=== PATIENT | female | born 1970 | race Caucasian/White ===

== ENCOUNTER → 2018-04-13 | Day surgery (SDC) | payer OTHER ==
--- OUTSIDE RECORDS SUMMARY | 2018-04-13 09:57 | XMS REPORT ---
:1970 [facility] Address [address] [place] [address] [address] Care Team Providers Name Role Phone Unavailable Unavailable Unavailable Payers Payer Name Policy Type Policy Number Effective Date Expiration Date Problems This patient has no known problems. Allergies, Adverse Reactions, Alerts This patient has no known allergies or adverse reactions. Medications This patient has no known medications.
--- NOTE | 2018-04-13 10:57 | RAD REPORT ---
EXAM DESCRIPTION: US - Extremity Nonvascular Complete - 04/13/2018 10:48 am CLINICAL HISTORY: R93.89 COMPARISON: Outside CT imaging from [facility] was reviewed. FINDINGS: Real-time sonography was performed of the left face and left parotid region for preprocedu re evaluation and planning. Outside imaging studies were reviewed. Radiologist directed ultrasound was performed which failed to demonstrate a suspicious mass despite p rolonged sonographic assessment. A few normal sized and appearing intraparotid lymph nodes were seen the largest measuring about 6 mm. All of the visualized lymph nodes in the parotid gland demonstrated a fatty hilus and normal reniform shape. IMPRESSION: No suspicious left parotid gland mass or surrounding mass could be identified despite pr olonged radiologist directed sonography. Several intraparotid lymph nodes were seen, however all demo nstrated benign sonographic features.
== END ==
LOC: FNA 09:43
PROVIDERS: ATTEND Otolaryngology
DX: R93.89 Abnormal findings on diagnostic imaging of other specified body structures (principal)
CPT/HCPCS: 76881

== ENCOUNTER 2018-05-10 00:09 | Emergency (ER) | payer OTHER ==
--- OUTSIDE RECORDS SUMMARY | 2018-05-10 00:11 | XMS REPORT ---
:1970 [facility] Address [address] [place] [address] [address] Care Team Providers Name Role Phone Unavailable Unavailable Unavailable Payers Payer Name Policy Type Policy Number Effective Date Expiration Date Problems This patient has no known problems. Allergies, Adverse Reactions, Alerts This patient has no known allergies or adverse reactions. Medications This patient has no known medications.
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
[2018-05-10 02:43] VITALS: TEMP 98.2; O2SAT 96
[2018-05-10 02:44] VITALS: BP 167/97
--- NOTE | 2018-05-10 08:21 | RAD REPORT ---
EXAM DESCRIPTION: RAD - Foot Left 3 View - 05/10/2018 1:43 am CLINICAL HISTORY: PAIN Trauma COMPARISON: No comparisons FINDINGS: Prominent soft tissue swelling is seen along the dorsal aspect of the forefoot. No acute f racture demonstrated. Large posterior and plantar calcaneal spurs are noted.
== END 2018-05-10 01:58 | disposition home or self-care (01) ==
LOC: ER 00:09
DX: S90.32XA Contusion of left foot, initial encounter (principal); M77.32 Calcaneal spur, left foot; W23.0XXA Caught, crushed, jammed, or pinched between moving objects, initial encounter; I10 Essential (primary) hypertension; Z79.899 Other long term (current) drug therapy
CPT/HCPCS: 99283

== ENCOUNTER 2019-03-09 21:18 | Inpatient (IN) | payer SELFPAY ==
--- OUTSIDE RECORDS SUMMARY | 2019-03-09 21:21 | XMS REPORT ---
:1970 [facility] Address [address] [place] [address] Dr. Hollingsworth [address] [place] [id number] Care Team Providers Name Role Phone Unavailable Unavailable Unavailable Payers Payer Name Policy Type Policy Number Effective Date Expiration Date Problems This patient has no known problems. Allergies, Adverse Reactions, Alerts This patient has no known allergies or adverse reactions. Medications This patient has no known medications.
[2019-03-09] MEDS ORDERED: KETOROLAC 30 MG/ML INJ ONE (21:59)
[2019-03-09] MEDS ORDERED: METOCLOPRAMIDE 10 MG/2mL INJ ONE (21:59)
[2019-03-09] MEDS ORDERED: NA CHLORIDE 0.9% 1,000 ML ONE (22:00)
[2019-03-09] MEDS ORDERED: DIPHENHYDRAMINE 50 MG/ML VIAL ONE (22:00)
[2019-03-09] MEDS ORDERED: IPRATROPIUM BROM 0.5MG/2.5ML ONE (23:28)
[2019-03-09] MEDS ORDERED: ALBUTEROL 2.5 MG/3 ML NEB SOL ONE (23:28)
[2019-03-10 00:09] LABS: Absolute Lymphocytes (CBC) 1.8 K/uL (0.7-4.9); Basophils % 0.8 % (0-1.3); Hematocrit 35.2 % (36.0-45.0); Lymphocytes % 28.7 % (15.3-44.8); MPV 6.9 fL (7.6-11.3); RBC Red Blood Cell Count 4.75 M/uL (3.86-4.86)
[2019-03-10 00:30] LABS: BUN Blood Urea Nitrogen 9 mg/dL (7-18); Bicarbonate 32 mmol/L (21-32); Glucose Level 108 mg/dL (74-106); NT PRO-BNP 257 pg/mL (<125); Potassium 3.5 mmol/L (3.5-5.1); Sodium Level 144 mmol/L (136-145)
--- NOTE | 2019-03-10 00:42 | ER ---
Nurse's Notes [facility] Name: Deyvi Avendano Age: 48 yrs Sex: Female : 1970 Arrival Date: 03/09/2019 Time: 21:29 Bed 5 Private MD: Diagnosis: Acute pulmonary edema;Migraine;Hypoxia Presentation: 03/09 21:32 Presenting complaint: Patient states: Migraine for the past 4 days, states that she has aj not had a migraine in years so she is not taking any preventative medications. Patient also reports that she has had a cough for the past 2 to 3 weeks. Patient's blood pressure is 162/107. Patient states that this is a normal blood pressure for her. Transition of care: patient was not received from another setting of care. Onset of symptoms was 2019. Risk Assessment: Do you want to hurt yourself or someone else? Patient reports no desire to harm self or others. Initial Sepsis Screen: Does the patient meet any 2 criteria? No. Patient's initial sepsis screen is negative. Does the patient have a suspected source of infection? No. Patient's initial sepsis screen is negative. Care prior to arrival: None. 21:32 Method Of Arrival: Ambulatory [facility] 21:32 Acuity: KENYETTA 3 aj1 Triage Assessment: 21:35 Headache History: The patient has had previous headaches and this one is similar to aj1 previous episodes. General: Appears in no apparent distress. uncomfortable, Behavior is calm, cooperative, appropriate for age. Pain: Complains of pain in top of head Pain currently is 6 out of 10 on a pain scale. Quality of pain is described as aching, Pain began 4 days ago Also complains of nausea. Neuro: Level of Consciousness is awake, alert, obeys commands. Cardiovascular: Patient's skin is warm and dry. Respiratory: Airway is patent Respiratory effort is even, unlabored, Respiratory pattern is regular, symmetrical. 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 - Social history:: Smoking status: Patient/guardian denies using tobacco. - Family history:: Father has/had diabetes, Mother has/had cancer, hypertension. - Ebola Screening: : Patient denies travel to an Ebola-affected area in the 21 days before illness onset. Screenin:59 Abuse screen: Denies threats or abuse. Nutritional screening: No deficits noted. vc Tuberculosis screening: No symptoms or risk factors identified. Fall Risk None identified. Assessment: 22:53 General: Appears in no apparent distress. uncomfortable, ill, obese, Behavior is calm, vc cooperative, appropriate for age. Pain: Complains of pain in head and behind eyes Pain currently is 8 out of 10 on a pain scale. Pain began 2-3 days ago. Alleviated by nothing. Neuro: Level of Consciousness is awake, alert, obeys commands, Oriented to person, place, time. Cardiovascular: Capillary refill < 3 seconds Patient's skin is warm and dry. Respiratory: Airway is patent Respiratory effort is patient is SOB on exertion. Respiratory pattern is regular. GI: Abdomen is round non-distended, obese. : No signs and/or symptoms were reported regarding the genitourinary system. EENT: Reports photophobia. Derm: Skin is intact, is healthy with good turgor. Musculoskeletal: Range of motion: intact in all extremities. 23:00 Reassessment: Patient and/or family updated on plan of care and expected duration. Pain vc level reassessed. Patient is alert, oriented x 3, equal unlabored respirations, skin warm/dry/pink. 23:15 Reassessment: patient states she no longer has a headache. Patients laying on right vc side with eyes closed, oxygen saturation is 86%, placed on 3L O2 via nasal canula. patients SpO2 increased to 92%. Patient states she was awake and not sleeping. Provider notified. 03/10 00:00 Reassessment: Patient and/or family updated on plan of care and expected duration. Pain vc level reassessed. patient laying with eyes closed, unlabored respirations. Patient denies pain at this time. 00:58 Reassessment: Hospitalist at bedside. vc Vital Signs: 03/09 21:35 BP 162 / 107; Pulse 87; Resp 20; Temp 98.3; Pulse Ox 92% on R/A; Weight 126.1 kg (R); aj1 Height 5 ft. 2 in. (157.48 cm) (R); 22:00 BP 183 / 116; Pulse 88; Resp 18; Pulse Ox 93% on R/A; Pain 10/10; vc 23:00 BP 173 / 96; Pulse 88; Pulse Ox 90% on 2 lpm NC; Pain 0/10; vc 23:15 Resp 18; Pulse Ox 86% on 2 lpm NC; vc 23:17 Pulse Ox 92% on 4 lpm NC; vc 03/10 00:00 BP 148 / 76; Pulse 87; Resp 16; Pulse Ox 92% on 3 lpm NC; Weight 126.1 kg; Height 5 ft. vc 2 in. (157.48 cm); Pain 0/10; 01:00 BP 165 / 98; Pulse 88; Resp 18; Temp 97.9; Pulse Ox 96% on 3 lpm NC; Pain 0/10; vc 00:00 Body Mass Index 50.85 (126.10 kg, 157.48 cm) vc Elgin Coma Score: 03/09 22:56 Eye Response: spontaneous(4). Verbal Response: oriented(5). Motor Response: obeys kb commands(6). Total: 15. ED Course: 21:29 Patient arrived in ED. cf2 21:35 Triage completed. aj1 21:35 Arm band placed on Patient placed in an exam room. aj1 21:38 Mary Grace Storey, BONIFACIO is Primary Nurse. vc 21:39 Domin[facility] Stewart [facility]C [facility] kb 21:39 Luis Alberto Croft MD is Attending Physician. kb 21:40 Patient has correct armband on for positive identification. Placed in gown. Bed in low vc position. Call light in reach. 22:05 Inserted saline lock: 20 gauge in right forearm, using aseptic technique. ds4 22:19 Chest Single View XRAY In Process Unspecified. EDMS 03/10 00:41 Emerson Mcdonald is Hospitalizing Provider. kb 01:26 No provider procedures requiring assistance completed. Patient admitted, IV remains in vc place. Administered Medications: 03/09 22:10 Drug: NS 0.9% 1000 ml Route: IV; Rate: 1000 ml; Site: right forearm; vc 03/10 01:31 Follow up: Response: Pain is decreased; IV Status: Order to discontinue infusion vc 03/09 22:10 Drug: Reglan 10 mg Route: IVP; Site: right forearm; vc 03/10 01:31 Follow up: Response: No adverse reaction vc 03/09 22:10 Drug: Benadryl 12.5 mg Route: IVP; Site: right forearm; vc 03/10 01:30 Follow up: Response: No adverse reaction vc 03/09 22:10 Drug: TORadol - Ketorolac 15 mg Route: IVP; Site: right upper arm; vc 03/10 00:03 Follow up: Response: Pain is decreased vc 03/09 23:30 Drug: Albuterol 2.5 mg Route: Inhalation; vc 23:30 Drug: AtroVENT Aerosol 0.5 mg Route: Inhalation; vc 03/10 01:00 Drug: Rocephin 1 grams Route: IV; Rate: calculated rate; Site: right forearm; vc 01:12 Follow up: Response: No adverse reaction; IV Status: Completed infusion vc 01:30 Follow up: Response: No adverse reaction vc 01:00 Drug: Lasix 40 mg Route: IVP; Site: right forearm; vc 01:29 Follow up: Response: No adverse reaction vc Outcome: 00:41 Decision to Hospitalize by Provider. kb 01:26 Admitted to ER Hold. Please see [facility] for further documentation. vc 01:26 Condition: good 01:26 Instructed on the need for admit. 03:58 Patient left the ED. vc Signatures: Dispatcher [employer] EDDominique Ayala, FINISHING TRIMMER-C FINISHING TRIMMER-CkDonna Bourgeois RN RN aj1 Phill Estevez ds4 Mark Ahumada cf2 Mary Grace Storey RN RN vc Corrections: (The following items were deleted from the chart) 01:20 03/09 23:30 Reassessment: patient states headache is decreased. vc vc 03/10 01:21 03/09 21:35 LMP N/A - Irregular menses aj1 vc
--- NOTE | 2019-03-10 00:42 | EDPHYS ---
Physician Documentation [facility] Name: Deyvi Avendano Age: 48 yrs Sex: Female : 1970 Arrival Date: 03/09/2019 Time: 21:29 Bed 5 Private MD: ED Physician Luis Alberto Croft HPI: 03/09 22:10 This 48 yrs old Female presents to ER via Ambulatory with complaints of kb Headache. 22:10 The patient complains of pain to the top of head. kb 22:58 The patient describes the headache as constant, throbbing. Onset: The symptoms/episode kb began/occurred 4 day(s) ago. Associated signs and symptoms: Pertinent positives: Photophobia. Severity of symptoms: At its worst the pain was mild, moderate, in the emergency department the pain is unchanged. Headache History: The patient has had previous headaches and this one is similar to previous episodes. The symptoms are alleviated by nothing. the symptoms are aggravated by lights. The patient has experienced similar episodes in the past. The patient has not recently seen a physician. Pt reports headache for 4 days. States she has a history of migraines, but hasn't had on in years. States she normally takes Advil Migraine and they go away, but it didn't work for this one. states this headache feels similar to the ones she has had in the past. Also reports cough for 3 weeks, denies fever. 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 - Social history:: Smoking status: Patient/guardian denies using tobacco. - Family history:: Father has/had diabetes, Mother has/had cancer, hypertension. - Ebola Screening: : Patient denies travel to an Ebola-affected area in the 21 days before illness onset. ROS: 22:57 Constitutional: Negative for fever, chills, and weight loss, ENT: Negative for injury, kb pain, and discharge, Neck: Negative for injury, pain, and swelling, Cardiovascular: Negative for chest pain, palpitations, and edema, Abdomen/GI: Negative for abdominal pain, nausea, vomiting, diarrhea, and constipation, Back: Negative for injury and pain, : Negative for injury, bleeding, discharge, and swelling, MS/Extremity: Negative for injury and deformity, Skin: Negative for injury, rash, and discoloration. 22:57 Respiratory: Positive for cough, with no reported sputum, Negative for dyspnea on exertion, hemoptysis, orthopnea, pleurisy, shortness of breath, sputum production, wheezing. 22:57 Neuro: Positive for headache. Exam: 22:57 Constitutional: This is a well developed, well nourished patient who is awake, alert, kb and in no acute distress. Head/Face: Normocephalic, atraumatic. Eyes: Pupils equal round and reactive to light, extra-ocular motions intact. Lids and lashes normal. Conjunctiva and sclera are non-icteric and not injected. Cornea within normal limits. Periorbital areas with no swelling, redness, or edema. ENT: Nares patent. No nasal discharge, no septal abnormalities noted. Tympanic membranes are normal and external auditory canals are clear. Oropharynx with no redness, swelling, or masses, exudates, or evidence of obstruction, uvula midline. Mucous membranes moist. Neck: Trachea midline, no thyromegaly or masses palpated, and no cervical lymphadenopathy. Supple, full range of motion without nuchal rigidity, or vertebral point tenderness. No Meningismus. Chest/axilla: Normal chest wall appearance and motion. Nontender with no deformity. No lesions are appreciated. Cardiovascular: Regular rate and rhythm with a normal S1 and S2. No gallops, murmurs, or rubs. Normal PMI, no JVD. No pulse deficits. Respiratory: Lungs have equal breath sounds bilaterally, clear to auscultation and percussion. No rales, rhonchi or wheezes noted. No increased work of breathing, no retractions or nasal flaring. Abdomen/GI: Soft, non-tender, with normal bowel sounds. No distension or tympany. No guarding or rebound. No evidence of tenderness throughout. Skin: Warm, dry with normal turgor. Normal color with no rashes, no lesions, and no evidence of cellulitis. MS/ Extremity: Pulses equal, no cyanosis. Neurovascular intact. Full, normal range of motion. Vital Signs: 21:35 BP 162 / 107; Pulse 87; Resp 20; Temp 98.3; Pulse Ox 92% on R/A; Weight 126.1 kg (R); aj1 Height 5 ft. 2 in. (157.48 cm) (R); 22:00 BP 183 / 116; Pulse 88; Resp 18; Pulse Ox 93% on R/A; Pain 10/10; vc 23:00 BP 173 / 96; Pulse 88; Pulse Ox 90% on 2 lpm NC; Pain 0/10; vc 23:15 Resp 18; Pulse Ox 86% on 2 lpm NC; vc 23:17 Pulse Ox 92% on 4 lpm NC; vc 03/10 00:00 BP 148 / 76; Pulse 87; Resp 16; Pulse Ox 92% on 3 lpm NC; Weight 126.1 kg; Height 5 ft. vc 2 in. (157.48 cm); Pain 0/10; 01:00 BP 165 / 98; Pulse 88; Resp 18; Temp 97.9; Pulse Ox 96% on 3 lpm NC; Pain 0/10; vc 00:00 Body Mass Index 50.85 (126.10 kg, 157.48 cm) vc [place] Coma Score: 03/09 22:56 Eye Response: spontaneous(4). Verbal Response: oriented(5). Motor Response: obeys kb commands(6). Total: 15. MDM: 21:40 Patient medically screened. kb 22:56 Data reviewed: vital signs, nurses notes. Data interpreted: Pulse oximetry: on room air kb is 96 %. Interpretation: normal. 03/10 00:30 ED course: Headache resolved. kb 00:38 Physician consultation: Emerson Mcdonald was contacted at 00:39, regarding admission, to the telemetry unit. patient's condition, and will see patient in ED, shortly. ED course: After neb treatment, pt's oxygen level was 86-88% on room air. When pt falls asleep oxygen level decreased to 79%. Will admit pt for pulmonary edema and hypoxia.. 00:41 ED course: Pt has never had pulmonary edema in the past. kb 03/09 23:24 Order name: CBC with Diff; Complete Time: 00:22 kb 03/09 23:24 Order name: Basic Metabolic Panel; Complete Time: 00:31 kb 03/09 21:52 Order name: Chest Single View XRAY kb 03/09 23:24 Order name: BNP; Complete Time: 00:31 kb 03/10 03:36 Order name: ABG Arterial Blood Gas EDMS 03/10 00:38 Order name: EKG; Complete Time: 00:38 kb 03/09 21:52 Order name: IV Start; Complete Time: 22:14 kb 03/10 00:38 Order name: EKG - Nurse/Tech; Complete Time: 02:21 kb 03/10 00:40 Order name: Oxygen Per Protocol; Complete Time: 00:42 kb Administered Medications: 03/09 22:10 Drug: NS 0.9% 1000 ml Route: IV; Rate: 1000 ml; Site: right forearm; vc 03/10 01:31 Follow up: Response: Pain is decreased; IV Status: Order to discontinue infusion vc 03/09 22:10 Drug: Reglan 10 mg Route: IVP; Site: right forearm; vc 03/10 01:31 Follow up: Response: No adverse reaction vc 03/09 22:10 Drug: Benadryl 12.5 mg Route: IVP; Site: right forearm; vc 03/10 01:30 Follow up: Response: No adverse reaction vc 03/09 22:10 Drug: TORadol - Ketorolac 15 mg Route: IVP; Site: right upper arm; vc 03/10 00:03 Follow up: Response: Pain is decreased vc 03/09 23:30 Drug: Albuterol 2.5 mg Route: Inhalation; vc 23:30 Drug: AtroVENT Aerosol 0.5 mg Route: Inhalation; vc 03/10 01:00 Drug: Rocephin 1 grams Route: IV; Rate: calculated rate; Site: right forearm; vc 01:12 Follow up: Response: No adverse reaction; IV Status: Completed infusion vc 01:30 Follow up: Response: No adverse reaction vc 01:00 Drug: Lasix 40 mg Route: IVP; Site: right forearm; vc 01:29 Follow up: Response: No adverse reaction vc Disposition: 04:29 Co-signature as Attending Physician, Luis Alberto Croft MD. rn Disposition: 03/10/19 00:41 Hospitalization ordered by Emerson Mcdonald for Inpatient Admission. Preliminary diagnosis are Acute pulmonary edema, Migraine, Hypoxia. - Bed requested for Telemetry/MedSurg (Inpatient). - Status is Inpatient Admission. vc - Condition is Stable. - Problem is new. - Symptoms are unchanged. UTI on Admission? No Signatures: Dispatcher [employer] EDMS Dominique Stewart, TAMERA-Araceli PHILIP-Donna Kiser RN RN aj1 Kaila Luu RN RN bb Nieto, Roman, MD MD rn Lasagna, Tonya, RN RN tl1 Mary Grace Storey RN RN vc Corrections: (The following items were deleted from the chart) 03/09 22:58 22:57 Constitutional: This is a well developed, well nourished patient who is awake, kb alert, and in no acute distress. Head/Face: Normocephalic, atraumatic. ENT: Nares patent. No nasal discharge, no septal abnormalities noted. Tympanic membranes are normal and external auditory canals are clear. Oropharynx with no redness, swelling, or masses, exudates, or evidence of obstruction, uvula midline. Mucous membranes moist. Neck: Trachea midline, no thyromegaly or masses palpated, and no cervical lymphadenopathy. Supple, full range of motion without nuchal rigidity, or vertebral point tenderness. No Meningismus. Chest/axilla: Normal chest wall appearance and motion. Nontender with no deformity. No lesions are appreciated. Cardiovascular: Regular rate and rhythm with a normal S1 and S2. No gallops, murmurs, or rubs. Normal PMI, no JVD. No pulse deficits. Respiratory: Lungs have equal breath sounds bilaterally, clear to auscultation and percussion. No rales, rhonchi or wheezes noted. No increased work of breathing, no retractions or nasal flaring. Abdomen/GI: Soft, non-tender, with normal bowel sounds. No distension or tympany. No guarding or rebound. No evidence of tenderness throughout. Skin: Warm, dry with normal turgor. Normal color with no rashes, no lesions, and no evidence of cellulitis. MS/ Extremity: Pulses equal, no cyanosis. Neurovascular intact. Full, normal range of motion. luciano 03/10 00:31 03/09 22:58 Pt reports headache for 4 days. States she has a history of migraines, but kb hasn't had on in years. States she normally takes Advil Migraine and they go away, but it didn't work for this one. states this headache feels similar to the ones she has had in the past. . luciano 03/10 00:40 00:30 Counseling: I had a detailed discussion with the patient and/or guardian luciano regarding: the historical points, exam findings, and any diagnostic results supporting the discharge/admit diagnosis, lab results, radiology results, the need for outpatient follow up, a family practitioner, to return to the emergency department if symptoms worsen or persist or if there are any questions or concerns that arise at home, luciano : 00:41 Hospitalization Ordered by Emerson Mcdonald for Inpatient Admission. Preliminary bb diagnosis is Acute pulmonary edema; Migraine; Hypoxia. Bed requested for Telemetry/MedSurg (Inpatient). Status is Inpatient Admission. Condition is Stable. Problem is new. Symptoms are unchanged. UTI on Admission? No. kb 01:00 01:03/10/2019 00:41 Hospitalization Ordered by Emerson Mcdonald for Inpatient bb Admission. Preliminary diagnosis is Acute pulmonary edema; Migraine; Hypoxia. Bed requested for [facility] ER HOLD. Status is Inpatient Admission. Condition is Stable. Problem is new. Symptoms are unchanged. UTI on Admission? No. bb 02:03 01:00 03/10/2019 00:41 Hospitalization Ordered by Emerson Mcdonald for Inpatient tl1 Admission. Preliminary diagnosis is Acute pulmonary edema; Migraine; Hypoxia. Bed requested for [facility] ER HOLD. Status is Inpatient Admission. Condition is Stable. Problem is new. Symptoms are unchanged. UTI on Admission? No. bb 03:58 02:03 03/10/2019 00:41 Hospitalization Ordered by Emerson Mcdonald for Inpatient vc Admission. Preliminary diagnosis is Acute pulmonary edema; Migraine; Hypoxia. Bed requested for Telemetry/MedSurg (Inpatient). Status is Inpatient Admission. Condition is Stable. Problem is new. Symptoms are unchanged. UTI on Admission? No. tl1
[2019-03-10] MEDS ORDERED: FUROSEMIDE 40 MG/4 ML VIAL ONE ×2 (00:53→16:33)
[2019-03-10] MEDS ORDERED: CEFTRIAXONE/SWI 1gm 1 GM/10 ML SYR ONE (00:53)
--- NOTE | 2019-03-10 01:56 | P.HP ---
Certification for Inpatient Patient admitted to: Observation With expected LOS: <2 Midnights Practitioner: I am a practitioner with admitting privileges, knowledge of patient current condition, hospital course, and medical plan of care. Services: Services provided to patient in accordance with Admission requirements found in Title 42 Section 412.3 of the Code of Federal Regulations Patient History Date of Service: 03/10/19 Reason for admission: Headache, shortness of breath History of Present Illness: 48-year-old morbidly obese woman with a history of hypertension presented to the emergency department with a complaint of headache. Her workup in the ED which included a chest x-ray demonstrated evidence of pulmonary edema. Patient noted to desaturate to 86% on 2 L of oxygen during sleep. She reports shortness of breath of 3-4 weeks duration. She has been following with Dr. Worley for hypertension and coronary artery disease. Her blood work in the ED is unremarkable except anemia. I suspect patient has obstructive sleep apnea causing hypoxemia during sleep. Patient is placed under observation for further management of CHF. Allergies morphine Allergy (Verified 03/10/19 06:07) Itching/Hives/Rash Home Medications: lisinopriL [Prinivil*] 1 tab PO BID 02/04/14 predniSONE [Deltasone] 20 mg PO DAILY #7 tab 10/15/18 Amlodipine [Norvasc] 10 mg PO DAILY 03/10/19 Carvedilol [Coreg] 3.125 mg PO TID 03/10/19 Hydralazine [Apresoline] 10 mg PO PRN MDD unknown 03/10/19 - Past Medical/Surgical History Diabetic: No -: Breast Ca -: HTN -: [place] -: DVT -: Left knee replacement -: choley -: c-sec x3 -: carpal tunnel left hand - Family History Father -: Diabetes Mother -: Diabetes, Other (see notes) Notes: Parkinsons - Social History Alcohol use: No CD- Drugs: No Caffeine use: Yes Review of Systems Other: General: No fever, no malaise, no unintentional weight loss. Eyes: No eye discharge, Respiratory: No cough. CVS: No chest pain, no palpitation, no lightheadedness. GI: No abdominal pain, no nausea no vomit, no constipation, no diarrhea. Genitourinary: No dysuria, no urinary frequency, no incontinence, no hematuria. Musculoskeletal: No joint pains, or joint swelling, no gait instability. Neurology: No asymmetric weakness, no problem with swallowing. Except as documented, all other systems reviewed and negative. Physical Examination - Physical Exam General: Alert, In no apparent distress, Oriented x3, Obese HEENT: Normocephalic, PERRLA, Mucous membr. moist/pink, Sclerae nonicteric Neck: Supple, JVD not distended, No Thyromegaly Respiratory: Clear to auscultation bilaterally, Diminished (Diffuse diminished breath sounds) Cardiovascular: Regular rate/rhythm, Normal S1 S2 Capillary refill: <2 Seconds Gastrointestinal: Normal bowel sounds, Soft and benign, No tenderness Musculoskeletal: No swelling, No erythema Integumentary: No rashes, No erythema Neurological: Normal speech, Normal strength at 5/5 x4 extr - Studies Laboratory Data (last 24 hrs) 03/09/19 23:50: Sodium 144, Potassium 3.5, BUN 9, Creatinine 0.62, Glucose 108 H 03/09/19 23:50: WBC 6.3, Hgb 11.4 L, Hct 35.2 L, Plt Count 269 Assessment and Plan - Problems (Diagnosis) (1) Pulmonary edema Current Visit: Yes Status: Acute (2) Acute respiratory failure with hypoxia Current Visit: Yes Status: Acute (3) Hypertensive disorder, systemic arterial Onset Date: 02/06/14 Current Visit: Yes Status: Active (4) Obesity Onset Date: 02/06/14 Current Visit: No Status: Chronic - Plan Place patient under observation. Trend troponin Start IV Lasix. Check blood gas. Obtain echocardiogram. Monitor intake and output Continue home antihypertensives. BIPAP as needed for hypercapnea. Patient will need sleep study as an outpatient. Home oxygen qualification on discharge. Patient may qualify for nocturnal oxygen. - Advance Directives Does patient have a Living Will: No Does patient have a Durable POA for Healthcare: No
[2019-03-10 02:12] VITALS: BMI 50.8
[2019-03-10] MEDS: ALBUTEROL 2.5 MG/3 ML NEB SOL NEB SCH ×4 (02:17→20:55)
[2019-03-10] MEDS ORDERED: ONDANSETRON 4 MG/2 ML VIAL IV PRN (02:17)
[2019-03-10 03:34] LABS: Arterial Blood Carboxyhemoglob 1.1 % (0-1.5); Blood Gas Oxyhemoglobin 92.5 % (94-97); Blood O2 Saturation 94.2 % (92-98.5)
[2019-03-10] MEDS: IPRATROPIUM BROM 0.5MG/2.5ML NEB SCH ×5 (04:00→20:55)
[2019-03-10 05:45] LABS: Troponin I 0.16 ng/mL (0.0-0.045)
[2019-03-10] MEDS ORDERED: POTASSIUM CL SA 10 MEQ TAB PO ONE (06:00)
--- NOTE | 2019-03-10 06:45 | EKG ---
Test Date: 2019-03-10 Test Time: 01:39:08 Stable Manager: ALANA MEASUREMENT RESULTS: Intervals: Rate: 83 DC: 150 QRSD: 86 QT: 384 QTc: 451 [place]: P: 45 DC: 150 QRS: 21 T: 117 INTERPRETIVE STATEMENTS: Normal sinus rhythm Possible Left atrial enlargement T wave abnormality, consider lateral ischemia Abnormal ECG Compared to ECG 10/15/2018 03:31:15 T-wave abnormality now present Possible ischemia now present Electronically Signed On 03-10-19 06:44:52 PARTS DEPARTMENT SUPERVISOR by Wilson Worley
[2019-03-10] MEDS ORDERED: INFLUENZA VACCINE (for 3y+) 0.5 ML DOSE IMVAC ONE (08:00)
[2019-03-10] MEDS: FUROSEMIDE 40 MG/4 ML VIAL IV SCH ×2 (09:09→16:51)
[2019-03-10] MEDS: ENOXAPARIN 40 MG/0.4 ML SQ SCH (09:09)
[2019-03-10] MEDS: ACETAMINOPHEN 500 MG TAB PO PRN ×2 (10:45→17:59)
[2019-03-10] MEDS ORDERED: CODEINE 30MG/APAP 300MG TAB PO PRN (10:52)
--- NOTE | 2019-03-10 10:58 | RAD REPORT ---
EXAM DESCRIPTION: RAD - Chest Single View - 03/09/2019 10:22 pm CLINICAL HISTORY: COUGH COMPARISON: None. 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 There is moderate pulmonary edema. There are small pleural effusion s. There is no pneumothorax. There are no acute osseous findings. IMPRESSION: Moderate pulmonary edema. Electronically signed by: Wilber Tinoco MD 03/10/2019 12:20 AM BRIM POUNCING MACHINE OPERATOR
--- NOTE | 2019-03-10 13:32 | ECHO ---
HEIGHT: 5 ft 2 in WEIGHT: 278 lb 0 oz DATE OF STUDY: 03/10/[address]: michael merino 2-DIMENSIONAL: YES M.MODE: YES DOPPLER: YES COLOR FLOW: YES TDS: YES PORTABLE: NO DEFINITY: NO BUBBLE STUDY: NO DIAGNOSIS: PULMONARY EDEMA CARDIAC HISTORY: CATHERIZATION: NO SURGERY: NO PROSTHETIC VALVE: NO PACEMAKER: NO MEASUREMENTS (cm) DIASTOLIC (NORMALS) SYSTOLIC (NORMALS) IVSd 1.2 (0.6-1.2) LA Diam 4.2 (1.9-4.0) LVEF 70% LVIDd 3.6 (3.5-5.7) LVIDs 2.2 (2.0-3.5) %FS 38% LVPWd 1.2 (0.6-1.2) Ao Diam 2.6 (2.0-3.7) 2 DIMENSIONAL ASSESSMENT: RIGHT ATRIUM: NORMAL LEFT ATRIUM: DILATED RIGHT VENTRICLE: NORMAL LEFT VENTRICLE: NORMAL TRICUSPID VALVE: NORMAL MITRAL VALVE: NORMAL PULMONIC VALVE: NORMAL AORTIC VALVE: NORMAL PERICARDIAL EFFUSION: NONE AORTIC ROOT: NORMAL LEFT VENTRICULAR WALL MOTION: NORMAL. DOPPLER/COLOR FLOW: NORMAL. COMMENTS: TECHNICALLY DIFFICULT STUDY. GROSSLY NORMAL LEFT VENTRICULAR EJECTION FRACTION AND SIZE. NO EFFUSION. NO WALL MOTION ABNORMALITY. TECHNOLOGIST: TIMMY OBRIEN
[2019-03-10] MEDS ORDERED: ACETAMINOPHEN 500 MG TAB ONE (18:00)
[2019-03-10] MEDS ORDERED: IPRATROPIUM BROM 0.5MG/2.5ML ONE (20:54)
[2019-03-10] MEDS ORDERED: ALBUTEROL 2.5 MG/3 ML NEB SOL ONE ×2 (20:54→23:11)
[2019-03-10] MEDS: carvediloL 12.5 MG TAB PO SCH (23:07)
[2019-03-11] MEDS: IPRATROPIUM BROM 0.5MG/2.5ML NEB SCH ×4 (00:02→13:00)
[2019-03-11] MEDS ORDERED: ALBUTEROL 2.5 MG/3 ML NEB SOL ONE ×2 (01:43→07:56)
[2019-03-11] MEDS ORDERED: IPRATROPIUM BROM 0.5MG/2.5ML ONE ×2 (01:43→07:56)
[2019-03-11] MEDS: ALBUTEROL 2.5 MG/3 ML NEB SOL NEB SCH ×3 (03:45→13:00)
[2019-03-11 06:37] LABS: Absolute Lymphocytes (CBC) 1.3 K/uL (0.7-4.9); Basophils % 0.5 % (0-1.3); Hematocrit 37.3 % (36.0-45.0); Lymphocytes % 21.9 % (15.3-44.8); MPV 6.9 fL (7.6-11.3); RBC Red Blood Cell Count 4.99 M/uL (3.86-4.86)
[2019-03-11 07:06] LABS: BUN Blood Urea Nitrogen 13 mg/dL (7-18); Bicarbonate 36 mmol/L (21-32); Glucose Level 112 mg/dL (74-106); Magnesium 1.9 mg/dL (1.8-2.4); Phosphorus 3.5 mg/dL (2.5-4.9); Potassium 3.6 mmol/L (3.5-5.1); Sodium Level 141 mmol/L (136-145)
[2019-03-11] MEDS ORDERED: ASPIRIN 325 MG TAB PO SCH (09:00)
[2019-03-11] MEDS ORDERED: POTASSIUM CL SA 10 MEQ TAB PO ONE (09:00)
[2019-03-11] MEDS ORDERED: AMLODIPINE 10 MG TAB PO SCH (09:00)
[2019-03-11] MEDS ORDERED: lisinopriL 20 MG TAB PO SCH (09:00)
[2019-03-11] MEDS ORDERED: ENOXAPARIN 40 MG/0.4 ML SQ ONE (09:23)
[2019-03-11] MEDS ORDERED: FUROSEMIDE 40 MG/4 ML VIAL ONE (09:23)
--- NOTE | 2019-03-11 09:25 | RAD REPORT ---
EXAM DESCRIPTION: RAD - Chest Pa And Lat (2 Views) - 03/11/2019 8:33 am CLINICAL HISTORY: respiratory failure COMPARISON: Chest Single View dated 03/09/2019; Chest Pa And Lat (2 Views) dated 10/15/2018 TECHNIQUE: Frontal and lateral views of the chest were obtained. FINDINGS: The lungs are underinflated. Interstitial and alveolar opacities are present but improved from the prior study. Heart size is similar to decreased from comparison. Vascular engorgement is l ess prominent. No pneumothorax present. No enlarging pleural effusion. No acute bony finding noted. No aortic abnormality. IMPRESSION: Pulmonary edema pattern has shown substantial improvement but not complete resolution si nce March 09.
[2019-03-11] MEDS: carvediloL 12.5 MG TAB PO SCH (09:27)
[2019-03-11] MEDS: FUROSEMIDE 40 MG/4 ML VIAL IV SCH (09:27)
[2019-03-11] MEDS: ENOXAPARIN 40 MG/0.4 ML SQ SCH (09:27)
[2019-03-11 09:39] LABS: Arterial Blood Carboxyhemoglob 1.8 % (0-1.5); Blood O2 Saturation 94.1 % (92-98.5)
[2019-03-11] MEDS: ACETAMINOPHEN 500 MG TAB PO PRN (09:48)
[2019-03-11] MEDS ORDERED: ACETAMINOPHEN 500 MG TAB ONE (09:51)
[2019-03-11] MEDS ORDERED: INFLUENZA VACCINE (for 3y+) 0.5 ML DOSE IMVAC ONE (10:00)
[2019-03-11 12:02] VITALS: BP 116/60; TEMP 97.2
--- NOTE | 2019-03-11 12:26 | P.CNS ---
Date of Consult: 03/11/19 Reason for Consult: Respiratory failure Chief Complaint: Headache chronic cough History of Present Illness: Patient is 48 years of age with a history of migraine admitted with headache which was persistent and chronic cough for 3 months denies any shortness of breath or symptoms of sleep apnea was found to be hypoxic hypercarbic as never smoked as not drink feeling fine now denies any pulmonary complaints chest x- ray abnormal patient very hypoxic hypercarbic on admission mild microcytic anemia feeling fine now patient had some edema Allergies morphine Allergy (Verified 03/10/19 06:07) Itching/Hives/Rash Home Medications: Aspirin 325 mg PO DAILY 03/10/19 Carvedilol [Coreg] 12.5 mg PO BID 03/10/19 Paroxetine HCl [Paxil] 20 mg PO BID 03/10/19 Codeine/APAP [Tylenol #3*] 1 tab PO Q6H PRN tab 03/11/19 - Past Medical/Surgical History Diabetic: No -: Breast Ca -: HTN -: [place] -: DVT -: Left knee replacement -: choley -: c-sec x3 -: carpal tunnel left hand - Family History Father Medical History: Diabetes Mother Medical History: Diabetes, Other (see notes) Notes: Parkinsons - Social History Smoking Status: Never smoker Alcohol use: No CD- Drugs: No Caffeine use: Yes Place of Residence: Home Review of Systems 10-point ROS is otherwise unremarkable Physical Examination Temp Pulse Resp BP Pulse Ox 97.2 F 76 17 116/60 95 03/11/19 12:00 03/11/19 12:00 03/11/19 12:00 03/11/19 12:00 03/11/19 08:00 General: Alert, In no apparent distress, Oriented x3 HEENT: Atraumatic Neck: Supple Respiratory: Clear to auscultation bilaterally Cardiovascular: No edema, Regular rate/rhythm Gastrointestinal: Normal bowel sounds, Soft and benign - Problems (1) Respiratory failure with hypoxia and hypercapnia Current Visit: Yes Status: Acute Plan: Patient is 48 years of age admitted with headache and a chronic cough found to have hypoxic hypercapnic respiratory failure denies any symptoms of sleep apnea although she has risk factors complaining of chronic cough for 3 months possible that she has obesity hypoventilation syndrome will need an outpatient sleep study mild microcytic anemia BNP is only mildly elevated chest x-ray possible some interstitial changes I recommend stopping the losartan for now continue with Coreg amlodipine add spironolactone. She will need a cardiac evaluation a troponins were elevated abnormal EKG she will need a cardiac workup to ensure that patient does not have coronary artery disease Qualifiers: Chronicity: unspecified Qualified Code(s): J96.91 - Respiratory failure, unspecified with hypoxia; J96.92 - Respiratory failure, unspecified with hypercapnia
[2019-03-11 12:36] VITALS: O2SAT 91
--- NOTE | 2019-03-11 14:44 | P.DS ---
Admission Date: 03/10/19 Discharge Date: 03/11/19 Discharge Condition: GOOD Reason for Admission: Headache chronic cough Brief History of Present Illness: Patient is a 48-year-old female with unknown past medical history of morbid obesity and hypertension and possibly undiagnosed AURELIANO who presented to the hospital with worsening shortness of breath. Hospital Course: Presented with evidence of hypoxic and hypercapnic respiratory failure and required supplemental oxygen on admission. Workup during this admission included a chest x-ray which revealed a moderate volume overload. She was started on on diuresis with IV Lasix and was eventually weaned off oxygen. An echocardiogram showed a preserved ejection fraction. However this was a suboptimal study due to patient's body habitus. Right-sided pressures and diastolic function was not well described. Pulmonary was involved, consider diastolic CHF was a possible etiology. Pulmonary also recommended discontinuing DENISA-inhibitor due to ongoing cough. She will be discharge on hydrochlorothiazide. Of note, Cardiology was also consulted to further evaluate for the etiology of her pulmonary edema since EKG showed evidence of ischemia. Cardiology cleared patient for discharge. Vital Signs/Physical Exam: Temp Pulse Resp BP Pulse Ox 97.2 F 76 17 116/60 95 03/11/19 12:00 03/11/19 12:00 03/11/19 12:00 03/11/19 12:00 03/11/19 08:00 General: Alert, In no apparent distress, Cooperative, Obese, Other (Morbidly obese) HEENT: Atraumatic, Normocephalic, EOMI Neck: Supple Respiratory: Normal air movement (No crackles or wheezing heard) Cardiovascular: No edema, Normal pulses, Regular rate/rhythm, Normal S1 S2 Gastrointestinal: Normal bowel sounds, Soft and benign, Non-distended Musculoskeletal: No swelling, No contractures, No erythema, No tenderness Integumentary: Warmth Neurological: Normal gait, Normal speech, Normal affect Laboratory Data at Discharge: WBC 6.0 K/uL (4.3-10.9) 03/11/19 05:46 Hgb 12.1 g/dL (12.0-15.0) 03/11/19 05:46 Hct 37.3 % (36.0-45.0) 03/11/19 05:46 Plt Count 268 K/uL (152-406) 03/11/19 05:46 Sodium 141 mmol/L (136-145) 03/11/19 05:46 Potassium 3.6 mmol/L (3.5-5.1) 03/11/19 05:46 BUN 13 mg/dL (7-18) 03/11/19 05:46 Creatinine 0.67 mg/dL (0.55-1.3) 03/11/19 05:46 Glucose 112 mg/dL (74-106) H 03/11/19 05:46 Phosphorus 3.5 mg/dL (2.5-4.9) 03/11/19 05:46 Magnesium 1.9 mg/dL (1.8-2.4) 03/11/19 05:46 Troponin I 0.15 ng/mL (0.0-0.045) H 03/10/19 13:05 Triglycerides 128 mg/dL (<150) 03/10/19 05:04 Cholesterol 171 mg/dL (<200) 03/10/19 05:04 HDL Cholesterol 43 mg/dL (40-60) 03/10/19 05:04 Cholesterol/HDL Ratio 3.98 03/10/19 05:04 Home Medications: Aspirin 325 mg PO DAILY 03/10/19 Carvedilol [Coreg] 12.5 mg PO BID 03/10/19 Paroxetine HCl [Paxil] 20 mg PO BID 03/10/19 Codeine/APAP [Tylenol #3*] 1 tab PO Q6H PRN tab 03/11/19 Hydrochlorothiazide 25 mg PO DAILY #30 tablet 03/11/19 New Medications: Hydrochlorothiazide 25 mg PO DAILY #30 tablet Time spent managing pt's care (in minutes): 35
--- NOTE | 2019-03-11 19:04 | CON ---
History Of Present Illness: Mrs. Avendano is 48. She came to the hospital because of a headache. She w as found to be hypercapnic as soon as she was placed on BiPAP and had a better pCO2 and better pH on blood gases. Her headache went away. She has a history of migraines, history of morbid obesity. Nathalia stahl has always had normal noninvasive heart testing including about a year ago nuclear stress test and echo were normal. Since being here in the hospital, an echocardiogram was done, which shows no signi ficant finding. Certainly nothing that would be consistent with a recent myocardial infarction. Tro ponins were drawn, even though the patient was not having chest pain and 3 troponins are all abnormal . They are all virtually the same 0.16, 0.17, 0.15, drawn over nearly a 12 hour. The patient is not having chest pain or shortness of breath. She is morbidly obese. Probably has sleep hypoventilatio n syndrome or sleep apnea. Medications: Outpatient medications have been paroxetine, lisinopril, amlodipine, carvedilol, and as pirin. She has underlying hypertension and depression. Physical Examination: General: 5 feet 2, 293 pounds. HEENT: Normal. Lungs: No crackles or wheezes. Heart: Within normal limits. Laboratory Data: An arterial blood gas showed initially a pCO2 of 71, the more recent one is 56.5; h er pH went from 7.3 to 7.4. The electrocardiogram shows nonspecific T-wave abnormality. Impression And Plan: The patient's symptoms and blood test changes are all due to her hypoventilatio n respiratory acidosis. This does not seem to be an acute coronary syndrome and the troponins seem t o be elevated because of the hypercapnia. Her echocardiogram did not lend itself to us measuring her pulmonary artery pressure, but I would suspect she has some pulmonary hypertension. Dr. Worley has been her usual drugless physician. He would be glad to see her in the office in the next week or so. I d o not think we need to keep her over the weekend to do a cardiac catheterization. I think this is qu ite clearly not an acute coronary syndrome. SH/MODL Voice ID: [id number] Report ID: [id number]
== END 2019-03-11 15:15 | disposition home or self-care (01) | DRG 291 ==
LOC: ER 21:18 → ERHOLD 03-10 01:53 → 2ND 03-10 03:16
PROVIDERS: ADMIT Internal Medicine; ATTEND Internal Medicine
PROC: 5A09457 Assistance with Respiratory Ventilation, 24-96 Consecutive Hours, Continuous Positive Airway Pressure (ICD-10-PCS; principal; 2019-03-10)
DX: I50.31 Acute diastolic (congestive) heart failure (principal); J96.01 Acute respiratory failure with hypoxia; J96.02 Acute respiratory failure with hypercapnia; E87.2 Acidosis; Z68.43 Body mass index [BMI] 50.0-59.9, adult; J81.0 Acute pulmonary edema; I11.0 Hypertensive heart disease with heart failure; E66.01 Morbid (severe) obesity due to excess calories; R51 Headache; I25.2 Old myocardial infarction
CPT/HCPCS: 36415; 71045; 71046; 80048; 80061; 82805; 83735; 83880; 84100; 84484; 85025; 90471; 93005; 93306; 94640; 94660; 94760; 99285; J0696; J1200; J1650; J1940; J2765; J7030; Q2035

== ENCOUNTER 2019-04-03 10:20 | Emergency (ER) | payer SELFPAY ==
--- OUTSIDE RECORDS SUMMARY | 2019-04-03 10:22 | XMS REPORT ---
:1970 [facility] Address [address] [place] [address] Dr. Hollingsworth [address] [place] [id number] Care Team Providers Name Role Phone Unavailable Unavailable Unavailable Payers Payer Name Policy Type Policy Number Effective Date Expiration Date Problems This patient has no known problems. Allergies, Adverse Reactions, Alerts This patient has no known allergies or adverse reactions. Medications This patient has no known medications.
[2019-04-03] MEDS ORDERED: IBUPROFEN 400 MG TAB ONE (11:17)
--- NOTE | 2019-04-03 11:47 | RAD REPORT ---
EXAM DESCRIPTION: RAD - Ankle Right 3 View - 04/03/2019 11:23 am CLINICAL HISTORY: Trip and fall, ankle pain COMPARISON: September 2012 FINDINGS: No fracture, dislocation or periosteal reaction. No joint effusion seen. No joint space na rrowing. Lateral soft tissue swelling is present. Patient has small Achilles spur and moderate size plantar sp ur. IMPRESSION: Soft tissue swelling with no right ankle fracture.
--- NOTE | 2019-04-03 11:48 | RAD REPORT ---
EXAM DESCRIPTION: RAD - Foot Right 3 View - 04/03/2019 11:23 am CLINICAL HISTORY: PAINtrip and fall, right foot pain COMPARISON: No comparisonsNone. FINDINGS: No fracture, dislocation or periosteal reaction. No acute or destructive bone process. Patience ntar and Achilles spurs are present. No air or foreign body in the soft tissues. IMPRESSION: Negative right foot examination for acute finding.
--- NOTE | 2019-04-03 12:08 | ER ---
Nurse's Notes [facility] Name: Deyvi Avendano Age: 48 yrs Sex: Female : 1970 Arrival Date: 04/03/2019 Time: 10:22 Bed 13 Private MD: Diagnosis: Pain in right ankle and joints of right foot Presentation: 04/03 10:45 Presenting complaint: Patient states: I fell from standing position on Thursday, having sg pain in the right calf and right ankle that worsens with walking. Transition of care: patient was not received from another setting of care. Onset of symptoms was April 03, 2019. Risk Assessment: Do you want to hurt yourself or someone else? Patient reports no desire to harm self or others. Initial Sepsis Screen: Does the patient meet any 2 criteria? No. Patient's initial sepsis screen is negative. Does the patient have a suspected source of infection? No. Patient's initial sepsis screen is negative. Care prior to arrival: None. 10:45 Method Of Arrival: Ambulatory sg 10:45 Acuity: KENYETTA 4 sg Historical: - Allergies: 10:48 Morphine; sg - PMHx: 10:48 Hypertension; sg - Immunization history:: Adult Immunizations. - Coronavirus screen:: The patient has NOT traveled to [place], [place], or [place] in the past 14 days. The patient has NOT had contact with known/suspected case of Coronavirus?. - Social history:: Smoking status: Patient denies any tobacco usage or history of. - Ebola Screening: : Patient negative for fever greater than or equal to 101.5 degrees Fahrenheit, and additional compatible Ebola Virus Disease symptoms Patient denies exposure to infectious person Patient denies travel to an Ebola-affected area in the 21 days before illness onset No symptoms or risks identified at this time. Screenin:35 Abuse screen: Denies threats or abuse. Denies injuries from another. Nutritional sg screening: No deficits noted. Tuberculosis screening: No symptoms or risk factors identified. Never had TB. Fall Risk None identified. Assessment: 10:47 General: Appears in no apparent distress. well groomed, well developed, well nourished, sg Behavior is calm, cooperative, appropriate for age. Pain: Complains of pain in right ankle Quality of pain is described as throbbing, Aggravated by weight bearing. Neuro: Level of Consciousness is awake, alert, obeys commands, Oriented to person, place, time, [address] [employer] are equal bilaterally. Cardiovascular: Heart tones S1 S2 present. Respiratory: Airway is patent Respiratory effort is even, unlabored, Respiratory pattern is regular, symmetrical. GI: No signs and/or symptoms were reported involving the gastrointestinal system. : No signs and/or symptoms were reported regarding the genitourinary system. EENT: No signs and/or symptoms were reported regarding the EENT system. Derm: Skin is pink, warm \T\ dry. Musculoskeletal: Circulation, motion, and sensation intact. Range of motion: intact in all extremities. Vital Signs: 10:47 BP 118 / 79; Pulse 62; Resp 17; Temp 97.7; Pulse Ox 95% on R/A; sg 12:30 BP 120 / 77; Pulse 66; Resp 17; Temp 97.7; Pulse Ox 99% on R/A; sg ED Course: 10:22 Patient arrived in ED. mr 10:42 Feliberto Ruiz PA is PHCP. cp 10:42 Feliberto Albert MD is Attending Physician. cp 10:45 Ivan Gongora, BONIFACIO is Primary Nurse. sg 10:46 Triage completed. sg 10:46 Arm band placed on. sg 11:24 XRAY Foot RIGHT 3 View In Process Unspecified. EDMS 11:24 XRAY Ankle RIGHT 3 view In Process Unspecified. EDMS 12:28 Pérez wrap to right ankle Air stirrup applied to right ankle. Pedal pulse present and jb1 within normal limits before and after application of pérez wrap and splint. Capillary refill was two seconds before and after application of préez wrap and splint. 12:30 Patient has correct armband on for positive identification. Bed in low position. Call sg light in reach. Side rails up X2. Pulse ox on. NIBP on. 12:37 No provider procedures requiring assistance completed. Patient did not have IV access ss during this emergency room visit. Administered Medications: 11:10 Drug: Ibuprofen 800 mg Route: PO; sg 11:50 Follow up: Response: No adverse reaction sg Outcome: 12:07 Discharge ordered by . cp 12:37 Discharged to home with crutches. ss 12:37 Condition: good 12:37 Discharge instructions given to patient, Instructed on discharge instructions, follow up and referral plans. medication usage, Demonstrated understanding of instructions, follow-up care, medications, Prescriptions given X 1. 12:37 Patient left the ED. ss Signatures: Dispatcher [employer] EDMS Yao Ríos jb1 Ivan Gongora RN RN sg Lara Cabrera Shelby, RN RN ss Feliberto Ruiz, QUINTIN RIBEIRO cp
--- NOTE | 2019-04-03 12:08 | EDPHYS ---
Physician Documentation [facility] Name: Deyvi Avendano Age: 48 yrs Sex: Female : 1970 Arrival Date: 04/03/2019 Time: 10:22 Bed 13 Private MD: XAVIER Physician Feliberto Albert HPI: 04/03 10:55 This 48 yrs old Female presents to ER via Ambulatory with complaints of Foot cp Pain. 10:55 The patient presents with an injury, pain, that is acute, swelling, tenderness. The cp complaints affect the right ankle, lateral aspect of right foot and dorsum of right foot. 10:55 Context: resulted from the patient falling, the patient can fully bear weight, the cp patient is able to ambulate, with mild difficulty. Onset: The symptoms/episode began/occurred 2 day(s) ago. 10:55 Treatment prior to arrival includes: no previous treatment. cp Historical: - Allergies: 10:48 Morphine; sg - PMHx: 10:48 Hypertension; sg - Immunization history:: Adult Immunizations. - Coronavirus screen:: The patient has NOT traveled to [place], [place], or [place] in the past 14 days. The patient has NOT had contact with known/suspected case of Coronavirus?. - Social history:: Smoking status: Patient denies any tobacco usage or history of. - Ebola Screening: : Patient negative for fever greater than or equal to 101.5 degrees Fahrenheit, and additional compatible Ebola Virus Disease symptoms Patient denies exposure to infectious person Patient denies travel to an Ebola-affected area in the 21 days before illness onset No symptoms or risks identified at this time. ROS: 11:00 Constitutional: Negative for body aches, chills, fever, poor PO intake. cp 11:00 Cardiovascular: Negative for chest pain. cp 11:00 Respiratory: Negative for cough, shortness of breath, wheezing. 11:00 Abdomen/GI: Negative for abdominal pain. 11:00 MS/extremity: Positive for pain, tenderness, of the dorsum of right foot and lateral aspect of right foot and right ankle, Negative for decreased range of motion, deformity, paresthesias. 11:00 All other systems are negative. Exam: 11:10 Constitutional: The patient appears in no acute distress, alert, awake, non-toxic, well cp developed, well nourished, obese. 11:10 Musculoskeletal/extremity: Extremities: grossly normal except: noted in the lateral cp aspect of right foot and right ankle and dorsum of right foot: pain, swelling, tenderness, There is no evidence of deformity, Perfusion: the extremity is normally perfused throughout, Sensation intact. Weight bearing: able to fully bear weight, Achilles tendon intact, no pain palpated at proximal right fibula. 11:10 Skin: no rash present. Vital Signs: 10:47 BP 118 / 79; Pulse 62; Resp 17; Temp 97.7; Pulse Ox 95% on R/A; sg 12:30 BP 120 / 77; Pulse 66; Resp 17; Temp 97.7; Pulse Ox 99% on R/A; sg MDM: 10:42 Patient medically screened. cp 10:42 Patient medically screened. [facility] 12:07 Data reviewed: vital signs, nurses notes, radiologic studies, plain films, and as a cp result, I will discharge patient. 12:07 Differential diagnosis: dislocation, closed fracture, sprain. Counseling: I had a cp detailed discussion with the patient and/or guardian regarding: the historical points, exam findings, and any diagnostic results supporting the discharge/admit diagnosis, radiology results, to return to the emergency department if symptoms worsen or persist or if there are any questions or concerns that arise at home. 04/03 10:54 Order name: XRAY Foot RIGHT 3 View 04/03 10:54 Order name: XRAY Ankle RIGHT 3 view 04/03 12:06 Order name: Crutches; Complete Time: 12:30 cp 04/03 12:06 Order name: Pérez Wrap; Complete Time: 12:30 04/03 12:06 Order name: Aircast Ankle Splint; Complete Time: 12:30 cp Administered Medications: 11:10 Drug: Ibuprofen 800 mg Route: PO; sg 11:50 Follow up: Response: No adverse reaction sg Disposition: 12:45 Chart complete. cp Disposition: 04/03/19 12:07 Discharged to Home. Impression: Pain in right ankle and joints of right foot. - Condition is Stable. - Discharge Instructions: Elastic Bandage and RICE, Foot Sprain, Ankle Pain. - Prescriptions for Naprosyn 500 mg Oral Tablet - take 1 tablet by ORAL route 2 times per day take with food; 20 tablet. - Medication Reconciliation Form, Thank You Letter, Antibiotic Education, Prescription Opioid Use form. - Follow up: Private Physician; When: 5 - 6 days; Reason: Recheck today's complaints. - Problem is new. - Symptoms have improved. Addendum: 04/04/2019 16:45 Co-signature as Attending Physician, Feliberto Albert MD I agree with the assessment and c thapa plan of care. Signatures: Dispatcher [employer] EDIvan Bernal RN RN Feliberto Albert MD MD cha Smirch, Shelby, RN RN ss Feliberto Ruiz PA PA cp Corrections: (The following items were deleted from the chart) 04/03 12:37 12:07 04/03/2019 12:07 Discharged to Home. Impression: Pain in right ankle and joints ss of right foot. Condition is Stable. Forms are Medication Reconciliation Form, Thank You Letter, Antibiotic Education, Prescription Opioid Use. Follow up: Private Physician; When: 5 - 6 days; Reason: Recheck today's complaints. Problem is new. Symptoms have improved. cp
[2019-04-03 12:50] VITALS: TEMP 97.7
[2019-04-03 12:57] VITALS: O2SAT 99
[2019-04-03 12:59] VITALS: BP 156/71
== END 2019-04-03 12:37 | disposition home or self-care (01) ==
LOC: ER 10:20
DX: M25.571 Pain in right ankle and joints of right foot (principal); I10 Essential (primary) hypertension; Z88.5 Allergy status to narcotic agent
CPT/HCPCS: 99284

== ENCOUNTER 2019-05-03 19:38 | Emergency (ER) | payer SELFPAY ==
--- OUTSIDE RECORDS SUMMARY | 2019-05-03 19:41 | XMS REPORT ---
:1970 [facility] Address [address] [place] [address] Dr. Hollingsworth [address] [place] [id number] Care Team Providers Name Role Phone Unavailable Unavailable Unavailable Payers Payer Name Policy Type Policy Number Effective Date Expiration Date Problems This patient has no known problems. Allergies, Adverse Reactions, Alerts This patient has no known allergies or adverse reactions. Medications This patient has no known medications.
--- NOTE | 2019-05-03 20:37 | RAD REPORT ---
EXAM DESCRIPTION: RAD - Foot Right 3 View - 05/03/2019 8:16 pm CLINICAL HISTORY: Right foot pain status post injury FINDINGS: No fracture or dislocation is seen Osteoporosis. Large plantar calcaneal spur
--- NOTE | 2019-05-03 20:37 | RAD REPORT ---
EXAM DESCRIPTION: RAD - Knee Left 2 View - 05/03/2019 8:16 pm CLINICAL HISTORY: Left knee pain status post injury FINDINGS: No fracture or dislocation is seen. Limited two view series obtained. Knee prosthesis is in good position
--- NOTE | 2019-05-03 20:48 | EDPHYS ---
Physician Documentation [facility] Name: Deyvi Avendano Age: 48 yrs Sex: Female : 1970 Arrival Date: 05/03/2019 Time: 19:42 Bed 17 Private MD: ED Physician Luis Alberto Croft HPI: 05/02 20:18 This 48 yrs old Female presents to ER via Wheelchair with complaints of Fall rn Injury, Knee Pain. 20:18 Details of fall: The patient fell from an upright position. Onset: The symptoms/episode rn began/occurred just prior to arrival. Associated injuries: The patient sustained left knee, right heel. Severity of symptoms: At their worst the symptoms were mild, in the emergency department the symptoms are unchanged. The patient has experienced similar episodes in the past. The patient has not recently seen a physician. Reports tripped over hole, has done it before, reports left knee pain and right heel pain. Hit chin but denies pain, no loc or seizure, remembers all events, not on blood thinners. . [employer]: 20:18 LMP 04/2019 Historical: - Allergies: 20:13 Morphine; wh - Home Meds: 20:13 amlodipine 10 mg tab 1 tab once daily [Active]; Coreg 3.125 mg Oral tab 1 tab 2 times wh per day [Active]; - PMHx: 20:13 Hypertension; wh - PSHx: 20:13 ; Cholecystectomy; Knee surgery; wh - Immunization history:: Adult Immunizations up to date. - Social history:: Smoking status: Patient/guardian denies using. - Family history:: not pertinent. - Hospitalizations: : No recent hospitalization is reported. ROS: 20:18 Eyes: Negative for injury, pain, redness, and discharge, Neck: Negative for injury, rn pain, and swelling, Cardiovascular: Negative for chest pain, palpitations, and edema, Respiratory: Negative for shortness of breath, cough, wheezing, and pleuritic chest pain, Abdomen/GI: Negative for abdominal pain, nausea, vomiting, diarrhea, and constipation, Back: Negative for injury and pain, MS/Extremity: + right heel pain, left kne epain Skin: + abrasion to left knee Neuro: Negative for headache, weakness, numbness, tingling, and seizure. Exam: 20:18 Constitutional: This is a well developed, well nourished patient who is awake, alert, rn and in no acute distress. Head/Face: Normocephalic, small abrasion to chin, no laceratio nor deformity. Eyes: Pupils equal round and reactive to light, extra-ocular motions intact. Periorbital areas with no swelling, redness, or edema. MS/ Extremity: Pulses equal, no cyanosis. Neurovascular intact. + mild tenderness left knee with anterior abrasion, no laceration or bleeding, no focal tenderness. + mild tenderness right heel. No gross deformity. Neuro: Awake and alert, GCS 15, oriented to person, place, time, and situation. Cranial nerves II-XII grossly intact. Motor strength 5/5 in all extremities. Sensory grossly intact. Cerebellar exam normal. Antalgic gait. Vital Signs: 20:00 BP 162 / 80; Pulse 90; Resp 18; Temp 98.4; Pulse Ox 95% ; Weight 122.47 kg; Height 5 wh ft. 2 in. (157.48 cm); Pain 9/10; 21:00 BP 168 / 98; Pulse 81; Resp 18; Pulse Ox 94% on R/A; jv1 20:00 Body Mass Index 49.38 (122.47 kg, 157.48 cm) wh MDM: 19:57 Patient medically screened. rn 20:47 Differential diagnosis: contusion, fracture, sprain, strain. Data reviewed: vital rn signs, nurses notes, radiologic studies, plain films, and as a result, I will discharge patient. Counseling: I had a detailed discussion with the patient and/or guardian regarding: the historical points, exam findings, and any diagnostic results supporting the discharge/admit diagnosis, radiology results, the need for outpatient follow up, to return to the emergency department if symptoms worsen or persist or if there are any questions or concerns that arise at home. Special discussion: I discussed with the patient/guardian in detail that at this point there is no indication for admission to the hospital. It is understood, however, that if the symptoms persist or worsen the patient needs to return immediately for re-evaluation. 05/02 20:02 Order name: XRAY Foot RIGHT 3 View; Complete Time: 20:46 rn 05/02 20:16 Order name: Knee Left 2 View; Complete Time: 20:46 EDMS Administered Medications: No medications were administered Disposition: 05/03/19 20:48 Discharged to Home. Impression: Contusion of left knee, Contusion of right foot. - Condition is Stable. - Discharge Instructions: Contusion, Foot Contusion, Knee Pain. - Medication Reconciliation Form, Thank You Letter, Antibiotic Education, Prescription Opioid Use form. - Follow up: Private Physician; When: As needed; Reason: Recheck today's complaints, Re-evaluation by your physician. - Problem is new. - Symptoms have improved. Signatures: Dispatcher [employer] EDAL Luis Alberto Croft MD MD rn Habalo, Winsy wh Corrections: (The following items were deleted from the chart) 20:16 19:49 Knee Right 2 View+[email or web address].[email or web address] ordered. [facility] 20:20 20:18 Eyes: Negative for injury, pain, redness, and discharge, Neck: Negative for rn injury, pain, and swelling, Cardiovascular: Negative for chest pain, palpitations, and edema, Respiratory: Negative for shortness of breath, cough, wheezing, and pleuritic chest pain, Abdomen/GI: Negative for abdominal pain, nausea, vomiting, diarrhea, and constipation, Back: Negative for injury and pain, MS/Extremity: + right heel pain, left kne epain Skin: Negative for injury, rash, and discoloration, Neuro: Negative for headache, weakness, numbness, tingling, and seizure, rn 21:36 20:48 05/03/2019 20:48 Discharged to Home. Impression: Contusion of left knee; wh Contusion of right foot. Condition is Stable. Forms are Medication Reconciliation Form, Thank You Letter, Antibiotic Education, Prescription Opioid Use. Follow up: Private Physician; When: As needed; Reason: Recheck today's complaints, Re-evaluation by your physician. Problem is new. Symptoms have improved. rn
--- NOTE | 2019-05-03 20:48 | ER ---
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 Pt hit her head wh and knee but denies LOC. Pt now C/O pain in left knee and right heel. Coronavirus screen: The patient has NOT traveled to [place] in the past 14 days. Ebola Screen: Patient negative for fever greater than or equal to 101.5 degrees Fahrenheit, and additional compatible Ebola Virus Disease symptoms Patient denies exposure to infectious person. Initial Sepsis Screen: Does the patient meet any 2 criteria? No. Patient's initial sepsis screen is negative. Does the patient have a suspected source of infection? No. Patient's initial sepsis screen is negative. Risk Assessment: Do you want to hurt yourself or someone else? Patient reports no desire to harm self or others. 20:00 Method Of Arrival: Wheelchair 20:00 Acuity: KENYETTA 4 20:17 Onset of symptoms was May 03, 2019. KILN HAND: 20:18 [facility] 04/2019 Historical: - Allergies: 20:13 Morphine; - Home Meds: 20:13 amlodipine 10 mg tab 1 tab once daily [Active]; Coreg 3.125 mg Oral tab 1 tab 2 times wh per day [Active]; - PMHx: 20:13 Hypertension; - PSHx: 20:13 ; Cholecystectomy; Knee surgery; - Immunization history:: Adult Immunizations up to date. - Social history:: Smoking status: Patient/guardian denies using. - Family history:: not pertinent. - Hospitalizations: : No recent hospitalization is reported. Screenin:14 Abuse screen: Denies threats or abuse. Denies injuries from another. Nutritional screening: No deficits noted. Tuberculosis screening: No symptoms or risk factors identified. Fall Risk None identified. Assessment: 20:14 General: Appears in no apparent distress. Behavior is calm, cooperative, appropriate for age. Pain: Complains of pain in left knee and right heel. Pain: Pain does not radiate. Pain currently is 9 out of 10 on a pain scale. Quality of pain is described as aching. Neuro: Level of Consciousness is awake, alert, obeys commands, Oriented to person, place, time, situation, Appropriate for age. Cardiovascular: Capillary refill < 3 seconds. Respiratory: Airway is patent Respiratory effort is even, unlabored, Respiratory pattern is regular, symmetrical. GI: Abdomen is flat, non-distended. : No signs and/or symptoms were reported regarding the genitourinary system. EENT: No signs and/or symptoms were reported regarding the EENT system. Derm: Skin is intact, is healthy with good turgor, Skin is pink, warm \T\ dry. normal. Musculoskeletal: Circulation, motion, and sensation intact. 21:34 Reassessment: Patient appears in no apparent distress at this time. No changes from jv1 previously documented assessment. Patient and/or family updated on plan of care and expected duration. Pain level reassessed. Patient is alert, oriented x 3, equal unlabored respirations, skin warm/dry/pink. Vital Signs: 20:00 BP 162 / 80; Pulse 90; Resp 18; Temp 98.4; Pulse Ox 95% ; Weight 122.47 kg; Height 5 wh ft. 2 in. (157.48 cm); Pain 9/10; 21:00 BP 168 / 98; Pulse 81; Resp 18; Pulse Ox 94% on R/A; jv1 20:00 Body Mass Index 49.38 (122.47 kg, 157.48 cm) ED Course: 19:42 Patient arrived in ED. jg7 19:56 Clint Miles is Primary Nurse. 19:57 Luis Alberto Crfot MD is Attending Physician. rn 20:11 Triage completed. 20:16 XRAY Foot RIGHT 3 View In Process Unspecified. EDMS 20:17 Knee Left 2 View In Process Unspecified. EDMS 20:17 Arm band placed on right wrist. 20:17 Patient has correct armband on for positive identification. Bed in low position. Call light in reach. Side rails up X 1. Pulse ox on. NIBP on. 20:17 No provider procedures requiring assistance completed. Patient did not have IV access during this emergency room visit. Administered Medications: No medications were administered Outcome: 20:48 Discharge ordered by . rn 21:35 Discharged to home ambulatory, with family. 21:35 Condition: stable 21:35 Discharge instructions given to patient, Instructed on discharge instructions, follow up and referral plans. POC Demonstrated understanding of instructions, follow-up care, POC 21:36 Patient left the ED. Signatures: Dispatcher [employer] EDMS Luis Alberto Croft MD MD rn Habalo, Winsy Mary Campbell RN RN jv1 Yvonne Tuttleg7
[2019-05-04 01:03] VITALS: TEMP 98.4
[2019-05-04 01:05] VITALS: BP 168/98; O2SAT 94
== END 2019-05-03 21:36 | disposition home or self-care (01) ==
LOC: ER 19:38
DX: S80.02XA Contusion of left knee, initial encounter (principal); S90.31XA Contusion of right foot, initial encounter; I10 Essential (primary) hypertension; W01.0XXA Fall on same level from slipping, tripping and stumbling without subsequent striking against object, initial encounter; Y93.01 Activity, walking, marching and hiking; Y92.9 Unspecified place or not applicable; Z88.5 Allergy status to narcotic agent
CPT/HCPCS: 99283

== ENCOUNTER 2019-06-30 20:29 | Emergency (ER) | payer SELFPAY ==
--- OUTSIDE RECORDS SUMMARY | 2019-06-30 20:31 | XMS REPORT ---
:1970 Author Organization [facility] t Address [address] [place] [address] [address] [place] [address] Care Team Providers Name Role Phone Unavailable Unavailable Unavailable Payers Payer Name Policy Type Policy Number Effective Date Expiration D ate Problems This patient has no known problems. Allergies, Adverse Reactions, Alerts This patient has no known allergies or adverse reactions. Medications This patient has no known medications.
--- NOTE | 2019-06-30 21:33 | ER ---
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 Left hand pain since. PMS intact. No head injury or LOC. Coronavirus screen: Proceed with normal triage. Patient denies a cough. Patient denies shortness of breath or difficulty breathing. Patient denies measured and/or subjective temperature greater than 100.4F prior to today's visit. Patient denies travel on a cruise ship or to a country the [facility]NOTE 3] currently lists as an affected area. Patient denies contact with known and/or suspected case of COVID-19. Ebola Screen: Patient denies travel to an Ebola-affected area in the 21 days before illness onset. Initial Sepsis Screen: Does the patient meet any 2 criteria? No. Patient's initial sepsis screen is negative. Does the patient have a suspected source of infection? No. Patient's initial sepsis screen is negative. Risk Assessment: Do you want to hurt yourself or someone else? Patient reports no desire to harm self or others. Onset of symptoms was June 30, 2019. 20:45 Method Of Arrival: Ambulatory ll1 20:45 Acuity: KENYETTA 4 ll1 Triage Assessment: 22:11 Injury Description: trip and fall. 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 - Social history:: Smoking status: Patient denies any tobacco usage or history of. Patient/guardian denies using alcohol, street drugs, IV drugs. Screenin:09 Abuse screen: Denies threats or abuse. Nutritional screening: No deficits noted. ll1 Tuberculosis screening: No symptoms or risk factors identified. Fall Risk Fall in past 12 months (25 points). No IV (0 pts). Total Gordon Fall Scale indicates Low Risk Score (25-44 pts). Fall prevention measures have been instituted. Side Rails Up X 2 Frequent Obs/Assesments occuring As available Patient and Family Educated on Fall Prevention Program and strategies. Assessment: 21:08 General: Appears in no apparent distress. Behavior is calm, cooperative. Pain: ll1 Complains of pain in left hand Quality of pain is described as aching, Pain began 2 hours ago. Neuro: No deficits noted. Cardiovascular: No deficits noted. Respiratory: No deficits noted. Musculoskeletal: Circulation, motion, and sensation intact. Capillary refill < 3 seconds, Range of motion: intact in all extremities, Tenderness present in left hand Reports pain in left hand. 21:50 Reassessment: Patient appears in no apparent distress at this time. No changes from 1 previously documented assessment. Patient and/or family updated on plan of care and expected duration. Pain level reassessed. Patient is alert, oriented x 3, equal unlabored respirations, skin warm/dry/pink. Vital Signs: 20:45 BP 169 / 99; Pulse 87; Resp 18; Temp 99.1; Pulse Ox 95% ; Pain 7/10; ll1 ED Course: 20:31 Patient arrived in ED. cl3 20:31 Delroy Will MD is Attending Physician. kdr 20:47 Triage completed. ll1 20:48 Arm band placed on Patient placed in an exam room, on a stretcher. ll1 21:05 Varghese Atkinson, BONIFACIO is Primary Nurse. ll1 21:10 Patient has correct armband on for positive identification. Bed in low position. Call ll1 light in reach. Side rails up X 1. 21:16 Hand Left 3 View XRAY In Process Unspecified. EDMS 21:31 Primary Nurse role handed off by Varghese Atkinson, BONIFACIO sg 21:31 Ivan Gongora, BONIFACIO is Primary Nurse. sg 21:45 Velcro wrist splint applied to left wrist. PMS intact pre and post splint application. ll1 Tolerated splint well. 21:45 Patient did not have IV access during this emergency room visit. ll1 22:13 No provider procedures requiring assistance completed. ll1 Administered Medications: No medications were administered Outcome: 21:33 Discharge ordered by . kdr 21:53 Patient left the ED. ll1 21:54 Discharged to home ambulatory. ll1 21:54 Condition: stable 21:54 Discharge instructions given to patient, Instructed on discharge instructions, follow up and referral plans. medication usage, Demonstrated understanding of instructions, follow-up care, medications, splint care, Prescriptions given X 1. Signatures: Dispatcher [employer] EDMS Ivan Gongora RN RN Delroy Will MD MD kdr Lewis, Charde 3 Varghese Atkinson RN RN ll1 Corrections: (The following items were deleted from the chart) 22:12 22:11 Velcro wrist splint applied to left wrist. ll1 ll1
--- NOTE | 2019-06-30 21:33 | EDPHYS ---
Physician Documentation [facility] Name: Deyvi Avendano Age: 49 yrs Sex: Female : 1970 Arrival Date: 06/30/2019 Time: 20:31 Bed 11 Private MD: ED Physician Delroy Will HPI: 06/29 20:55 This 49 yrs old Female presents to ER via Ambulatory with complaints of Hand kdr Injury. 20:55 The patient or guardian reports decreased range of motion, injury, pain, swelling, kdr tenderness. The complaints affect the left hand diffusely. Context: The problem was sustained at home, resulted from a fall, while walking. Onset: The symptoms/episode began/occurred suddenly, just prior to arrival. Modifying factors: The symptoms are alleviated by nothing, the symptoms are aggravated by movement. Associated signs and symptoms: The patient has no apparent associated signs or symptoms. Severity of symptoms: At their worst the symptoms were mild, in the emergency department the symptoms are unchanged. The patient has not experienced similar symptoms in the past. The patient has not recently seen a physician. 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 - Social history:: Smoking status: Patient denies any tobacco usage or history of. Patient/guardian denies using alcohol, street drugs, IV drugs. ROS: 20:55 Constitutional: Negative for fever, chills, and weight loss, Eyes: Negative for injury, kdr pain, redness, and discharge, Neck: Negative for injury, pain, and swelling, Cardiovascular: Negative for chest pain, palpitations, and edema, Respiratory: Negative for shortness of breath, cough, wheezing, and pleuritic chest pain, Abdomen/GI: Negative for abdominal pain, nausea, vomiting, diarrhea, and constipation, Back: Negative for injury and pain, : Negative for injury, bleeding, discharge, and swelling, Skin: Negative for injury, rash, and discoloration, Neuro: Negative for headache, weakness, numbness, tingling, and seizure activity. Psych: Negative for depression, anxiety, suicide ideation, homicidal ideation, and hallucinations. 20:55 MS/extremity: Positive for contusion, decreased range of motion, pain, swelling, tenderness, of the medial aspect of left hand, dorsal aspect of proximal phalanx of left ring finger, dorsal aspect of proximal phalanx of left little finger and dorsum of left hand. Exam: 20:55 Constitutional: This is a well developed, well nourished patient who is awake, alert, kdr and in no acute distress. Head/Face: Normocephalic, atraumatic. Eyes: Pupils equal round and reactive to light, extra-ocular motions intact. Lids and lashes normal. Conjunctiva and sclera are non-icteric and not injected. Cornea within normal limits. Periorbital areas with no swelling, redness, or edema. Neck: Trachea midline, no thyromegaly or masses palpated, and no cervical lymphadenopathy. Supple, full range of motion without nuchal rigidity, or vertebral point tenderness. No Meningismus. Chest/axilla: Normal chest wall appearance and motion. Nontender with no deformity. No lesions are appreciated. Cardiovascular: Regular rate and rhythm with a normal S1 and S2. No gallops, murmurs, or rubs. Normal PMI, no JVD. No pulse deficits. Respiratory: Lungs have equal breath sounds bilaterally, clear to auscultation and percussion. No rales, rhonchi or wheezes noted. No increased work of breathing, no retractions or nasal flaring. Abdomen/GI: Soft, non-tender, with normal bowel sounds. No distension or tympany. No guarding or rebound. No evidence of tenderness throughout. Back: No spinal tenderness. No costovertebral tenderness. Full range of motion. Neuro: Awake and alert, GCS 15, oriented to person, place, time, and situation. Cranial nerves II-XII grossly intact. Motor strength 5/5 in all extremities. Sensory grossly intact. Cerebellar exam normal. Normal gait. Psych: Awake, alert, with orientation to person, place and time. Behavior, mood, and affect are within normal limits. 20:55 Musculoskeletal/extremity: Extremities: grossly normal except: noted in the medial aspect of left hand, dorsal aspect of proximal phalanx of left ring finger, dorsal aspect of proximal phalanx of left little finger, dorsum of left hand and inner aspect of left palm: Vital Signs: 20:45 BP 169 / 99; Pulse 87; Resp 18; Temp 99.1; Pulse Ox 95% ; Pain 7/10; ll1 MDM: 20:55 Data reviewed: vital signs, nurses notes, radiologic studies. Counseling: I had a kdr detailed discussion with the patient and/or guardian regarding: the historical points, exam findings, and any diagnostic results supporting the discharge/admit diagnosis, radiology results, the need for outpatient follow up. 21:33 Patient medically screened. kdr 06/29 20:55 Order name: Hand Left 3 View XRAY kdr 06/29 21:32 Order name: Splint - Volar Wrist Splint; Complete Time: 22:14 kdr Administered Medications: No medications were administered Disposition: 06/30/19 21:33 Discharged to Home. Impression: Other specified sprain of left wrist, Sprain of other part of left wrist and hand. - Condition is Stable. - Discharge Instructions: Wrist Pain, [id number], Hand Pain. - Prescriptions for Ibuprofen 600 mg Oral Tablet - take 1 tablet by ORAL route every 6 hours As needed take with food; 30 tablet. - Medication Reconciliation Form, Thank You Letter form. - Follow up: Private Physician; When: 2 - 3 days; Reason: If symptoms return, Further diagnostic work-up, Recheck today's complaints, Continuance of care, Re-evaluation by your physician. - Problem is new. - Symptoms have improved. Signatures: Dispatcher [employer] EDKS Delroy Will MD MD kdr Varghese Atkinson RN RN ll1 Corrections: (The following items were deleted from the chart) 21:53 21:33 06/30/2019 21:33 Discharged to Home. Impression: Other specified sprain of left ll1 wrist; Sprain of other part of left wrist and hand. Condition is Stable. Forms are Medication Reconciliation Form, Thank You Letter, Antibiotic Education, Prescription Opioid Use. Follow up: Private Physician; When: 2 - 3 days; Reason: If symptoms return, Further diagnostic work-up, Recheck today's complaints, Continuance of care, Re-evaluation by your physician. Problem is new. Symptoms have improved. kdr
--- NOTE | 2019-06-30 21:56 | RAD REPORT ---
EXAM DESCRIPTION: RAD - Hand Left 3 View - 06/30/2019 9:15 pm CLINICAL HISTORY: PAIN COMPARISON: No comparisons FINDINGS: No acute fracture or dislocation is seen.
[2019-06-30 22:23] VITALS: BP 169/99; TEMP 99.1; O2SAT 95
== END 2019-06-30 21:53 | disposition home or self-care (01) ==
LOC: ER 20:29
DX: S63.592A Other specified sprain of left wrist, initial encounter (principal); S63.8X2A Sprain of other part of left wrist and hand, initial encounter; I10 Essential (primary) hypertension; Z88.5 Allergy status to narcotic agent; Z91.030 Bee allergy status; Z91.048 Other nonmedicinal substance allergy status
CPT/HCPCS: 99283

== ENCOUNTER 2020-04-10 18:34 | Emergency (ER) | payer SELFPAY ==
[2020-04-10] MEDS ORDERED: HYDROCODONE/APAP 5/325 MG TAB ONE (19:44)
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
[2020-04-10 20:42] VITALS: BP 186/99; TEMP 97.9; O2SAT 98
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
== END 2020-04-10 20:19 | disposition home or self-care (01) ==
LOC: ER 18:34
DX: S63.502A Unspecified sprain of left wrist, initial encounter (principal); I10 Essential (primary) hypertension; Z88.5 Allergy status to narcotic agent; Z91.030 Bee allergy status; Z91.048 Other nonmedicinal substance allergy status
CPT/HCPCS: 99283

== ENCOUNTER 2021-01-01 19:24 | Emergency (ER) | payer SELFPAY ==
--- NOTE | 2021-01-01 21:15 | RAD REPORT ---
EXAM DESCRIPTION: RAD - Hand Left 3 View - 01/01/2021 8:50 pm CLINICAL HISTORY: PAIN COMPARISON: Hand Left 3 View dated 06/30/2019 FINDINGS: The fourth finger demonstrates flexion at the PIP joint, limiting the quality of the study . Grossly, no fracture or dislocation is seen.
--- NOTE | 2021-01-01 21:28 | EDPHYS ---
Physician Documentation [facility] Name: Deyvi Avendano Age: 50 yrs Sex: Female : 1970 Arrival Date: 01/01/2021 Time: 19:34 Bed 13 Private MD: ED Physician Jony Calhoun HPI: 01/01 21:12 This 50 yrs old Female presents to ER via Ambulatory with complaints of Hand kb Injury. 21:12 The patient or guardian reports decreased range of motion, pain, tenderness. The kb complaints affect the palm of left hand. Context: The problem was sustained at home, resulted from a fall. Onset: The symptoms/episode began/occurred today. Modifying factors: The symptoms are alleviated by nothing, the symptoms are aggravated by movement. Associated signs and symptoms: The patient has no apparent associated signs or symptoms. Severity of symptoms: At their worst the symptoms were mild, moderate, in the emergency department the symptoms are unchanged. The patient has not experienced similar symptoms in the past. The patient has not recently seen a physician. 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 - Social history:: Smoking status: Patient denies any tobacco usage or history of. Patient uses alcohol, occasionally. ROS: 21:11 Constitutional: Negative for fever, chills, and weight loss. kb 21:11 MS/extremity: Positive for pain, of the palm of left hand. 21:11 All other systems are negative. Exam: 21:12 Constitutional: This is a well developed, well nourished patient who is awake, alert, kb and in no acute distress. Head/Face: Normocephalic, atraumatic. ENT: Moist Mucous membranes Respiratory: Respirations even and unlabored. No increased work of breathing, no retractions or nasal flaring. Skin: Warm, dry with normal turgor. Normal color. Neuro: Awake and alert, GCS 15, oriented to person, place, time, and situation. Moves all extremities. Normal gait. Psych: Awake, alert, with orientation to person, place and time. Behavior, mood, and affect are within normal limits. 21:12 Musculoskeletal/extremity: Extremities: grossly normal except: noted in the palm of left hand: pain, ROM: limited active range of motion due to pain, in the left hand, Circulation is intact in all extremities. Sensation intact. Vital Signs: 19:50 BP 180 / 83; Pulse 95; Resp 18; Temp 97.9(TE); Pulse Ox 97% on R/A; Weight 136.08 kg; ld1 Height 5 ft. 2 in. (157.48 cm); Pain 7/10; 20:30 BP 162 / 95; Pulse 86; Resp 18; Pulse Ox 95% on R/A; Pain 10/10; dc2 21:15 BP 147 / 89; Pulse 79; Resp 18; Temp 97.6(O); Pulse Ox 99% on R/A; Pain 9/10; dc2 19:50 Body Mass Index 54.87 (136.08 kg, 157.48 cm) ld1 MDM: 20:27 Patient medically screened. 21:11 Data reviewed: vital signs, nurses notes. Data interpreted: Pulse oximetry: on room air kb is 95 %. Interpretation: normal. 21:26 Counseling: I had a detailed discussion with the patient and/or guardian regarding: the kb historical points, exam findings, and any diagnostic results supporting the discharge/admit diagnosis, radiology results, the need for outpatient follow up, a orthopedic surgeon, to return to the emergency department if symptoms worsen or persist or if there are any questions or concerns that arise at home. 01/01 20:32 Order name: Hand Left 3 View XRAY; Complete Time: 21:20 kb Administered Medications: 21:32 Drug: HYDROcodone-acetaminophen 5 mg-325 mg 1 tabs Route: PO; dc2 21:37 Follow up: Response: Medication administered at discharge. dc2 Disposition: 23:22 Co-signature as Attending Physician, Jony Calhoun MD. 7 Disposition Summary: 01/01/21 21:27 Discharge Ordered Location: Home kb Condition: Stable kb Diagnosis - Pain in left hand kb Followup: kb - With: Emergency Department - When: As needed - Reason: Worsening of condition Followup: kb - With: Private Physician - When: 2 - 3 days - Reason: Recheck today's complaints, Continuance of care, Re-evaluation by your physician Discharge Instructions: - Discharge Summary Sheet kb - Musculoskeletal Pain kb - Hand Pain kb Forms: - Medication Reconciliation Form kb - Thank You Letter kb - Antibiotic Education kb - Prescription Opioid Use kb Prescriptions: - Diclofenac Sodium 75 mg Oral tablet,delayed release (DR/EC) - take 1 tablet by ORAL route 2 times per day As needed; 30 tablet; Refills: 0, kb Product Selection Permitted Signatures: Dispatcher [employer] EDMS Dominique Stewart, CHILD CARE ASSOCIATE-C CHILD CARE ASSOCIATE-Jony Couch MD MD mh7 Annabella Garay RN RN ld1 Radha Ghosh RN RN dc2
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
[2021-01-01] MEDS ORDERED: HYDROCODONE/APAP 5/325 MG TAB ONE (21:31)
[2021-01-01 21:46] VITALS: TEMP 97.9
[2021-01-01 21:48] VITALS: BP 162/95; O2SAT 95
--- OUTSIDE RECORDS SUMMARY | 2021-01-12 08:32 | XMS REPORT | Continuity of Care Document ---
:1970 Author Organization [facility] t Address [address] [place] [id number] Care Team Providers Name Role Phone Araceli Eubanks Primary Care Physician Fozia Burris Attending Clinician Edie FITZGERALD Attending Clinician Unavailable Payers Payer Name Policy Type Policy Number Effective Date Expiration Date [facility] [id number] 2018 PPO 00:00:00 Problems Condition Condition Condition Status Onset Resolution Last Treating Co mments Source Name Details Category Date Date Treatment Clinician Date Elevated Elevated Disease Active Unive rs brain brain 6-12 ity [place] peptide c peptide 00 Med[place] alda (BNP) (BNP) Branch level level Essential Essential Disease Active Uni vers hypertensi hypertensi 6-12 it y of on on 00:00: [address] Branch Pulmonary Pulmonary Disease Active Uni vers hypertensi hypertensi 6-12 it y of on on 00:: [address] Branch Chronic Chronic Disease Active Univers diastolic diastolic 6-12 ity of heart heart 00:00: [place] failure failure 00 Medical Branch Hypertensi Hypertensi Disease Active U nivers ve heart ve heart 6-12 ity of disease disease 00:00: [place] with with 00 Medical chronic chronic Branch diastolic diastolic congestive congestive heart heart failure failure Hypoxia Hypoxia Disease Active Univers 6-10 ity of 00:00: [place] 00 Medical Branch Morbid Morbid Disease Active Univers obesity obesity 4-30 [place] of with body with body [place] mass index mass index 00 Me dical of of Branch 40.0-49.9 40.0-49.9 Total knee Total knee Disease Active U nivers replacemen replacemen 4-30 it y of t status t status 00:00: [place] 00 Medical Branch Left knee Left knee Disease Active 2015-03 Uni vers pain pain 1-29 ity of 00:00: [place] [facility] Wrist Wrist Disease Active Univers pain, left pain, left 3-14 it y of 00:00: [place] 00 Medical Branch Allergies, Adverse Reactions, Alerts Allergy Allergy Status Severity Reaction(s) Onset Inactive Treating Comm ents Source Name Type Date Date Clinician MORPHINE DRUG Active Hives 2015-03 Univers INGREDI 0-27 ity of 00:00: [place] 00 Medical Branch Morphine Propensi Active Swelling 2015-03 Univ ers ty to 0-27 ity of adverse 00:00: [place] reaction 00 Medical s Branch Social History Social Habit Start Date Stop Date Quantity Comments Source Exposure to Not sure [facility] SARS-CoV-2 (event) Medica l Branch Alcohol intake 2020-08-10 2020-08-10 0 /d [facility] 00:00:00 00:00:00 Medical Branch Sex Assigned At [address] 1970 [facility] y of [place] 00:00:00 00:00:00 Medical Branch Smoking Status Start Date Stop Date Source Never smoker [facility] Medical Branch Medications Ordered Filled Start Stop Current Ordering Indication Dosage Frequency Signature Comments Components Source Medication Medication Date Date Medication? Clinician (SIG) Name Name ibuprofen 2020-03 600mg 600 mg, Uni vers (IBU) 0-18 10-18 Oral, ity of tablet 600 01:15: 00:25 ONCE, 1 [place] as mg 00 :00 dose, On Medical [place] [facility] 12/16/20 at 2015, KIARA ibuprofen Yes [id number] 600mg Take 1 Univers 600 mg 7-25 [id number] tablet by ity of tablet 00:00: mouth [place] 00 every 6 Medical (six) Branch hours as needed for Pain (scale 4-6). carvedilol Yes 12.5mg Take 12.5 Univers (COREG) 6-11 mg by ity of 12.5 mg 17:32: mouth 2 [place] tablet 24 (two) Medical times Branch daily with meals. ACETAMINOPH Yes Take by [place] EN (TYLENOL 6-11 mouth. ity of ORAL) 17:32: [place] 24 Medical Branch IRON/FA/B12 Yes Take by [place] /C/DOCUSATE 6-11 mouth. ity of SODIUM 17:32: [place] (FERRALET 24 Medical 90 ORAL) Branch AMLODIPINE Yes Take by Uni vers BESYLATE 6-11 mouth. ity of (AMLODIPINE 17:32: [place] ORAL) 24 Medical Branch DICLOFENAC Yes TAKE 1 Unive rs 75 mg EC 3-12 TABLET BY ity of tablet 00:00: MOUTH [place] 00 TWICE A Medical DAY WITH A Branch MEAL PROAIR HFA Yes INHALE 1 Uni vers 90 1-05 TO 2 PUFFS ity of mcg/actuati 00:00: [place]TH [place] inhaler 00 EVERY 4 TO Med ical 6 HOURS Branch NEEDED FOR DIFFICULTY BREATHING hydralAZINE 2016-03 Yes TAKE 1 Univ ers 25 mg 2-22 TABLET BY ity of tablet 00:00: MOUTH 3 [place] 00 TIMES A Medical DAY Branch furosemide 2016-03 Yes TAKE 1 TO [place] 40 mg 2-06 2 TABLETS ity of tablet 00:00: BY MOUTH [place] 00 EVERY DAY Medical NEEDED Branch FOR PEDAL EDEMA KCL 20 mEq 2016-03 Yes TAKE 1 Unive rs tablet 2-06 TABLET BY ity of 00:00: MOUTH [place] 00 EVERY DAY Medical NEEDED Branch ALWAYS TAKE WITH LASIX paroxetine 2016-03 Yes TAKE 1 TO [place] 10 mg 2-06 2 TABLETS ity of tablet 00:00: BY MOUTH [place] 00 EVERY DAY Medical Branch proMETHazin 2015-03 Yes 25mg Take 1 Univ ers e 1-17 tablet by ity of (PHENERGAN) 00:00: mouth [place] 25 mg 00 every 4 Medical tablet (four) Branch hours as needed for Nausea and Vomiting (N/V). Immunizations Ordered Filled Immunization Date Status Comments Sourc e Immunization Name Name SARS-COV-2 COVID-19 2020-06-12 Completed Unive rsity of PFIZER VACCINE 00:00:00 [facility] SARS-COV-2 COVID-19 2020-05-22 Completed Unive rsity of PFIZER VACCINE 00:00:00 [facility] Vital Signs Vital Name Observation Time Observation Value Comments Source Systolic blood 2020-12-17 00:26:20 171 mm[Hg] Univer sity of pressure [facility] Diastolic blood 2020-12-17 00:26:20 49 mm[Hg] Unive rsity of pressure [facility] Heart rate 2020-12-17 00:26:20 81 /min [facility] Body temperature 2020-12-17 00:26:20 37.17 [facility] Respiratory rate 2020-12-17 00:26:20 17 /min [facility] Oxygen saturation in 2020-12-17 00:26:20 97 /min [facility] Arterial blood by [facility] Pulse oximetry Branch BMI 2020-12-16 23:45:00 52.13 kg/m2 [facility] Body height 2020-12-16 23:45:00 157.5 cm [facility] Body weight 2020-12-16 23:45:00 129.275 kg [facility] Procedures Procedure Date / Time Performed Performing Clinician Sour e XR HAND 3+ VW LEFT 2020-12-17 00:17:09 Lopez Varghese [facility] XR TIBIA FIBULA 2 VW 2020-12-17 00:17:09 Lopez Varghese [facility] NOTICE OF PRIVACY 2020-12-16 23:34:21 [facility]igned, [facility] Branch CONSENT/REFUSAL FOR 2020-12-16 23:33:57 Doctor Unassigned, No [facility] AND Name Medical Branch TREATMENT Encounters Start End Encounter Admission Attending Care Care Encounter Source Date/Time Date/Time Type Type Clinicians Facility Department ID 2021-01-01 Emergency [facility] [id number] Univers 07:24:18 ity of [facility] 2020-12-31 Emergency [facility] [id number] Univers 10:37:43 ity of [facility] 2020-12-31 Emergency [facility] [id number] Univers 00:17:18 ity [facility] 2020-12-16 2020-12-16 Emergency Lopez Varghese [facility] [id number] Univers 18:48:00 19:54:00 Fozia Brian [id number] i ty [facility] [id number] [facility] [id number] [facility] 084 Branch 2020-06-12 2020-06-12 Outpatient [facility] [id number] Univers 14:40[facility] 2020-05-[facility] 2020-05-22 Outpatient Mandi FITZGERALD [facility] [id number] Univers 14:40:00 14:40:00 [facility] Results This patient has no known results.
== END 2021-01-01 21:37 | disposition home or self-care (01) ==
LOC: ER 19:24
DX: M79.642 Pain in left hand (principal); I10 Essential (primary) hypertension; Z88.5 Allergy status to narcotic agent; Z86.718 Personal history of other venous thrombosis and embolism; Z91.030 Bee allergy status; Z91.048 Other nonmedicinal substance allergy status
CPT/HCPCS: 99285

== ENCOUNTER 2021-02-28 20:34 | Emergency (ER) | payer SELFPAY ==
--- OUTSIDE RECORDS SUMMARY | 2021-02-28 20:37 | XMS REPORT | Continuity of Care Document ---
:1970 Author Organization [facility] t Address [address] [place] [address] Care Team Providers Name Role Phone Araceli Eubanks Primary Care Physician Fozia Burris Attending Clinician Edie FITZGERALD Attending Clinician Unavailable Payers Payer Name Policy Type Policy Number Effective Date Expiration Date S saulo [facility] [id number] 2018 PPO 00:00:00 Problems Condition Condition Condition [...] 6-12 it y of on on 00:00: [address] Branch Pulmonary Pulmonary Disease Active Uni vers hypertensi hypertensi 6-12 it y of on on 00:00: [place] [address] Medical Branch Chronic Chronic Disease Active Univers diastolic diastolic 6-12 ity of heart heart 00:00: [place] failure failure [address] [place] [address] Branch Hypertensi Hypertensi Disease Active U nivers [...] vers pain pain 1-29 ity of 00:00: [place] 00 Medical Branch Wrist Wrist Disease Active Univers [...] Quantity Comments Source Exposure to Not sure [facility] SARS-CoV-2 (event) Medica l Branch Alcohol intake 2020-08-10 2020-08-10 0 /d [facility] 00:00:00 00:00:00 Medical Branch [facility] [birth year] [facility] [place] [facility] Medical Branch Smoking Status Start Date Stop Date Source Never smoker [facility] Medical Branch Medications Ordered Filled Start Stop Current Ordering Indication Dosage Frequency Signature Comments Components Source Medication Medication Date Date Medication? Clinician (SIG) Name Name ibuprofen 2020-03 600mg 600 mg, Uni vers (IBU) 0-18 10-18 Oral, ity of tablet 600 01:15: 00:25 ONCE, 1 Rafael as mg 00 :00 dose, On [facility] 12/16/20 at 2015, KIARA ibuprofen Yes [id number] 600mg Take 1 Univers 600 mg 7-25 [id number] tablet by ity of tablet 00:00: mouth [...] Completed Unive rsity of PFIZER VACCINE 00:00:00 [facility] SARS-COV-2 COVID-19 2020-05-22 Completed Unive rsity of PFIZER VACCINE 00:00:00 [facility] Vital Signs Vital Name Observation Time Observation Value Comments Source Systolic blood 2020-12-17 00:26:20 171 mm[Hg] Univer sity of pressure [facility] Diastolic blood 2020-12-17 00:26:20 49 mm[Hg] Unive rsity of pressure [facility] [place] Heart rate 2020-12-17 00:26:20 81 /min [facility] Body temperature 2020-12-17 00:26:20 37.17 Zuleyma [facility] Respiratory rate 2020-12-17 00:26:20 17 /min [facility] Oxygen saturation in 2020-12-17 00:26:20 97 /min [facility] Arterial blood by [facility] Pulse oximetry Branch BMI 2020-12-16 23:45:00 52.13 kg/m2 [facility] Body height 2020-12-16 23:45:00 157.5 cm [facility] Body weight 2020-12-16 23:45:00 129.275 kg [facility] Procedures Procedure Date / Time Performed Performing Clinician Sour e XR HAND 3+ VW LEFT 2020-12-17 00:17:09 Lopez Varghese [facility] XR TIBIA FIBULA 2 VW 2020-12-17 00:17:09 Lopez Varghese [facility] NOTICE OF PRIVACY 2020-12-16 23:34:21 Doctor Unassigned, No [facility] Name Medical Branch CONSENT/REFUSAL FOR 2020-12-16 23:33:57 Doctor Unassigned, No [facility] [place] DIAGNOSIS AND Name Medical Branch TREATMENT Encounters Start End Encounter Admission Attending Care Care Encounter Source Date/Time Date/Time Type Type Clinicians Facility Department ID 2021-01-01 Emergency [facility] [id number] Univers 07:24:18 ity of [facility] [place] 2020-12-31 Emergency [facility] [id number] Univers 10:37:43 ity of [facility] [place] 2020-12-31 Emergency [facility] [id number] Univers 00:17:18 ity [facility] 2020-12-16 2020-12-16 Emergency Lopez Varghese [facility] [id number] Univers 18:48:00 19:54:00 Fozia Brian [id number] i ty nikole Sepulveda [id number] [facility] [id number] [facility] alda 084 Branch 2020-06-12 2020-06-12 Outpatient [facility] [id number] Univers 14:40:00 14:40:00 ity [facility] 2020-05-22 2020-05-22 Outpatient Mandi FITZGERALD, [facility] [id number] Univers 14:40:00 14:40:00 BAMBI [facility] Results This patient has no known results.
--- NOTE | 2021-03-01 00:10 | ER ---
Nurse's Notes [facility] Name: Deyvi Avendano Age: 50 yrs Sex: Female : 1970 Arrival Date: 02/28/2021 Time: 21:11 Bed Waiting Private MD: Diagnosis: ED Course: 02/28 21:11 Patient arrived in ED. ja2 03/01 00:09 Patient's name was called from ER lobby. No response. Unable to locate patient. Will bb disposition as left without being seen by a provider. Administered Medications: No medications were administered Outcome: 00:09 Patient left the ED. bb Signatures: Kaila Luu RN RN bb Yvonne Reese
== END 2021-03-01 00:09 | disposition left against medical advice (07) ==
LOC: ER 20:34
DX: Z02.89 Encounter for other administrative examinations (principal)

== ENCOUNTER 2021-04-01 18:53 | Emergency (ER) | payer SELFPAY ==
--- OUTSIDE RECORDS SUMMARY | 2021-04-01 18:56 | XMS REPORT | Continuity of Care Document ---
:1970 Author Organization [facility] t Address [address] [place] [address] Care Team Providers Name Role Phone Araceli Eubanks Primary Care Physician Fozia Burris Attending Clinician Edie FITZGERALD Attending Clinician Unavailable Payers Payer Name Policy Type Policy Number Effective Date Expiration Date S saulo [facility] [id number] 2018 PPO 00:00:00 Problems Condition Condition Condition [...] 6-12 it y of on on 00:00: [address] Branch Pulmonary Pulmonary Disease Active Uni vers hypertensi hypertensi 6-12 it y of on on 00:00: [address] Branch Chronic Chronic Disease Active Univers diastolic diastolic 6-12 ity of heart heart 00:00: [place] failure failure [address] [place] [address] Branch Hypertensi Hypertensi Disease Active U nivers [...] vers pain pain 1-29 ity of 00:00: [place] 00 Medical Branch Wrist Wrist Disease Active [...] Quantity Comments Source Exposure to Not sure [facility] SARS-CoV-2 (event) Medica l Branch Alcohol intake 2020-08-10 2020-08-10 0 /d [facility] 00:00:00 00:00:00 Medical Branch Sex Assigned At [birth year] [facility] [place] 00:00:00 00:00:00 Medical Branch Smoking Status Start Date Stop Date Source Never smoker [facility] Medical Branch Medications Ordered Filled Start Stop Current Ordering Indication Dosage Frequency Signature Comments Components Source Medication Medication Date Date Medication? Clinician (SIG) Name Name ibuprofen 2020-03 600mg 600 mg, Uni vers (IBU) 0-18 10-18 Oral, ity of tablet 600 01:15: 00:25 ONCE, 1 Rafael as mg 00 :00 dose, On [facility] 12/16/20 at 2015, KIARA ibuprofen Yes [id number] 600mg Take 1 Univers 600 mg 7-25 [id number] tablet by ity of tablet 00:00: mouth [...] Completed Unive rsity of PFIZER VACCINE 00:00:00 [facility] SARS-COV-2 COVID-19 2020-05-22 Completed Unive rsity of PFIZER VACCINE 00:00:00 [facility] Vital Signs Vital Name Observation Time Observation Value Comments Source Systolic blood 2020-12-17 00:26:20 171 mm[Hg] Univer sity of pressure [facility] Diastolic blood 2020-12-17 00:26:20 49 mm[Hg] Unive rsity of pressure [facility] Heart rate 2020-12-17 00:26:20 81 /min [facility] Body temperature 2020-12-17 00:26:20 37.17 Zuleyma [facility] Respiratory rate 2020-12-17 00:26:20 17 /min [facility] Oxygen saturation in 2020-12-17 00:26:20 97 /min [facility] Arterial blood by [facility] Pulse oximetry Branch BMI 2020-12-16 23:45:00 52.13 kg/m2 [facility] Body height 2020-12-16 23:45:00 157.5 cm [facility] Body weight 2020-12-16 23:45:00 129.275 kg [facility] Procedures Procedure Date / Time Performed Performing Clinician Sour e XR HAND 3+ VW LEFT 2020-12-17 00:17:09 Lopez Varghese [facility] XR TIBIA FIBULA 2 VW 2020-12-17 00:17:09 Lopez Varghese [facility] NOTICE OF PRIVACY 2020-12-16 23:34:21 Doctor Unassigned, No [facility] Name [facility] Branch CONSENT/REFUSAL FOR 2020-12-16 23:33:57 Doctor Unassigned, No [facility] [place] DIAGNOSIS AND Name Medical Branch TREATMENT Encounters Start End Encounter Admission Attending Care Care Encounter Source Date/Time Date/Time Type Type Clinicians Facility Department ID 2021-01-01 Emergency [facility] [id number] Univers 07:24:18 ity of [facility] 2020-12-31 Emergency [facility] [id number] Univers 10:37:43 ity of [facility] 2020-12-31 Emergency [facility] [id number] Univers 00:17:18 ity [facility] 2020-12-16 2020-12-16 Emergency Lopez Varghese [facility] [id number] Univers 18:48:00 19:54:00 Fozia Brian [id number] i ty nikole Sepulveda [id number] [facility] [id number] [facility] alda 084 Branch 2020-06-12 2020-06-12 Outpatient [facility] [id number] Univers 14:40:00 14:40:00 ity [facility] 2020-05-22 2020-05-22 Outpatient Mandi FITZGERALD, [facility] [id number] Univers 14:40:00 14:40:00 BAMBI [facility] Results This patient has no known results.
--- NOTE | 2021-04-01 20:29 | RAD REPORT ---
EXAM DESCRIPTION: RAD - Hand Left 3 View - 04/01/2021 8:02 pm CLINICAL HISTORY: SMASH INJURY COMPARISON: <Comparisons> FINDINGS/IMPRESSION: No acute fracture. No malalignment. No significant focal degenerative changes.
[2021-04-01] MEDS ORDERED: TRAMADOL HCL 50 MG TAB ONE (21:39)
--- NOTE | 2021-04-01 21:57 | ER ---
Nurse's Notes [facility] Name: Deyvi Avendano Age: 50 yrs Sex: Female : 1970 Arrival Date: 04/01/2021 Time: 18:54 Bed 12 Private MD: Diagnosis: Unspecified injury of flexor muscle, fascia and tendon of left ring finger at wrist and hand level, initial encounter Presentation: 04/01 19:09 Chief complaint: Patient states: In November I was doing cartwheels at work and my jh6 finger hasn't been able to straighten out since, then my granddaughter shut my finger in the car door on Thursday, then I shut my finger in the door at work on , My doctor said I need surgery on my finger but he told me it will cost 7 thousand dollars. Coronavirus screen: Vaccine status: Patient reports receiving the 2nd dose of the covid vaccine. At this time, the client does not indicate any symptoms associated with coronavirus-19. Ebola Screen: No symptoms or risks identified at this time. Initial Sepsis Screen: Does the patient meet any 2 criteria? No. Patient's initial sepsis screen is negative. Does the patient have a suspected source of infection? No. Patient's initial sepsis screen is negative. Risk Assessment: Do you want to hurt yourself or someone else? Patient reports no desire to harm self or others. Onset of symptoms was March 26, 2021. 19:09 Method Of Arrival: Ambulatory [facility] 19:09 Acuity: KENYETTA 4 6 Triage Assessment: 19:18 General: Appears in no apparent distress. uncomfortable, Behavior is calm, cooperative. 6 Pain: Complains of pain in palmar aspect of distal phalanx of left ring finger, palmar aspect of middle phalanx of left ring finger and palmar aspect of proximal phalanx of left ring finger Pain currently is 8 out of 10 on a pain scale. Neuro: Level of Consciousness is awake, alert, obeys commands, Oriented to person, place, time, situation. Cardiovascular: Patient's skin is warm and dry. Respiratory: Respiratory effort is even, unlabored, Respiratory pattern is regular, symmetrical. Derm: Skin is pink, warm \T\ dry. Musculoskeletal: Range of motion: limited in DIP of left ring finger, PIP of left ring finger and MCP of left ring finger Reports pain in palmar aspect of distal phalanx of left ring finger, palmar aspect of middle phalanx of left ring finger and palmar aspect of proximal phalanx of left ring finger. Injury Description: Crush injury. 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 - Post-menopause [facility] Historical: - Allergies: 19:18 Bees; [facility] 19:18 Bleach (Sodium Hypochlorite); [facility] 19:18 Morphine; [facility] - Home Meds: 19:18 amlodipine 10 mg tab 1 tab once daily [Active]; Coreg 3.125 mg Oral tab 1 tab 2 times jh6 per day [Active]; losartan 25 mg Oral tab [Active]; - PMHx: 19:18 DVT; Hypertension; [facility] - PSHx: 19:18 section; Cholecystectomy; Left knee replacement; 6 - Immunization history:: Client reports receiving the 2nd dose of the Covid vaccine. - Social history:: Smoking status: Patient denies any tobacco usage or history of. Screenin:05 Abuse screen: Denies threats or abuse. Nutritional screening: No deficits noted. st1 Tuberculosis screening: No symptoms or risk factors identified. Fall Risk None identified. No fall in past 12 months (0 pts). No secondary diagnosis (0 pts). No IV (0 pts). Ambulatory Aid- None/Bed Rest/Nurse Assist (0 pts). Gait- Normal/Bed Rest/Wheelchair (0 pts) Mental Status- Oriented to own ability (0 pts). Total Gordon Fall Scale indicates No Risk (0-24 pts). Assessment: 22:06 Reassessment: Patient appears in no apparent distress at this time. No changes from st1 previously documented assessment. Vital Signs: 19:09 BP 138 / 80; Pulse 96; Resp 17; Temp 98.4(O); Pulse Ox 96% ; Weight 133.36 kg (R); [facility] Height 5 ft. 2 in. (157.48 cm) (R); Pain 8/10; 22:06 BP 135 / 65; Pulse 84; Resp 14; Pulse Ox 100% on R/A; st1 19:09 Body Mass Index 53.77 (133.36 kg, 157.48 cm) [facility] ED Course: 18:54 Patient arrived in ED. as 19:18 Triage completed. jh6 19:18 Arm band placed on right wrist. Patient placed in an exam room. 6 19:23 Aric Acevedo NP is PHCP. pm1 19:23 Feliberto Albert MD is Attending Physician. pm1 20:03 Hand Left 3 View XRAY In Process Unspecified. EDMS 21:56 Andrea Anders MD is Referral Physician. pm1 22:05 No provider procedures requiring assistance completed. Patient did not have IV access st1 during this emergency room visit. 22:06 Patient has correct armband on for positive identification. Call light in reach. st1 patient is sitting in chair. 22:07 placed splint on the 3rd finger of the left hand. patient tolerated splinting well. st1 Administered Medications: 21:38 Drug: traMADol 50 mg Route: PO; ld1 Outcome: 21:56 Discharge ordered by . pm1 22:07 Discharged to home st1 22:07 Condition: improved 22:07 Discharge instructions given to patient, Instructed on discharge instructions, follow up and referral plans. medication usage, Demonstrated understanding of instructions, follow-up care, medications, Prescriptions given X 1. 22:11 Patient left the ED. st1 Signatures: Dispatcher [employer] EDMS Nikole Coleman as Aric Acevedo NP WOOL WASHER FEEDER pm1 Annabella Garay RN RN ld1 Tita Harper RN RN 6 Queta Cleaning RN RN st1 Corrections: (The following items were deleted from the chart) 19:18 19:09 Care prior to arrival: Medication(s) given: [place] [address]
--- NOTE | 2021-04-01 21:58 | EDPHYS ---
Physician Documentation [facility] Name: Deyvi Avendano Age: 50 yrs Sex: Female : 1970 Arrival Date: 04/01/2021 Time: 18:54 Bed 12 Private MD: XAVIER Physician Feliberto Albert HPI: 04/01 19:58 This 50 yrs old Female presents to ER via Ambulatory with complaints of Hand Injury. pm1 19:58 The patient or guardian reports left 4th finger injury. The complaints affect the left pm1 ring finger. Context: resulted from hand injury when she was doing cartwheels in November of last year. Her finger is stuck in a curled position. Patient reports that her same injured finger was then smashed in a car door and was straightened out and then curled up. 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 - Social history:: Smoking status: Patient denies any tobacco usage or history of. ROS: 19:58 Constitutional: Negative for fever, chills, and weight loss, Cardiovascular: Negative pm1 for chest pain, palpitations, and edema, Respiratory: Negative for shortness of breath, cough, wheezing, and pleuritic chest pain. 19:58 Skin: Negative for injury, rash, and discoloration, Neuro: Negative for headache, weakness, numbness, tingling, and seizure. 19:58 MS/extremity: Positive for decreased range of motion, pain, swelling, tenderness, of the PIP of left ring finger. 19:58 All other systems are negative. Exam: 19:58 Constitutional: This is a well developed, well nourished patient who is awake, alert, pm1 and in no acute distress. Head/Face: Normocephalic, atraumatic. 19:58 Skin: Warm, dry with normal turgor. Normal color with no rashes, no lesions, and no evidence of cellulitis. 19:58 Cardiovascular: Exam negative for acute changes, Rate: normal, Rhythm: regular, Pulses: no pulse deficits are appreciated. 19:58 Respiratory: Exam negative for acute changes, respiratory distress, shortness of breath. 19:58 Musculoskeletal/extremity: Extremities: grossly normal except: noted in the PIP of left ring finger: decreased ROM, swelling, tenderness, There is no evidence of deformity. 19:58 Neuro: Exam negative for acute changes, Orientation: is normal, Mentation: is normal, Motor: is normal, moves all fours. Vital Signs: 19:09 BP 138 / 80; Pulse 96; Resp 17; Temp 98.4(O); Pulse Ox 96% ; Weight 133.36 kg (R); jh6 Height 5 ft. 2 in. (157.48 cm) (R); Pain 8/10; 22:06 BP 135 / 65; Pulse 84; Resp 14; Pulse Ox 100% on R/A; st1 19:09 Body Mass Index 53.77 (133.36 kg, 157.48 cm) 6 MDM: 19:24 Patient medically screened. pm1 21:01 Data reviewed: vital signs. Data interpreted: Pulse oximetry: on room air is 96 %. pm1 Interpretation: normal. 21:54 Counseling: I had a detailed discussion with the patient and/or guardian regarding: the pm1 historical points, exam findings, and any diagnostic results supporting the discharge/admit diagnosis, radiology results, the need for outpatient follow up, for definitive care, a hand specialist, to return to the emergency department if symptoms worsen or persist or if there are any questions or concerns that arise at home. 21:54 ED course: Patient would not allow me to straighten her finger. Patient preferred to pm1 straighten her finger herself. Patient's injury occurred 3 months ago. Possibility of contracture present since patient has not splinted finger after injury. Patient with likely flexor tendon or muscle rupture and discussed follow up with hand surgery. 04/01 19:32 Order name: Hand Left 3 View XRAY; Complete Time: 20:32 pm1 04/01 20:52 Order name: Finger Splint; Complete Time: 22:04 pm1 Administered Medications: 21:38 Drug: traMADol 50 mg Route: PO; ld1 Disposition: 04/02 15:16 Co-signature as Attending Physician, Feliberto Albert MD I agree with the assessment and mckinley plan of care. Disposition Summary: 04/01/21 21:56 Discharge Ordered Location: Home pm1 Problem: new pm1 Symptoms: have improved pm1 Condition: Stable pm1 Diagnosis - Unspecified injury of flexor muscle, fascia and tendon of left ring finger at wrist pm1 and hand level, initial encounter Followup: pm1 - With: Emergency Department - When: As needed - Reason: Worsening of condition Followup: pm1 - With: Andrea Anders MD - When: 2 - 3 days - Reason: Recheck today's complaints, Continuance of care, Re-evaluation by your physician Discharge Instructions: - Discharge Summary Sheet pm1 - Cast or Splint Care, Adult pm1 Forms: - Medication Reconciliation Form pm1 - Thank You Letter pm1 - Antibiotic Education pm1 - Prescription Opioid Use pm1 Prescriptions: - Tramadol 50 mg Oral Tablet - take 1 tablet by ORAL route every 8 hours as needed; 12 tablet; Refills: 0, pm1 Product Selection Permitted Signatures: Dispatcher [employer] EDMS Feliberto Albert MD MD cha Marinas, Patrick, NP SANDING MACHINE OPERATOR pm1 Annabella Garay, RN RN ld1 Tita Harper RN RN jh6
[2021-04-01 22:46] VITALS: TEMP 98.4
[2021-04-01 22:48] VITALS: BP 135/65; O2SAT 100
== END 2021-04-01 22:11 | disposition home or self-care (01) ==
LOC: ER 18:53
DX: S66.105A Unspecified injury of flexor muscle, fascia and tendon of left ring finger at wrist and hand level, initial encounter (principal); I10 Essential (primary) hypertension; Z88.6 Allergy status to analgesic agent; Z91.048 Other nonmedicinal substance allergy status; Z91.030 Bee allergy status; Z86.718 Personal history of other venous thrombosis and embolism; Z90.49 Acquired absence of other specified parts of digestive tract
CPT/HCPCS: 99283

== ENCOUNTER 2022-12-27 22:18 | Emergency (ER) | payer OTHER, SELFPAY ==
--- OUTSIDE RECORDS SUMMARY | 2022-12-27 22:25 | XMS REPORT | Continuity of Care Document ---
:1970 Author Organization [facility] t Address [address] [place] [address] [place] [id number] Care Team Providers Name Role Phone LA NENA MARTINEZ Primary Care Physician Unavailable WARREN DEVLIN Attending Clinician Unavailable Lopez ALLEN Attending Clinician Unavailable Lopez Burris Attending Clinician Teresa Gomez Attending Clinician Unknown, Attending Attending Clinician Unavailable TERESA ALEXANDRE Attending Clinician Unavailable Doctor Unassigned, [place] Attending Clinician Unavailable KATHARINA CARLSON Attending Clinician Unavailable Katharina Carlson MD Attending Clinician BAMBI FITZGERALD Attending Clinician Unavailable Lopez ALLEN Admitting Clinician Unavailable KATHARINA CARLSON Admitting Clinician Unavailable Payers Payer Name Policy Type Policy Number Effective Date Expiration Date [facility] [id number] 2018 PPO 00:00:00 Problems Condition Condition Condition [...] 6-12 it y of on on 00:00: [place] [facility] Pulmonary Pulmonary Disease Active Uni vers hypertensi hypertensi 6-12 it y of on on 00:00: [place] [facility] Chronic Chronic Disease Active Univers diastolic diastolic 6-12 ity of heart heart 00:00: [place] failure failure 00 Medical Branch Hypertensi Hypertensi Disease Active U nivers ve heart ve heart 6-12 ity of disease disease 00:00: [place] with with 00 Medical chronic chronic Branch diastolic diastolic congestive congestive heart heart failure failure Hypoxia Hypoxia Disease Active Univers 6-10 ity of 00:00: [place] [facility] Morbid Morbid Disease Active Univers obesity obesity 4-30 ity of with body with body 00:00[place] mass index mass index 00 Me dical of of Branch 40.0-49.9 40.0-49.9 Total knee Total knee Disease Active U nivers replacemen replacemen 4-30 it y of t status t status 00:00: Medical Branch Left knee Left knee Disease Active 2015-03 Uni vers pain pain 1-29 ity of 00:00: [place] [facility] Left knee Left knee Disease Active 2015-03 Uni vers pain pain 1-29 ity of 00:00: [place] [facility] Wrist Wrist Disease Active Univers pain, left pain, left 3-14 it y of 00:00: [place] [facility] Allergies, Adverse Reactions, Alerts Allergy [...] Start Date Stop Date Quantity Comments Source Sexual orientation Cassie pang of [facility] Alcohol intake 2022-11-20 2022-11-20 0 /d University of 00:00:00 00:00:00 [facility] Exposure to 2022-05-06 2022-05-16 Not sure University of SARS-CoV-2 (event) 00:00:00 11:11:00 [facility] History of Social 2018-09-09 2018-09-09 Univers ity of function 00:00:00 00:00:00 [facility] Tobacco use and 2016-01-29 2016-01-29 Smokeless Universit y of exposure 00:00:00 00:00:00 tobacco non-user [facility] Sex Ass[birth year] At [birth year] Universit y of 00:00:00 00:00:00 [facility] Smoking Status Start Date Stop Date Source Never smoked tobacco [facility] Medications Ordered Filled Start Stop Current Ordering Indication Dosage Frequency Signature Comments Components Source Medication Medication Date Date Medication? Clinician (SIG) Name Name naproxen No 500mg 500 mg, Univ ers (NAPROSYN) 11-20 Oral, ity of tablet 500 22:30: 21:23 ONCE, 1 [place] mg 00 :00 [facility]22 at 1730, Routine naproxen Yes [id number] 500mg Take 1 Univers (NAPROSYN) 11-20 [id number] tablet by it y of 500 mg 00:00: mouth in [place] tablet 00 the Medical morning Branch and 1 tablet in the evening. Take with meals. amoxicillin 2022- No [id number] 1{tbl} Take 1 Univers -clavulanat 08-24 tablet by it y of e 875-125 00:00: 04:59 mouth in [place] as mg per 00 :00 the Medical tablet morning Branch and 1 tablet in the evening. Do all this for 7 days. neomycin-po 2022- No [id number] 3[drp] Place 3 Univers lymyxin-hyd 08-24 Drops in ity of rocortisone 00:00: 04:59 right ear [place] otic 00 :00 4 (four) Medical solution times Branch daily for 7 days. ibuprofen 2020-03 No 600mg 600 mg, Uni vers (IBU) 0-18 -18 Oral, ity of tablet 600 01:15: 00:25 ONCE, 1 [place] as mg 00 :00 dose, On [facility] Branch 12/16/20 at 2015, KIARA ibuprofen Yes [id number] 600mg Take 1 Univers 600 mg 7-25 [id number] tablet by ity of tablet 00:00: mouth [place] 00 every 6 Medical (six) Branch hours as needed for Pain (scale 4-6). ibuprofen 2020-0 Yes [id number] 600mg Take 1 Univers 600 mg 7-25 [id number] tablet by ity of tablet 00:00: mouth [place] 00 every 6 Medical (six) Branch hours as needed for Pain (scale 4-6). ibuprofen 2020-0 Yes [id number] 600mg Take 1 Univers 600 mg 7-25 [id number] tablet by ity of tablet 00:00: mouth [place] 00 every 6 Medical (six) Branch hours as needed for Pain (scale 4-6). ibuprofen 2020-0 Yes [id number] 600mg Take 1 Univers 600 mg 7-25 [id number] tablet by ity of tablet 00:00: mouth [place] 00 every 6 Medical (six) Branch hours as needed for Pain (scale 4-6). ibuprofen 2020-0 Yes [id number] 600mg Take 1 Univers 600 mg 7-25 [id number] tablet by ity of tablet 00:00: mouth [place] 00 every 6 Medical (six) Branch hours as needed for Pain (scale 4-6). carvedilol Yes 12.5mg Take 12.5 Univers (COREG) 6-11 mg by ity of 12.5 mg 17:32: mouth 2 [place] tablet 24 (two) Medical times Branch daily with meals. ACETAMINOPH 0 Yes Take by Uni vers EN (TYLENOL 6-11 mouth. ity of ORAL) 17:32: [place] 24 Medical Branch IRON/FA/B12 0 Yes Take by Uni vers /C/DOCUSATE 6-11 mouth. ity of SODIUM 17:32: [place] (FERRALET 24 Medical 90 ORAL) Branch AMLODIPINE Yes Take by Univ ers BESYLATE 6-11 mouth. ity of (AMLODIPINE 17:32: [place] ORAL) 24 Medical Branch carvedilol 2020-0 Yes 12.5mg Take 12.5 Univers (COREG) 6-11 mg by ity of 12.5 mg 17:32: mouth 2 [place] tablet 24 (two) Medical times Branch daily with meals. ACETAMINOPH 2020-0 Yes Take by Uni vers EN (TYLENOL 6-11 mouth. ity of ORAL) 17:32: [address] Branch IRON/FA/B12 Yes Take by Uni vers /C/DOCUSATE 6-11 mouth. ity of SODIUM 17:32: [place] (FERRALET 24 Medical 90 ORAL) Branch AMLODIPINE Yes Take by Univ ers BESYLATE 6-11 mouth. ity of (AMLODIPINE 17:32: [place] ORAL) [address] [place] [address] Branch carvedilol Yes 12.5mg Take 12.5 Univers (COREG) 6-11 mg by ity of 12.5 mg 17:32: mouth 2 [place] tablet 24 (two) Medical times [place] daily with meals. ACETAMINOPH 0 Yes Take by Uni vers EN (TYLENOL 6-11 mouth. ity of ORAL) 17:32: [address] IRON/FA/B12 Yes Take by Uni vers /C/DOCUSATE 6-11 mouth. ity of SODIUM 17:32: [place] (FERRALET 24 Medical 90 ORAL) Branch AMLODIPINE Yes Take by Univ ers BESYLATE 6-11 mouth. ity of (AMLODIPINE 17:32: [place] ORAL) [address] [place] [address] Branch carvedilol Yes 12.5mg Take 12.5 Univers (COREG) 6-11 mg by ity of 12.5 mg 17:32: mouth 2 [place] tablet 24 (two) Medical times [place] daily with meals. ACETAMINOPH 0 Yes Take by Uni vers EN (TYLENOL 6-11 mouth. ity of ORAL) 17:32: [address] IRON/FA/B12 Yes Take by Uni vers /C/DOCUSATE 6-11 mouth. ity of SODIUM 17:32: [place] (FERRALET 24 Medical 90 ORAL) Branch AMLODIPINE Yes Take by Univ ers BESYLATE 6-11 mouth. ity of (AMLODIPINE 17:32: [place] ORAL) [address] [place] [address] Branch carvedilol 0 Yes 12.5mg Take 12.5 Univers (COREG) 6-11 mg by ity of 12.5 mg 17:32: mouth 2 [place] tablet 24 (two) Medical times [place] daily with meals. ACETAMINOPH 0 Yes Take by Uni vers EN (TYLENOL 6-11 mouth. ity of ORAL) 17:32: [address] IRON/FA/B12 Yes Take by Uni vers /C/DOCUSATE 611 mouth. ity of SODIUM 17:32: [place] (FERRALET 24 Medical 90 ORAL) Branch AMLODIPINE Yes Take by Univ ers BESYLATE 11 mouth. ity of (AMLODIPINE 17:32: [place] ORAL) 24 Medical Branch DICLOFENAC Yes TAKE 1 Unive rs 75 mg EC 3-12 TABLET BY ity of tablet 00:00: MOUTH [place] 00 TWICE A Medical DAY WITH A Branch MEAL DICLOFENAC Yes TAKE 1 Unive rs 75 mg EC 3-12 TABLET BY ity of tablet 00:00: MOUTH [place] 00 TWICE A Medical DAY WITH A Branch MEAL DICLOFENAC Yes TAKE 1 Unive rs 75 mg EC 3-12 TABLET BY ity of tablet 00:00: MOUTH [place] 00 TWICE A Medical DAY WITH A Branch MEAL DICLOFENAC Yes TAKE 1 Unive rs 75 mg EC 3-12 TABLET BY ity of tablet 00:00: MOUTH [place] 00 TWICE A Medical DAY WITH A Branch MEAL DICLOFENAC Yes TAKE 1 Unive rs 75 mg EC 3-12 TABLET BY ity of tablet 00:00: MOUTH [place] 00 TWICE A Medical DAY WITH A Branch MEAL PROAIR HFA Yes INHALE 1 Uni vers 90 1-05 TO 2 PUFFS ity of mcg/actuati 00:00: BY [place]TH [place] on inhaler 00 EVERY 4 TO Med ical 6 HOURS Branch NEEDED FOR DIFFICULTY BREATHING PROAIR HFA Yes INHALE 1 Uni vers 90 1-05 TO 2 PUFFS ity of mcg/actuati 00:00: [place]TH [place] inhaler 00 EVERY 4 TO Med ical 6 HOURS Branch NEEDED FOR DIFFICULTY BREATHING PROAIR HFA Yes INHALE 1 Uni vers 90 1-05 TO 2 PUFFS ity of mcg/actuati 00:00: [place]TH [place] inhaler 00 EVERY 4 TO Med ical 6 HOURS Branch NEEDED FOR DIFFICULTY BREATHING PROAIR HFA Yes INHALE 1 Uni vers 90 1-05 TO 2 PUFFS ity of mcg/actuati 00:00: [place]TH [place] inhaler 00 EVERY 4 TO Med ical 6 HOURS Branch NEEDED FOR DIFFICULTY BREATHING PROAIR HFA Yes INHALE 1 Uni vers 90 1-05 TO 2 PUFFS ity of mcg/actuati 00:00: [place]TH [place] inhaler 00 EVERY 4 TO Med ical 6 HOURS Branch NEEDED FOR DIFFICULTY BREATHING hydralAZINE 2016-03 Yes TAKE 1 Univ ers 25 mg 2-22 TABLET BY ity of tablet 00:00: MOUTH 3 [place] 00 TIMES A Medical DAY Branch hydralAZINE 2016-03 Yes TAKE 1 Univ ers 25 mg 2-22 TABLET BY ity of tablet 00:00: MOUTH 3 [place] TIMES A Medical DAY Branch hydralAZINE 2016-03 Yes TAKE 1 Univ ers 25 mg 2-22 TABLET BY ity of tablet 00:00: MOUTH 3 [place] TIMES A Medical DAY Branch hydralAZINE 2016-03 Yes TAKE 1 Univ ers 25 mg 2-22 TABLET BY ity of tablet 00:00: MOUTH 3 [place] TIMES A Medical DAY Branch hydralAZINE 2016-03 Yes TAKE 1 Univ ers 25 mg 2-22 TABLET BY ity of tablet 00:00: MOUTH 3 [place] TIMES A Medical DAY Branch furosemide 2016-03 Yes TAKE 1 TO [place] 40 mg 2-06 2 TABLETS ity of tablet 00:00: BY MOUTH [place] [address] EVERY DAY Medical NEEDED Branch FOR PEDAL EDEMA KCL 20 mEq 2016-03 Yes TAKE 1 Unive rs tablet 2-06 TABLET BY ity of 00:00: [place] [address] EVERY DAY Medical NEEDED Branch ALWAYS TAKE WITH LASIX paroxetine 2016-03 Yes TAKE 1 TO Un [place] 10 mg 2-06 2 TABLETS ity of tablet 00:00: BY [place] [address] EVERY DAY Medical Branch furosemide 2016-03 Yes TAKE 1 TO Un [place] 40 mg 2-06 2 TABLETS ity of tablet 00:00: BY [place] [address] EVERY DAY Medical NEEDED Branch FOR PEDAL EDEMA KCL 20 mEq 2016-03 Yes TAKE 1 Unive rs tablet 2-06 TABLET BY ity of 00:00: [place] [address] EVERY DAY Medical NEEDED Branch ALWAYS TAKE WITH LASIX paroxetine 2016-03 Yes TAKE 1 TO [place] 10 mg 2-06 2 TABLETS ity of tablet 00:00: BY [place] [address] EVERY DAY Medical Branch furosemide 2016-03 Yes TAKE 1 TO [place] 40 mg 2-06 2 TABLETS ity of tablet 00:00: BY [place] [address] EVERY DAY Medical NEEDED Branch FOR PEDAL EDEMA KCL 20 mEq 2016-03 Yes TAKE 1 Unive rs tablet 2-06 TABLET BY ity of 00:00: MOUTH [place] 00 EVERY DAY Medical NEEDED Branch ALWAYS TAKE WITH LASIX paroxetine 2016-03 Yes TAKE 1 TO Un [place] 10 mg 2-06 2 TABLETS ity of tablet 00:00: BY MOUTH [place] 00 EVERY DAY Medical Branch furosemide 2016-03 Yes TAKE 1 TO [...] MOUTH [place] 00 EVERY DAY Medical Branch furosemide 2016-03 Yes TAKE 1 TO [...] as needed for Nausea and Vomiting (N/V). proMETHazin 2015-03 Yes 25mg Take 1 Univ ers e 1-17 tablet by ity of (PHENERGAN) 00:00: mouth [place] 25 mg 00 every 4 Medical tablet (four) Branch hours as needed for Nausea and Vomiting (N/V). proMETHazin 2015-03 Yes 25mg Take 1 Univ ers e 1-17 tablet by ity of (PHENERGAN) 00:00: mouth [place] 25 mg 00 every 4 Medical tablet (four) Branch hours as needed for Nausea and Vomiting (N/V). proMETHazin 2015-03 Yes 25mg Take 1 Univ ers e 1-17 tablet by ity of (PHENERGAN) 00:00: mouth [place] 25 mg 00 every 4 Medical tablet (four) Branch hours as needed for Nausea and Vomiting (N/V). proMETHazin 2016- Yes 25mg Take 1 Univ ers e 1-17 tablet by ity of (PHENERGAN) 00:00: mouth [place] 25 mg 00 every 4 Medical tablet (four) Branch hours as needed for Nausea and Vomiting (N/V). Immunizations Ordered Filled Date Status Comments Source Immunization Name Immunization Name SARS-COV-2 COVID-19 2020-06-12 Completed Unive rsity of PFIZER VACCINE 00:00:00 [facility] SARS-COV-2 COVID-19 2020-06-12 Completed Unive rsity of PFIZER VACCINE 00:00:00 [facility] SARS-COV-2 COVID-19 2020-06-12 Completed Unive rsity of PFIZER VACCINE 00:00:00 [facility] SARS-COV-2 COVID-19 2020-06-12 Completed Unive rsity of PFIZER VACCINE 00:00:00 [facility] SARS-COV-2 COVID-19 2020-05-22 Completed Unive rsity of PFIZER VACCINE 00:00:00 [facility] SARS-COV-2 COVID-19 2020-05-22 Completed Unive rsity of PFIZER VACCINE 00:00:00 [facility] SARS-COV-2 COVID-19 2020-05-22 Completed Unive rsity of PFIZER VACCINE 00:00:00 [facility] SARS-COV-2 COVID-19 2020-05-22 Completed Unive rsity of PFIZER VACCINE 00:00:00 [facility] SARS-COV-2 COVID-19 Unknown Completed Unive rsity of PFIZER VACCINE [facility] SARS-COV-2 COVID-19 Unknown Completed Unive rsity of PFIZER VACCINE [facility] Vital Signs Vital Name Observation Time Observation Value Comments Source Systolic blood 2022-11-21 00:00:00 150 mm[Hg] Univer sity of pressure [facility] Diastolic blood 2022-11-21 00:00:00 90 mm[Hg] Unive rsity of pressure [facility] Heart rate 2022-11-21 00:00:00 80 /min [facility] Body temperature 2022-11-21 00:00:00 37.06 Zuleyma Univ ersity of [place] [facility] Respiratory rate 2022-11-21 00:00:00 18 /min Univ ersity of [place] [facility] Oxygen saturation in 2022-11-21 00:00:00 100 /min University of Arterial blood by [place] [facility] [employer] Pulse oximetry Branch Body weight 2022-11-20 20:48:00 130.182 kg Universi ty of [place] [facility] BMI 2022-11-20 20:48:00 52.49 kg/m2 Universi ty of [place] [facility] Systolic blood 2022-08-24 23:38:00 154 mm[Hg] Univer sity of pressure [place] [facility] Diastolic blood 2022-08-24 23:38:00 88 mm[Hg] Unive rsity of pressure [place] [facility] Heart rate 2022-08-24 23:36:00 83 /min Universi ty of [place] [facility] Body temperature 2022-08-24 23:36:00 36.72 Zuleyma Univ ersity of [place] [facility] Respiratory rate 2022-08-24 23:36:00 18 /min Univ ersity of [place] [facility] Body height 2022-08-24 23:36:00 157.5 cm Universi ty of [place] [facility] Body weight 2022-08-24 23:36:00 130.455 kg Universi ty of [place] [facility] BMI 2022-08-24 23:36:00 52.60 kg/m2 Universi ty of [place] [facility] Oxygen saturation in 2022-08-24 23:36:00 94 /min University of Arterial blood by [facility] Pulse oximetry Branch Systolic blood 2022-05-16 19:35:00 155 mm[Hg] Univer sity of pressure [place] [facility] Diastolic blood 2022-05-16 19:35:00 97 mm[Hg] Unive rsity of pressure [place] [facility] Heart rate 2022-05-16 19:35:00 76 /min Universi ty of [place] [facility] Respiratory rate 2022-05-16 19:35:00 16 /min Univ ersity of [place] [facility] Oxygen saturation in 2022-05-16 19:35:00 94 /min University of Arterial blood by [facility] Pulse oximetry Branch Body temperature 2022-05-16 16:14:00 36.89 Zuleyma Univ ersity of [place] [facility] Body height 2022-05-16 16:14:00 157.5 cm Universi ty of [place] [facility] Body weight 2022-05-16 16:14:00 129.275 kg [facility] BMI 2022-05-16 16:14:00 52.13 kg/m2 [facility] Systolic blood 2020-12-17 00:26:20 171 mm[Hg] Univer sity of pressure [facility] Diastolic blood 2020-12-17 00:26:20 49 mm[Hg] Unive rsity of [facility] Heart rate 2020-12-17 00:26:20 81 /min [facility] Body temperature 2020-12-17 00:26:20 37.17 Zuleyma [facility] 2020-12-17 00:26:20 17 /min [facility] Oxygen saturation in 2020-12-17 00:26:20 97 /min [facility] Arterial blood by [facility] Pulse oximetry Branch BMI 2020-12-16 23:45:00 52.13 kg/m2 [facility] Body height 2020-12-16 23:45:00 157.5 cm [facility] Body weight 2020-12-16 23:45:00 129.275 kg [facility] Procedures Procedure Date / Time Performing Clinician Source Performed DUPLEX VENOUS LEG LEFT - 2022-11-21 00:54:21 Lopez Allen [facility] BY VASCULAR LAB [facility] Branch ASSIGNMENT OF BENEFITS 2022-11-20 22:51:56 Doctor Unassigned, No [facility] CONSENT/REFUSAL FOR 2022-11-20 20:45:08 [facility] Name Medical Branch ASSIGNMENT OF BENEFITS 2022-08-24 23:33:05 Doctor Unassigned, No [facility] TROPONIN I 2022-05-16 18:12:00 Katharina Carlson [facility] CONSENT/REFUSAL FOR 2022-05-16 16:46:42 Doctor Unassigned, No [facility] Name [facility] XR CHEST 1 VW 2022-05-16 16:33:16 Katharina Carlson [facility] URINALYSIS 2022-05-16 16:28:00 Katharina Carlson [facility] URINE DRUG (IMMUNOASSAY) 2022-05-16 16:28:00 Katharina Carlson [facility] SCREEN W/O REFLEX LIPASE 2022-05-16 16:18:00 Katharina Carlson [facility] TROPONIN I 2022-05-16 16:18:00 Katharina Carlson [facility] COMP. METABOLIC PANEL 2022-05-16 16:18:00 Katharina Carlson [facility] ([id number]) [facility] CBC WITH DIFF 2022-05-16 16:18:00 Katharina Carlson [facility] PROTHROMBIN TIME / INR 2022-05-16 16:18:00 Katharina Carlson [facility] ACTIVATED PARTIAL 2022-05-16 16:18:00 Katharina Carlson [facility] PRO-BNP 2022-05-16 16:18:00 Katharina Carlson [facility] XR HAND 3+ VW LEFT 2020-12-17 00:17:09 Lopez Allen [facility] XR TIBIA FIBULA 2 VW 2020-12-17 00:17:09 Lopez Allen [facility] NOTICE OF PRIVACY 2020-12-16 23:34:21 Doctor Unassigned, No Univ [facility] PRACTICES Name [facility] CONSENT/REFUSAL FOR 2020-12-16 23:33:57 Doctor Unassigned, No [facility] DIAGNOSIS AND TREATMENT Name Medical [place] Encounters Start End Encounter Admission Attending Care Care Encounter Source Date/Time Date/Time Type Type Clinicians Facility Department ID 2021-01-01 Emergency [facility] [id number] Univers 07:24:18 ity [facility] 2020-12-31 Emergency [facility] [id number] Univers [facility] Emergency [facility] [id number] Univers [facility] 2022-12-27 2022-12-27 Emergency X CLAUS [facility] ERT [id number] Univers 21:27:00 21:27:00 WARREN [facility] 2022-11-20 2022-11-20 Emergency X TIFFANY Lopez [facility] ERT [id number] Univers 15:49:00 19:54:00 ity of [facility] 2022-11-20 2022-11-20 Emergency Tiffany Lopez [facility] [id number] Univers 15:49:00 19:54:00 Fozia BRIAN [id number] i ty of [place] [id number] [facility] [id number] [place] [id number] [place] 2022-08-24 2022-08-24 Urgent Teresa Alexandre [facility] [id number] Univers 18:20:00 18:40:00 Care Unknown, Attending HEALTH [id number] ity of [place] 4.2.7.2.686 [place] as JONATHAN?BLEA [id number] [address] MEDICAL OFFICE BUILDING 2022-08-24 2022-08-24 Outpatient R BALDOMERO [facility] [id number] Univers 18:20:00 18:20:00 TERESA ity [facility] 2022-08-24 2022-08-24 Orders Doctor BETHANY [id number] Univers 00:00:00 00:00:00 Only Unassigned, JEYSON [id number] ity of [place] [facility] 4.2.7.2.686 [place] as [id number] [facility] 009 [place] 2022-05-16 2022-05-16 Emergency X JEFF [facility] ERT [id number] Univers 11:07:00 15:01:00 KATHARINA itjessy [facility] 2022-05-16 2022-05-16 Emergency Jeff [facility] [id number] Univers 11:07:00 15:01:00 Katharina BRIAN [id number] i ty of [facility] [id number] [facility] [id number] [address] 2020-12-16 2020-12-16 Emergency Lopez Allen [facility] [id number] Univers 18:48:00 19:54:00 Fozia Brian 350.1.13.10 [place]ole [place] 4.2.7.2.686 [facility] [id number] [facility] 084 Branch 2020-06-12 2020-06-12 Outpatient Mandi FITZGERALD [facility] [id number] Univers 14:40:00 11:56:57 BAMBI [facility] 2020-05-22 2020-05-22 [facility] [id number] [facility] 14:40:00 14:40:00 [facility] Results Test Description Test Time Test Comments Results Result Comments Source TROPONIN I 2022-05-16 19:27:06 Test Item Value Reference Range Interpretation Comme nts TROPONIN I (test code = 5010917127) 0.005 ng/mL <=0.034 SVETLANA (test code = SVETLANA) Reference (Normal) Range (defined by the 99th percentile reference limit): <= 0.034 ng/mL Note: Cardiac troponin begins to rise 3-4 hours after the onset of ischemia. Repeat in 4-6 hours if the sample was drawn within 3-4 hours of the onset of the symptom and found normal. Diagnosis of myocardial injury is made with acute changes in cTn concentrations with at least one serial sample above the 99th percentile upper reference limit (URL), taken together with the patient's clinical presentation. Biotin has been reported to cause a negative bias, interpret results relative to patient's use of biotin. Lab Interpretation (test code = Normal 88445-0) [id number] 17:09:47 Test Item Value Reference Range Interpretation Comments TROPONIN I (test code = 0.005 ng/mL <=0.034 [id number]) SVETLANA (test code = SVETLANA) Reference (Normal) Range (defined by the 99th percentile reference limit): <= 0.034 ng/mL Note: Cardiac troponin begins to rise 3-4 hours after the onset of ischemia. Repeat in 4-6 hours if the sample was drawn within 3-4 hours of the onset of the symptom and found normal. Diagnosis of myocardial injury is made with acute changes in cTn concentrations with at least one serial sample above the 99th percentile upper reference limit (URL), taken together with the patient's clinical presentation. Biotin has been reported to cause a negative bias, interpret results relative to patient's use of biotin. Lab Interpretation Normal (test code = 61380-8) [facility] [id number] 17:06:45 Test Item Value Reference Range Interpretation Comments NT-proBNP (test code = 147 pg/mL <=125 H [id number]) SVETLANA (test code = SVETLANA) Biotin has been reported to cause a negative bias, interpret results relative to patient's use of biotin. Lab Interpretation (test Abnormal code = 91621-9) [facility] THRMPLAS [id number] 17:04:08 Test Item Value Reference Range Interpretation Comments APTT Patient (test 26 See_Comment [Automat ed code = 3173-2) message] The system which generated this result transmitted reference range : 23 - 38 Seconds . The reference range was not used to interpr et this result as normal/abnormal . SVETLANA (test code = SVETLANA) The [facility] patient population mean normal value for aPTT is 30 seconds. Lab Interpretation Normal (test code = 57185-4) [id number][facility]-16 17:03:27 Test Item Value Reference Range Interpretation Comments NA (test code = 140 mmol/L 135-145 4084375774) K (test code = 3.9 mmol/L 3.5-5.0 3452011225) CL (test code = 102 mmol/L 98-108 2984629403) CO2 TOTAL (test code = 29 mmol/L 23-31 2647788016) AGAP (test code = 9 2-16 9420357538) BUN (test code = 12 mg/dL 7-23 4378684904) GLUCOSE (test code = 102 mg/dL 70-110 0152996960) CREATININE (test code = 0.71 mg/dL 0.50-1.04 5175968187) TOTAL BILI (test code = 0.5 mg/dL 0.1-1.9 0046467414) CALCIUM (test code = 8.3 mg/dL 8.6-10.6 L 2146152956) T PROTEIN (test code = 7.0 g/dL 6.3-8.2 0688626459) ALBUMIN (test code = 3.8 g/dL 3.5-5.0 6890194004) ALK PHOS (test code = 92 U/L 34-122 4332268745) ALTv (test code = 24 U/L 5-35 1742-6) AST(SGOT) (test code = 25 U/L 13-40 2489002843) eGFR (test code = 86.4 mL/min/1.73m2 8657250296) SVETLANA (test code = SVETLANA) Association of Glomerular Filtration Rate (GFR) and Staging of Kidney Disease* + --+ --+ ------+| GFR (mL/min/1.73 m2) ?| With Kidney Damage ?| ?Without Kidney Damage+ --------+ --------+ +| ?>90 ?| ?Stage one ?| ? Normal ?+ ---+ ---+ -------+| ?60-89 ?| ?Stage two ?| ? Decreased GFR ? + --+ --+ ------+| ?30-59 ?| ?Stage three ?| ? Stage three ? + --+ --+ ------+| ?15-29 ?| ?Stage four ? | ? Stage four ?+ ---+ ---+ -------+| ?<15 (or dialysis) ? ?| ?Stage five ? | ? Stage five ?+ ---+ ---+ -------+ *Each stage assumes the associated GFR level has been in effect for at least three months. ?Stages 1 to 5, with or without kidney disease, indicate chronic kidney disease. Notes: Determination of stages one and two (with eGFR >59mL/min/1.73 m2) requires estimation of kidney damage for at least three months as defined by structural or functional abnormalities of the kidney, manifested by either:Pathological abnormalities or Markers of kidney damage (including abnormalities in the composition of the blood or urine or abnormalities in imaging tests). Lab Interpretation Abnormal (test code = 79835-8) [facility] Test Item Value Reference Range Interpretation Comments LIPASE (test code = 9556737079) 85 U/L 0-220 Lab Interpretation (test code = Normal 16199-3) [facility] / [id number] 17:02:06 Test Item Value Reference Range Interpretation Comments PROTIME PATIENT (test 12.6 See_Comment [Auto mated message] code = 5964-2) The system wh ich generated this result transmitted ref erence range: 12.0 - 1 4.7 Seconds. The re ference range was not u sed to interpret this result as normal/abnor mal. INR (test code = 6301-6) 1.0 Nor mal INR <1.1; Warfarin Therap eutic range 2.0 to 3. 0 or 2.5 to 3.5, dep ending upon the indica tions. Lab Interpretation (test Normal code = 26217-4) [facility] WITH [id number] 16:47:22 Test Item Value Reference Range Interpretation Comments WBC (test code = 6.06 See_Comment [Automated 3708-2) message] The sy stem which generated this result transmitted reference range : 4.30 - 11.10 10*3/?L. The reference range was not used to interpret this result as normal/abnormal . RBC (test code = 4.73 See_Comment [Automated 039-8) message] The sy stem which generated this result transmitted reference range : 3.93 - 5.25 10*6/?L. The reference range was not used to interpret this result as normal/abnormal . HGB (test code = 12.4 g/dL 11.6-15.0 718-7) HCT (test code = 38.1 % 35.7-45.2 4544-3) MCV (test code = 80.5 fL 80.6-95.5 L 787-2) MCH (test code = 26.2 pg 25.9-32.8 785-6) MCHC (test code = 32.5 g/dL 31.6-35.1 786-4) RDW-SD (test code = 36.9 fL 39.0-49.9 L 91695-3) RDW-CV (test code = 12.5 % 12.0-15.5 788-0) PLT (test code = 236 See_Comment [Automated 977-3) message] The sy stem which generated this result transmitted reference range : 166 - 358 10*3/ ?L. The reference r jaye was not used to interpret this result as normal/abnormal . MPV (test code = 8.8 fL 9.5-12.9 L 10775-4) NRBC/100 WBC (test 0.0 See_Comment [Automat ed code = 4482026766) message] The system which generated this result transmitted reference range : 0.0 - 10.0 /100 WBCs. The refer ence range was not u sed to interpret th is result as normal/abnormal . NRBC x10^3 (test code See_Comment [Auto mated = 8223867507) message] The s ystem which generated this result transmitted reference range : 10*3/?L. The reference range was not used to interpret this result as normal/abnormal . GRAN MAT (NEUT) % 58.8 % (test code = 770-8) IMM GRAN % (test code 0.30 % = 8388289167) LYMPH % (test code = 30.7 % 736-9) MONO % (test code = 7.1 % 5905-5) EOS % (test code = 2.6 % 713-8) BASO % (test code = 0.5 % 706-2) GRAN MAT x10^3(ANC) 3.56 10*3/uL 1.88-7.09 (test code = 3808600913) IMM GRAN x10^3 (test 0.00-0.06 code = 2745728190) LYMPH x10^3 (test code 1.86 10*3/uL 1.32-3.29 = 731-0) MONO x10^3 (test code 0.43 10*3/uL 0.33-0.92 = 742-7) EOS x10^3 (test code = 0.16 10*3/uL 0.03-0.39 711-2) BASO x10^3 (test code 0.03 10*3/uL 0.01-0.07 = 704-7) Lab Interpretation Abnormal (test code = 30989-7) [facility]"
[2022-12-27] MEDS ORDERED: ACETAMINOPHEN 500 MG TAB ONE (23:47)
[2022-12-27] MEDS ORDERED: IBUPROFEN 400 MG TAB ONE (23:47)
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
[2022-12-28 01:47] VITALS: TEMP 98.1
[2022-12-28 01:48] VITALS: BP 145/82; O2SAT 96
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
== END 2022-12-28 01:18 | disposition home or self-care (01) ==
LOC: ER 22:18
DX: M25.532 Pain in left wrist (principal); M79.632 Pain in left forearm; V49.40XA Driver injured in collision with unspecified motor vehicles in traffic accident, initial encounter; I10 Essential (primary) hypertension; Z88.5 Allergy status to narcotic agent; Z91.030 Bee allergy status
CPT/HCPCS: 99283

== ENCOUNTER 2023-07-05 13:53 | Emergency (ER) | payer OTHER ==
--- OUTSIDE RECORDS SUMMARY | 2023-07-05 13:56 | XMS REPORT | Continuity of Care Document ---
Author Name Unknown Address [address] [facility] [address] [place] [address] [facility] thconnect Address [address] [facility] [place] [address] Care Team Providers Care Adobe Architect Name Role Phone LA NENA MARTINEZ Araceli Primary Care Physician LAVELLE Auguste Attending Clinician Diane Garcia MD Attending Clinician [phone] Unknown, Attending Attending Clinician UnavailDIANE Cruz Attending Clinician Unavailable TAMMY DEVLIN Attending Clinician UnavailTammy James DO Attending Clinician [phone] Lopez ALLEN Attending Clinician Unavailable Lopez Burris Attending Clinician [phone] Teresa Gomez Attending Clinician [phone] TERESA ALEXANDRE Attending Clinician Unavailable Doctor Unassigned, [place] Attending Clinician U KATHARINA Alcantar Attending Clinician Unavailable Katharina Aguilar MD Attending Clinician [phone] BAMBI FITZGERALD Attending Clinician Unavailable LAVELLE TONY Admitting Clinician Lopez Hui Admitting Clinician Unavailable KATHARINA AGUILAR Admitting Clinician Unavailable Payers Payer Name Policy Type Policy Number Effective Date Expirati on Date Source [facility] [id number] 2018 00:00:00 Problems Condition Name Condition Details Condition Category Status Onset Date Resolution Date Last Treatment Date Treating Clinician Comments Source Elevated brain natriureti c peptide (BNP) level Elevated brain natriureti c peptide (BNP) level Disease Active 08-11 00:00: 00 [facility] Essential hypertensi on Essential hypertensi on Disease Active 08-11 00:00: 00 [facility] Pulmonary hypertensi on Pulmonary hypertensi on Disease Active 08-11 00:00: 00 [facility] Chronic diastolic heart failure Chronic diastolic heart failure Disease Active 08-11 00:00: 00 [facility] Hypertensi ve heart disease with chronic diastolic congestive heart failure Hypertensi ve heart disease with chronic diastolic congestive heart failure Disease Active 08-11 00:00: 00 [facility] Hypoxia Hypoxia Disease Active 08-09 00:00: 00 [facility] Morbid obesity with body mass index of 40.0-49.9 Morbid obesity with body mass index of 40.0-49.9 Disease Active 06-29 00:00: 00 [facility] Total knee replacemen t status Total knee replacemen t status Disease Active 06-29 00:00: 00 [facility] Left knee pain Left knee pain Disease Active 2015-03 00:00: 00 [facility] Left knee pain Left knee pain Disease Active 2015-03 00:00: 00 [facility] Wrist pain, left Wrist pain, left Disease Active 05-13 00:00: 00 [facility] Allergies, Adverse Reactions, Alerts Allergy Name Allergy Type Status Severity Reaction(s) Onset Date Inactive Date Treating Clinician Comments Source MORPHINE DRUG INGREDI Active Hives 2015-03 00:00: 00 [facility] Morphine Propensi ty to adverse reaction s Active Swelling 2015-03 00:00: 00 [facility] Social History Social Habit Start Date Stop Date Quantity Comments Source [facility] Tobacco use and exposure 2023-05-10 00:00:00 2023-05-10 00:00:00 Smokeless tobacco non-user [facility] Alcohol intake 2023-05-10 00:00:00 2023-05-10 00:00:00 0 /d [facility] Exposure to SARS-CoV-2 (event) 2022-05-06 00:00:00 2022-05-16 11:11:00 Not sure [facility] History of Social function 2018-09-09 00:00:00 2018-09-09 00:00:00 [facility] Sex Assigned At 1970 00:00:00 1970 00:00:00 [facility] Smoking Status Start Date Stop Date Source Never smoked tobacco [facility] Medications Ordered Medication Name Filled Medication Name Start Date Stop Date Current Medication? Ordering Clinician Indication Dosage Frequency Signature (SIG) Comments Components Source albuterol (PROVENTIL) 2.5 mg /3 mL (0.083 %) nebulizer solution 2.5 mg 05-10 00:45: 00 05-09 23:40 :00 No [id number] 2.5mg [facility] ipratropium (ATROVENT) 0.02 % nebulizer solution 0.5 mg 05-10 00:30: 00 05-09 23:41 :00 No [id number] .5mg [facility] methylpredn isolone sod succ (SOLU-MEDRO L) injection 125 mg 05-10 00:00: 00 05-09 23:26 :00 No [id number] 125mg [facility] ipratropium -albuteroL (DUONEB) 0.5 mg-3 mg(2.5 mg base)/3 mL nebulizer solution 3 mL 05-10 00:00: 00 05-09 23:26 :00 No [id number] 3mL [facility] benzonatate 100 mg capsule 2024-0 3-10 00:00: 00 Yes [id number] 200mg Take 2 capsules by mouth every 8 (eight) hours as needed for Cough. [facility] guaiFENesin 400 mg tablet - 00:00: 00 Yes [id number] 400mg Take 1 tablet by mouth every 4 (four) hours as needed for Cough. [facility] albuterol 90 mcg/actuati on inhaler 05-09 00:00: 00 Yes [id number] 2{puff} Inhale 2 Puffs every 6 (six) hours as needed for Wheezing or Shortness of Breath. [facility] predniSONE 20 mg tablet 05-09 00:00: 00 05-15 04:59 :00 Yes [id number] 40mg Take 2 tablets by mouth in the morning for [address] [facility] losartan 50 mg tablet 2- 00:00: [address] [facility] topiramate 50 mg tablet 2-25 00:00: [address] [facility] HYDROcodone -acetaminop hen (NORCO 5) 5-325 mg tablet 1 tablet 2022-03 0 02:30: 00 12-28 02:26 :00 No 1{tbl} 1 tablet, Oral, ONCE, 1 dose, On 12/27/22 at 2130, KIARA [facility] naproxen (NAPROSYN) tablet 500 mg 11-20 22:30: 00 11-20 21:23 :00 No 500mg 500 mg, Oral, ONCE, 1 dose, On Daylin 11/20/22 at 1730, Routine [facility] naproxen (NAPROSYN) 500 mg tablet 11-20 00:00: 00 Yes [id number] 500mg Take 1 tablet by mouth in the morning and 1 tablet in the evening. Take with meals. [facility] amoxicillin -clavulanat e 875-125 mg per tablet 6-25 00:00: 00 09-01 04:59 :00 No [id number] 1{tbl} Take 1 tablet by mouth in the morning and 1 tablet in the evening. Do all this for [address] [facility] neomycin-po lymyxin-hyd rocortisone otic solution 08-24 00:00: 00 09-01 04:59 :00 No [id number] 3[drp] Place 3 Drops in right ear 4 (four) times daily for [address] [facility] ibuprofen (IBU) tablet 600 mg 2020-03 01:15: 00 12-17 00:25 :00 No 600mg 600 mg, Oral, ONCE, 1 dose, On 12/16/20 at 2015, KIARA [facility] ibuprofen 600 mg tablet 09-23 00:00: 00 Yes [id number] 600mg Take 1 tablet by mouth every 6 (six) hours as needed for Pain (scale 4-6). [facility] carvedilol (COREG) 12.5 mg tablet 08-10 17:32: 24 Yes 12.5mg Take 12.5 mg by mouth 2 (two) times daily with meals. [facility] ACETAMINOPH EN (TYLENOL ORAL) 08-10 17:32: 24 Yes Take by mouth. [facility] DICLOFENAC 75 mg EC tablet 05-11 00:00: 00 Yes TAKE 1 TABLET BY MOUTH TWICE A DAY WITH A MEAL [facility] PROAIR HFA 90 mcg/actuati on inhaler 1-05 00:00: 00 Yes INHALE 1 TO 2 PUFFS BY MOUTH EVERY 4 TO 6 HOURS NEEDED FOR DIFFICULTY BREATHING [facility] hydralAZINE 25 mg tablet 2016-03 00:00: 00 Yes TAKE 1 TABLET BY MOUTH [address] [facility] furosemide 40 mg tablet 2016-03 00:00: 00 Yes TAKE 1 TO 2 TABLETS BY MOUTH EVERY DAY NEEDED FOR PEDAL EDEMA [facility] KCL 20 mEq tablet 2016-03 00:00: 00 Yes TAKE 1 TABLET BY MOUTH EVERY DAY NEEDED ALWAYS TAKE WITH LASIX [facility] paroxetine 10 mg tablet 2016-03 00:00: 00 Yes TAKE 1 TO 2 TABLETS BY MOUTH EVERY DAY [facility] proMETHazin e (PHENERGAN) 25 mg tablet 2015-03 00:00: 00 Yes 25mg Take 1 tablet by mouth every 4 (four) hours as needed for Nausea and Vomiting (N/V). [facility] Immunizations Ordered Immunization Name Filled Immunization Name Date Status Comments Source SARS-COV-2 COVID-19 PFIZER VACCINE 2020-06-12 00:00:00 Completed [facility] SARS-COV-2 COVID-19 PFIZER VACCINE 2020-06-12 00:00:00 Completed [facility] SARS-COV-2 COVID-19 PFIZER VACCINE 2020-06-12 00:00:00 Completed [facility] SARS-COV-2 COVID-19 PFIZER VACCINE 2020-06-12 00:00:00 Completed [facility] SARS-COV-2 COVID-19 PFIZER VACCINE 2020-05-22 00:00:00 Completed [facility] SARS-COV-2 COVID-19 PFIZER VACCINE 2020-05-22 00:00:00 Completed [facility] SARS-COV-2 COVID-19 PFIZER VACCINE 2020-05-22 00:00:00 Completed [facility] SARS-COV-2 COVID-19 PFIZER VACCINE 2020-05-22 00:00:00 Completed [facility] SARS-COV-2 COVID-19 PFIZER VACCINE Unknown Completed [facility] SARS-COV-2 COVID-19 PFIZER VACCINE Unknown Completed [facility] SARS-COV-2 COVID-19 PFIZER VACCINE Unknown Completed [facility] SARS-COV-2 COVID-19 PFIZER VACCINE Unknown Completed [facility] SARS-COV-2 COVID-19 PFIZER VACCINE Unknown Completed [facility] SARS-COV-2 COVID-19 PFIZER VACCINE Unknown Completed [facility] SARS-COV-2 COVID-19 PFIZER VACCINE Unknown Completed [facility] SARS-COV-2 COVID-19 PFIZER VACCINE Unknown Completed [facility] Vital Signs Vital Name Observation Time Observation Value Comments S ource Systolic blood pressure 2023-05-10 23:17:00 196 mm[Hg] manual [facility] Diastolic blood pressure 2023-05-10 23:17:00 106 mm[Hg] manual [facility] Oxygen saturation in Arterial blood by Pulse oximetry 2023-05-10 23:17:00 92 /min 92-94 fluctuating [facility] Respiratory rate 2023-05-10 23:05:00 22 /min [facility] Oxygen saturation in Arterial blood by Pulse oximetry 2023-05-10 23:05:00 91 /min [facility] Heart rate 2023-05-10 23:02:00 88 /min [facility] Body temperature 2023-05-10 23:02:00 37.11 Zuleyma [facility] Body height 2023-05-10 23:02:00 157.5 cm [facility] Body weight 2023-05-10 23:02:00 136.533 kg [facility] BMI 2023-05-10 23:02:00 55.05 kg/m2 [facility] Systolic blood pressure 2022-12-28 02:22:00 194 mm[Hg] [facility] Diastolic blood pressure 2022-12-28 02:22:00 101 mm[Hg] [facility] Heart rate 2022-12-28 02:22:00 87 /min [facility] Body temperature 2022-12-28 02:22:00 37.17 Zuleyma [facility] Respiratory rate 2022-12-28 02:22:00 22 /min [facility] Body height 2022-12-28 02:22:00 157.5 cm [facility] Body weight 2022-12-28 02:22:00 127.007 kg [facility] BMI 2022-12-28 02:22:00 51.21 kg/m2 [facility] Oxygen saturation in Arterial blood by Pulse oximetry 2022-12-28 02:22:00 94 /min [facility] Systolic blood pressure 2022-11-21 00:00:00 150 mm[Hg] [facility] Diastolic blood pressure 2022-11-21 00:00:00 90 mm[Hg] [facility] Heart rate 2022-11-21 00:00:00 80 /min [facility] Body temperature 2022-11-21 00:00:00 37.06 Zuleyma [facility] Respiratory rate 2022-11-21 00:00:00 18 /min [facility] Oxygen saturation in Arterial blood by Pulse oximetry 2022-11-21 00:00:00 100 /min [facility] Body weight 2022-11-20 20:48:00 130.182 kg [facility] BMI 2022-11-20 20:48:00 52.49 kg/m2 [facility] Systolic blood pressure 2022-08-24 23:38:00 154 mm[Hg] [facility] Diastolic blood pressure 2022-08-24 23:38:00 88 mm[Hg] [facility] Heart rate 2022-08-24 23:36:00 83 /min [facility] Body temperature 2022-08-24 23:36:00 36.72 Zuleyma [facility] Respiratory rate 2022-08-24 23:36:00 18 /min [facility] Body height 2022-08-24 23:36:00 157.5 cm [facility] Body weight 2022-08-24 23:36:00 130.455 kg [facility] BMI 2022-08-24 23:36:00 52.60 kg/m2 [facility] Oxygen saturation in Arterial blood by Pulse oximetry 2022-08-24 23:36:00 94 /min [facility] Systolic blood pressure 2022-05-16 19:35:00 155 mm[Hg] [facility] Diastolic blood pressure 2022-05-16 19:35:00 97 mm[Hg] [facility] Heart rate 2022-05-16 19:35:00 76 /min [facility] Respiratory rate 2022-05-16 19:35:00 16 /min [facility] Oxygen saturation in Arterial blood by Pulse oximetry 2022-05-16 19:35:00 94 /min [facility] Body temperature 2022-05-16 16:14:00 36.89 Zuleyma [facility] Body height 2022-05-16 16:14:00 157.5 cm [facility] Body weight 2022-05-16 16:14:00 129.275 kg [facility] BMI 2022-05-16 16:14:00 52.13 kg/m2 [facility] Systolic blood pressure 2020-12-17 00:26:20 171 mm[Hg] [facility] Diastolic blood pressure 2020-12-17 00:26:20 49 mm[Hg] [facility] Heart rate 2020-12-17 00:26:20 81 /min [facility] Body temperature 2020-12-17 00:26:20 37.17 Zuleyma [facility] Respiratory rate 2020-12-17 00:26:20 17 /min [facility] Oxygen saturation in Arterial blood by Pulse oximetry 2020-12-17 00:26:20 97 /min [facility] BMI 2020-12-16 23:45:00 52.13 kg/m2 [facility] Body height 2020-12-16 23:45:00 157.5 cm [facility] Body weight 2020-12-16 23:45:00 129.275 kg [facility] Procedures Procedure Date / Time Performed Performing Clinician Source POCT MOLECULAR FLU 2023-05-10 23:18:00 Unknown, Attend ing [facility] POCT MOLECULAR RSV 2023-05-10 23:17:00 Unknown, Attend ing [facility] POCT MOLECULAR STREP 2023-05-10 23:16:00 Unknown, Atte gladys [facility] POCT SARS-COV-2 ANTIGEN (BINAX NOW) 2023-05-10 23:14:00 Diane Woods [facility] CONSENT/REFUSAL FOR DIAGNOSIS AND TREATMENT 2022-12-28 02:06:37 Doctor Unassigned, [place] [facility] DUPLEX VENOUS LEG LEFT - BY VASCULAR LAB 2022-11-21 00:54:21 Lopez Allen [facility] ASSIGNMENT OF BENEFITS 2022-11-20 22:51:56 Docto r Unassigned, [place] [facility] CONSENT/REFUSAL FOR DIAGNOSIS AND TREATMENT 2022-11-20 20:45:08 Doctor Unassigned, [place] [facility] ASSIGNMENT OF BENEFITS 2022-08-24 23:33:05 Docto r Unassigned, [place] [facility] TROPONIN I 2022-05-16 18:12:00 Katharina Aguilar [facility] CONSENT/REFUSAL FOR DIAGNOSIS AND TREATMENT 2022-05-16 16:46:42 Doctor Unassigned, [place] [facility] XR CHEST 1 VW 2022-05-16 16:33:16 Katharina Aguilar [facility] URINALYSIS 2022-05-16 16:28:00 Katharina Aguilar [facility]ar[facility] URINE DRUG (IMMUNOASSAY) - COMPREHENSIVE DRUG SCREEN W/O REFLEX 2022-05-16 16:28:00 Katharina Aguilar [facility] LIPASE 2022-05-16 16:18:00 Katharina Aguilar [facility] TROPONIN I 2022-05-16 16:18:00 Katharina Aguilar [facility] COMP. METABOLIC PANEL ([id number]) 2022-05-16 16:18:00 Katharina Aguilar [facility] CBC WITH DIFF 2022-05-16 16:18:00 Katharina Aguilar [facility] PROTHROMBIN TIME / INR 2022-05-16 16:18:00 Eduar Aguilar [facility] ACTIVATED PARTIAL THRMPLAS LICO 2022-05-16 16:18:00 Katharina Aguilar [facility] N-TERMINAL PRO-BNP 2022-05-16 16:18:00 Katharina Aguilar [facility] XR HAND 3+ VW LEFT 2020-12-17 00:17:09 Lopez Allen [facility] XR TIBIA FIBULA 2 VW RIGHT 2020-12-17 00:17:09 Lopez Allen [facility] NOTICE OF PRIVACY PRACTICES 2020-12-16 23:34:21 Doctor Unassigned, [place] [facility] CONSENT/REFUSAL FOR DIAGNOSIS AND TREATMENT 2020-12-16 23:33:57 Doctor Unassigned, [place] [facility] Encounters Start Date/Time End Date/Time Encounter Type Admission Type Attending [facility] Care Facility Care Department Encounter ID Source 2023-06-26 15:25:06 Outpatient LAVELLE HUTCHINSON [facility] OPH [id number] [facility] 2021-01-01 07:24:18 Emergency [facility] [id number] [facility] 2020-12-31 10:37:43 Emergency [facility] [id number] [facility] 2020-12-31 00:17:18 Emergency [facility] [id number] [facility] 2023-05-10 17:40:00 2023-05-10 18:00:00 Urgent Care Diane Woods Unknown, Attending [facility] MEDICAL OFFICE BUILDING 1.114 350.1.13.10 [id number] [facility] 2023-05-10 17:40:00 2023-05-10 17:40:00 Outpatient R DORI WOODSANDA [facility] [id number] [facility] 2022-12-27 21:27:00 2022-12-27 23:39:00 Emergency X TAMMY DEVLIN [facility] ERT [id number] [facility] 2022-12-27 21:27:00 2022-12-27 23:39:00 Emergency Tammy Devlin [facility] 1.114 350.1.13.10 4.2.7.2.[id number] [facility] 2022-11-20 15:49:00 2022-11-20 19:54:00 Emergency X Lopez ALLEN [facility] ERT [id number] [facility] 2022-11-20 15:49:00 2022-11-20 19:54:00 Emergency Lopez Allen [facility] 1.114 350.1.13.10 4.2.7.2.[id number] [facility] 2022-08-24 18:20:00 2022-08-24 18:40:00 Urgent Care RuslanShakilay Unknown, [facility] 1..114 350.1.13.10 4.2.7.2.[id number] [facility] 2022-08-24 18:20:00 2022-08-24 18:20:00 Outpatient TERESA MENDOZA [facility] [id number] [facility] 2022-08-24 00:00:00 2022-08-24 00:00:00 Orders Only Doctor Unassigned, [place] [facility] [id number] [id number] [id number] [facility] 2022-05-16 11:07:00 2022-05-16 15:01:00 Emergency X EDUAR AGUILARNELL [facility] ERT [id number] [facility] 2022-05-16 11:07:00 2022-05-16 15:01:00 Emergency Katharina Aguilar [facility] [id number] 350.1.13.10 4.2.7.2.[id number] [facility] 2020-12-16 18:48:00 2020-12-16 19:54:00 Emergency Lopez Allen [facility] [id number] [id number] [id number] [facility] 2020-06-12 14:40:00 2020-06-12 11:56:57 Outpatient BAMBI MAYER [facility] [id number] [facility] 2020-05-22 14:40:00 2020-05-22 14:40:00 Outpatient BAMBI MAYER [facility] [id number] [facility] Results Test Description Test Time Test Comments Results Result Co mments Source [facility] [id number] 23:29:37* Test Item Value Reference Range Interpretation Comme nts POCT Molecular FluA (test co de = 23875-7) Negative Negative POCT Molecular FluB (test co de = 90602-9) Negative Negative Lab Interpretation (test cod e = 38379-7) Normal [facility] MOLECULAR [id number] 23:29:37* Test Item Value Reference Range Interpretation Comme nts POCT Molecular RSV (test cod e = 90658-7) Negative Negative Lab Interpretation (test cod e = 28979-5) Normal [facility] Molecular [id number] 23:29:37* Test Item Value Reference Range Interpretation Comme nts POCT Molecular FluA (test co de = 49807-8) Negative Negative POCT Molecular FluB (test co de = 16044-3) Negative Negative Lab Interpretation (test cod e = 63084-6) [facility] SARS-COV-2 ANTIGEN (BINAX NOW)2023-05-10 23:29:00* Test Item Value Reference Range Interpretation Comme nts POCT SARS-COV-2 ANTIGEN (krystal t code = 17718-3) Not Detected Not Detected On board controls acceptable with C Line (test code = 3574) Yes Lab Interpretation (test cod e = 49463-5) [facility] SARS-COV-2 ANTIGEN (BINAX NOW)2023-05-10 23:29:00* Test Item Value Reference Range Interpretation Comme nts POCT SARS-COV-2 ANTIGEN (krystal t code = 11045-4) Not Detected Not Detected On board controls acceptable with C Line (test code = 3574) Yes Lab Interpretation (test cod e = 64205-1) [facility] MOLECULAR [id number] 23:24:11* Test Item Value Reference Range Interpretation Comme nts POCT Molecular Strep (test c ode = 07867-0) Negative Negative Lab Interpretation (test cod e = 55377-6) [facility] MOLECULAR [id number] 23:24:11* Test Item Value Reference Range Interpretation Comme nts POCT Molecular Strep (test c ode = 70280-8) Negative Negative Lab Interpretation (test cod e = 08727-4) [id number] 19:27:06* Test Item Value Reference Range Interpretation Comme nts TROPONIN I (test code = 8283964999) 0.005 ng/mL <=0.034 SVETLANA (test code = [...] of biotin. Lab Interpretation (test code = 53949-8) [facility] [id number] 17:09:47* Test Item Value Reference Range Interpretation Comme nts TROPONIN I (test code = 4653591425) 0.005 ng/mL <=0.034 SVETLANA (test code = [...] of biotin. Lab Interpretation (test code = 74295-4) Normal [facility]MINAL [id number] 17:06:45* Test Item Value Reference Range Interpretation Comme nts NT-proBNP (test code = 0824286287) 147 pg/mL <=125 H SVETLANA (test code = SVETLANA) Biotin has been reported to cause a negative bias, interpret results relative to patient's use of biotin. Lab Interpretation (test code = 47459-1) Abnormal [facility] THRMPLAS [id number] 17:04:08* Test Item Value Reference Range Interpretation Comme nts APTT Patient (test code = 3173-2) 26 See_Comment [Automated message] The system which generated this result transmitted reference range: 23 - 38 Seconds. The reference range was not used to interpret this result as normal/abnormal. SVETLANA (test code = SVETLANA) The [facility] patient population mean normal value for aPTT is 30 seconds. Lab Interpretation (test code = 56333-2) Normal [facility]. METABOLIC PANEL ([id number])2022-05-16 17:03:27* Test Item Value Reference Range Interpretation Comme nts NA (test code = 1202574806) 140 mmol/L 135-145 K (test code = 2688428938) 3.9 mmol/L 3.5-5.0 CL (test code = 7235618431) 102 mmol/L 98-108 CO2 TOTAL (test code = 6633680787) 29 mmol/L 23-31 AGAP (test code = 3355387568) 9 2-16 BUN (test code = 5982090283) 12 mg/dL 7-23 GLUCOSE (test code = 4735427677) 102 mg/dL 70-110 CREATININE (test code = 6079120718) 0.71 mg/dL 0.50-1.04 TOTAL BILI (test code = 9949821352) 0.5 mg/dL 0.1-1.1 CALCIUM (test code = 9273368393) 8.3 mg/dL 8.6-10.6 L T PROTEIN (test code = 4122547069) 7.0 g/dL 6.3-8.2 ALBUMIN (test code = 2146394018) 3.8 g/dL 3.5-5.0 ALK PHOS (test code = 6919429489) 92 U/L 34-122 ALTv (test code = 1742-6) 24 U/L 5-35 AST(SGOT) (test code = 2342294800) 25 U/L 13-40 eGFR (test code = 3834057537) 86.4 mL/min/1.73m2 SVETLANA (test code = SVETLANA) Association of [...] or abnormalities in imaging tests). Lab Interpretation (test code = 47664-3) [facility]normal [facility]IP[facility]2023-03-17 17:03:07* Test Item Value Reference Range Interpretation Comme nts LIPASE (test code = 3397438975) 85 U/L 0-220 Lab Interpretation (test cod e = 22460-6) Normal [facility]ennialPROTHROMBIN TIME / [id number] 17:02:06* Test Item Value Reference Range Interpretation Comme nts PROTIME PATIENT (test code = 5964-2) 12.6 See_Comment [[employer]] The system which generated this result transmitted reference range: 12.0 - 14.7 Seconds. The reference range was not used to interpret this result as normal/abnormal. INR (test code = 6301-6) 1.0 Normal INR <1.1; Warfarin Therapeutic range 2.0 to 3.0 or 2.5 to 3.5, depending upon the indications. Lab Interpretation (test code = 97959-6) Normal [facility]CB WITH [id number] 16:47:22* Test Item Value Reference Range Interpretation Comme nts WBC (test code = 6690-2) 6.06 See_Comment [Automated messa ge] The system which generated this result transmitted reference range: 4.30 - 11.10 10*3/?L. The reference range was not used to interpret this result as normal/abnormal. RBC (test code = 789-8) 4.73 See_Comment [Automated Osmopurea ge] The system which generated this result transmitted reference range: 3.93 - 5.25 10*6/?L. The reference range was not used to interpret this result as normal/abnormal. HGB (test code = 718-7) 12.4 g/dL 11.6-15.0 HCT (test code = 4544-3) 38.1 % 35.7-45.2 MCV (test code = 787-2) 80.5 fL 80.6-95.5 L MCH (test code = 785-6) 26.2 pg 25.9-32.8 MCHC (test code = 786-4) 32.5 g/dL 31.6-35.1 RDW-SD (test code = 85367-8) 36.9 fL 39.0-49.9 L RDW-CV (test code = 788-0) 12.5 % 12.0-15.5 PLT (test code = 777-3) 236 See_Comment [Automated Osmopurea ge] The system which generated this result transmitted reference range: 166 - 358 10*3/?L. The reference range was not used to interpret this result as normal/abnormal. MPV (test code = 96039-7) 8.8 fL 9.5-12.9 L NRBC/100 WBC (test code = 2483724607) 0.0 See_Comment [Automated [employer] ssage] The system which generated this result transmitted reference range: 0.0 - 10.0 /100 WBCs. The reference range was not used to interpret this result as normal/abnormal. NRBC x10^3 (test code = 4934369945) See_Comment [Automated Osmopurea ge] The system which generated this result transmitted reference range: 10*3/?L. The reference range was not used to interpret this result as normal/abnormal. GRAN MAT (NEUT) % (test code = 770-8) 58.8 % IMM GRAN % (test code = 3638778686) 0.30 % LYMPH % (test code = 736-9) 30.7 % MONO % (test code = 5905-5) 7.1 % EOS % (test code = 713-8) 2.6 % BASO % (test code = 706-2) 0.5 % GRAN MAT x10^3(ANC) (test code = 3507217497) 3.56 10*3/uL 1.88-7.09 IMM GRAN x10^3 (test code = 2391399441) 0.00-0.06 LYMPH x10^3 (test code = 731-0) 1.86 10*3/uL 1.32-3.29 MONO x10^3 (test code = 742-7) 0.43 10*3/uL 0.33-0.92 EOS x10^3 (test code = 711-2) 0.16 10*3/uL 0.03-0.39 BASO x10^3 (test code = 704-7) 0.03 10*3/uL 0.01-0.07 Lab Interpretation (test code = 38390-3) Abnormal [facility]"
[2023-07-05] MEDS ORDERED: HYDROCODONE/CHLORPHEN 5 ML/OSYR ONE (14:33)
--- NOTE | 2023-07-05 14:48 | RAD REPORT ---
EXAM DESCRIPTION: Cliff Lang And Ankur (2 Views)07/05/2023 2:39 pm CLINICAL HISTORY: Cough COMPARISON: 2019 FINDINGS: Pulmonary vascular congestion is present Lungs probably are clear of acute infiltrate Heart is moderately enlarged
[2023-07-05 15:02] LABS: Absolute Eosinophils 0.2 K/uL (0-0.5); Absolute Monocytes 0.6 K/uL (0.1-1.3); Absolute Neutrophil 5.3 K/uL (1.8-8.0); Basophils % 0.5 % (0-1.3); Eosinophils % 2.8 % (0-4.4); Hematocrit 39.2 % (36.0-45.0); Hemoglobin 12.8 g/dL (12.0-15.0); Lymphocytes % 24.2 % (15.3-44.8); MCH 26.2 pg (27.0-35.0); MCHC 32.6 g/dL (32.0-36.0); MCV 80.4 fL (80-100); Monocytes % 7.1 % (3.3-12.3); Neutrophils % 65.4 % (41.7-73.7); Platelets 243 thou/uL (152-406); RBC Red Blood Cell Count 4.87 M/uL (3.86-4.86); Red Cell Distribution Width 14.4 % (12.1-15.2)
[2023-07-05 15:22] LABS: Anion Gap 4.8 mEq/L (5.0-15.0); Potassium 3.8 mEq/L (3.5-5.1)
[2023-07-05] MEDS ORDERED: IPRATROPIUM BROM 0.5MG/2.5ML ONE (15:51)
[2023-07-05] MEDS ORDERED: ALBUTEROL 2.5 MG/3 ML NEB SOL ONE (15:51)
--- NOTE | 2023-07-05 16:21 | ER ---
Nurse's Notes [facility] Name: Deyvi Avendano Age: 53 yrs Sex: Female : 1970 Arrival Date: 07/05/2023 Time: 13:53 Bed 19 Private MD: ESTEFANIA SUE Diagnosis: Cough Presentation: 07/04 13:59 Chief complaint: Patient states: Coughing for 2 weeks, not getting better. Has seen her nj1 PCP when it first started, given steroids and "something else". Coronavirus screen: Vaccine status: Patient reports receiving the 2nd dose of the covid vaccine. Ebola Screen: Patient denies travel to an Ebola-affected area in the 21 days before illness onset. Initial Sepsis Screen: Does the patient meet any 2 criteria? No. Patient's initial sepsis screen is negative. Does the patient have a suspected source of infection? No. Patient's initial sepsis screen is negative. Risk Assessment: Do you want to hurt yourself or someone else? Patient reports no desire to harm self or others. Onset of symptoms was June 2023. 13:59 Method Of Arrival: Ambulatory [facility] 13:59 Acuity: KENYETTA 3 [facility] Triage Assessment: 14:04 General: Appears in no apparent distress. uncomfortable, Behavior is calm, cooperative, nj appropriate for age. Respiratory: Reports cough that is persistent cough. Respiratory: Airway is patent Respiratory effort is even, unlabored. Historical: - Allergies: 14:01 Bees; nj1 14:01 Bleach (Sodium Hypochlorite); [facility] 14:01 Morphine; [facility] - PMHx: 14:01 Hypertension; DVT; [facility] - PSHx: 14:01 section; Cholecystectomy; Left knee replacement; section; co1 section; - Immunization history:: Client reports receiving the 2nd dose of the Covid vaccine. - Infectious Disease History:: Denies. - Social history:: Smoking status: Patient denies any tobacco usage or history of. Screenin:05 [facility] ED Fall Risk Assessment (Adult) History of falling in the last 3 months, rs5 including since admission No falls in past 3 months (0 pts) Confusion or Disorientation No (0 pts) Intoxicated or Sedated No (0 pts) Impaired Gait No (0 pts) Mobility Assist Device Used No (0 pt) Altered Elimination No (0 pt) Score/Fall Risk Level 0 - 2 = Low Risk Oriented to surroundings, Maintained a safe environment. Abuse screen: Denies threats or abuse. Nutritional screening: No deficits noted. Tuberculosis screening: No symptoms or risk factors identified. Assessment: 14:05 General: Appears in no apparent distress. uncomfortable, Behavior is calm, cooperative. rs5 Pain: Denies pain. Neuro: Level of Consciousness is awake, alert, obeys commands, Oriented to person, place, time, situation. Cardiovascular: Rhythm is regular. Respiratory: Reports cough that is Airway is patent Respiratory effort is even, unlabored, Respiratory pattern is regular, symmetrical. GI: Abdomen is round non-distended. : No signs and/or symptoms were reported regarding the genitourinary system. EENT: No signs and/or symptoms were reported regarding the EENT system. Derm: Skin is intact, Skin is pink, warm \\T\\ dry. Musculoskeletal: Range of motion: intact in all extremities. 15:10 Reassessment: Patient and/or family updated on plan of care and expected duration. Pain rs5 level reassessed. Patient is alert, oriented x 3, equal unlabored respirations, skin warm/dry/pink. Respiratory: Denies cough. 16:20 Reassessment: No changes from previously documented assessment. rs5 Vital Signs: 13:59 BP 145 / 83; Pulse 81; Resp 18; Temp 98.7(O); Pulse Ox 92% on R/A; Weight 126.1 kg; nj1 Height 5 ft. 2 in. ; 16:20 BP 140 / 80; Pulse 77; Resp 18; Pulse Ox 99% on R/A; rs5 13:59 Body Mass Index 50.85 (126.10 kg, 157.48 cm) nj1 ED Course: 13:55 Patient arrived in ED. rg4 13:55 ESTEFANIA SUE is Private Physician. rg4 13:55 Becky Fonseca PA-C is PHCP. sb4 13:55 Feliberto Albert MD is Attending Physician. sb4 14:00 IV discontinued, intact, bleeding controlled, No redness/swelling at site. Pressure rs5 dressing applied. 14:01 Triage completed. nj1 14:02 Arm band placed on right wrist. nj1 14:04 Patient placed in an exam room, on a stretcher. ll1 14:05 Patient has correct armband on for positive identification. Placed in gown. Bed in low rs5 position. Call light in reach. Side rails up X2. 14:05 No provider procedures requiring assistance completed. rs5 14:18 Luiz Correa, RN is Primary Nurse. rs5 14:40 XRAY Chest Pa And Lat (2 Views) In Process Unspecified. EDMS 16:20 ESTEFANIA SUE is Referral Physician. sb4 Administered Medications: 14:34 Drug: Tussionex Pennkinetic ER PO Suspension 5 ml PO once Route: PO; rs5 15:00 Follow up: Response: No adverse reaction rs5 15:55 Drug: DuoNeb Nebulize (3:1) (2.5 mg - 0.5 mg) 3 ml Nebulizer once Route: Nebulizer; rs5 16:15 Follow up: Response: No adverse reaction rs5 Medication: 14:38 VIS not applicable for this client. rs5 Outcome: 16:20 Discharge ordered by MD. sb4 16:40 Discharged to home ambulatory, rs5 16:40 Condition: stable 16:40 Discharge instructions given to patient, family, Instructed on discharge instructions, follow up and referral plans. medication usage, Demonstrated understanding of instructions, follow-up care, medications, Prescriptions given X 3, 16:44 Patient left the ED. rs5 Signatures: Dispatcher [employer] Unique Vidales rg4 Varghese Atknison, RN RN ll1 Becky Fonseca PARicky PA-C sb4 Luiz Correa, RN RN rs5 Sabiha Weeks RN RN nj1
--- NOTE | 2023-07-05 16:21 | EDPHYS ---
Physician Documentation [facility] Name: Deyvi Avendano Age: 53 yrs Sex: Female : 1970 Arrival Date: 07/05/2023 Time: 13:53 Bed 19 Private MD: ESTEFANIA SUE ED Physician Feliberto Albert HPI: 07/04 14:31 This 53 yrs old Female presents to ER via Ambulatory with complaints of Cough. sb4 14:31 cough x 3 weeks. saw PCP 2 weeks ago, prescribed course of steroids. cough has not sb4 improved. states she checked her oxygen at home and it was 85%. does report some shortness of breath. denies any chest pain, fever, chills. Historical: - Allergies: 14:01 Bees; nj1 14:01 Bleach (Sodium Hypochlorite); nj1 14:01 Morphine; nj1 - PMHx: 14:01 Hypertension; DVT; nj1 - PSHx: 14:01 section; Cholecystectomy; Left knee replacement; section; nj1 section; - Immunization history:: Client reports receiving the 2nd dose of the Covid vaccine. - Infectious Disease History:: Denies. - Social history:: Smoking status: Patient denies any tobacco usage or history of. ROS: 14:31 Constitutional: Negative for fever, chills, and weight loss, sb4 14:31 Respiratory: Positive for cough, dyspnea on exertion, 14:31 All other systems are negative, Exam: 14:31 Head/Face: Normocephalic, atraumatic. Eyes: Extra-ocular motions intact. Periorbital sb4 areas with no swelling, redness, or edema. ENT: Mucous membranes moist. Cardiovascular: Regular rate and rhythm with a normal S1 and S2. Respiratory: Lungs have equal breath sounds bilaterally, clear to auscultation and percussion. No rales, rhonchi or wheezes noted. No increased work of breathing, no retractions or nasal flaring. Abdomen/GI: Soft, non-tender, no distension. Skin: Warm, dry with normal turgor. Normal color with no rashes, no lesions, and no evidence of cellulitis. MS/ Extremity: Pulses equal, no cyanosis. Neurovascular intact. Full, normal range of motion. Neuro: Awake and alert, GCS 15, oriented to person, place, time, and situation. Motor strength 5/5 in all extremities. Sensory grossly intact. 14:31 Constitutional: The patient appears in no acute distress, alert, awake, obese, Vital Signs: 13:59 BP 145 / 83; Pulse 81; Resp 18; Temp 98.7(O); Pulse Ox 92% on R/A; Weight 126.1 kg; nj1 Height 5 ft. 2 in. ; 16:20 BP 140 / 80; Pulse 77; Resp 18; Pulse Ox 99% on R/A; rs5 13:59 Body Mass Index 50.85 (126.10 kg, 157.48 cm) nj1 MDM: 14:04 Patient medically screened. sb4 16:20 Data reviewed: vital signs, nurses notes, lab test result(s), radiologic studies, and sb4 as a result, I will discharge patient. Consideration of Admission/Observation Escalation of care including admission/observation considered. Counseling: I had a detailed discussion with the patient and/or guardian regarding the historical points, exam findings, and any diagnostic results supporting the discharge/admit diagnosis, lab results, radiology results, to return to the emergency department if symptoms worsen or persist or if there are any questions or concerns that arise at home. 07/04 14:21 Order name: BMP; Complete Time: 15:25 sb4 07/04 14:21 Order name: CBC with Diff; Complete Time: 15:10 sb4 07/04 14:21 Order name: Magnesium; Complete Time: 15:25 sb4 07/04 14:21 Order name: NT PRO-BNP; Complete Time: 15:25 sb4 07/04 14:21 Order name: XRAY Chest Pa And Lat (2 Views); Complete Time: 14:49 sb4 07/04 14:21 Order name: IV Saline Lock; Complete Time: 14:34 sb4 07/04 14:21 Order name: Labs collected and sent; Complete Time: 14:34 sb4 07/04 14:21 Order name: O2 Per Protocol; Complete Time: 14:34 sb4 07/04 14:21 Order name: O2 Sat Monitoring; Complete Time: 14:34 sb4 Administered Medications: 14:34 Drug: Tussionex Pennkinetic ER PO Suspension 5 ml PO once Route: PO; rs5 15:00 Follow up: Response: No adverse reaction rs5 15:55 Drug: DuoNeb Nebulize (3:1) (2.5 mg - 0.5 mg) 3 ml Nebulizer once Route: Nebulizer; rs5 16:15 Follow up: Response: No adverse reaction rs5 Disposition Summary: 07/05/23 16:20 Discharge Ordered Notes: Location: Home sb4 Problem: an ongoing problem sb4 Symptoms: have improved sb4 Condition: Stable sb4 Diagnosis - Cough sb4 Followup: sb4 - With: VIKRAM TK - When: As needed - Reason: Recheck today's complaints, Re-evaluation by your physician Discharge Instructions: - Discharge Summary Sheet sb4 - Cough, Adult, [id number] sb4 Forms: - Antibiotic Education sb4 - Patient Portal Instructions sb4 - Leadership Thank You Letter sb4 Prescriptions: - azithromycin 250 mg Oral tablet - take 1 dose pack ORAL route as directed on dose pack For 250 mg dose pack: take sb4 500 mg today (day 1), then 250 mg for 4 days (days 2-5); 1 Pack; Refills: 0, Product Selection Permitted - Prednisone 20 mg Oral Tablet - take 2 tablets ORAL route once daily for 5 days; 10 tablet; Refills: 0, Product sb4 Selection Permitted - Guaifenesin AC 10-100 mg/5 mL Oral Liquid - take 10 milliliters ORAL route every 4 hours As needed; 240 milliliter; sb4 Refills: 0, Product Selection Permitted Signatures: Dispatcher [employer] Becky Lira PA-C PA-C sb4 Luiz Correa RN RN rs5 Sabiha Weeks RN RN nj1
[2023-07-05 17:00] VITALS: BP 145/83; TEMP 98.7; O2SAT 92
== END 2023-07-05 16:44 | disposition home or self-care (01) ==
LOC: ER 13:53
DX: R05.9 Cough, unspecified (principal); Z88.5 Allergy status to narcotic agent; Z91.030 Bee allergy status; Z91.048 Other nonmedicinal substance allergy status
CPT/HCPCS: 85025; 80048; 36415; 83735; 83880; 71046; 94640; 99284; J7613; J7644

== ENCOUNTER 2023-07-30 14:41 | Inpatient (IN) | payer OTHER ==
--- OUTSIDE RECORDS SUMMARY | 2023-07-30 14:44 | XMS REPORT | Continuity of Care Document ---
Author Name Unknown Address [address] [facility] [address] [id number] [facility] thconnect Address [address] [facility] [place] [address] Care Team Providers Care Sourcing Intern Name Role Phone Unavailable Unavailable Unavailable Payers Payer Name Policy Type Policy Number Effective Date Expirati on Date Source
[2023-07-30 16:02] LABS: Absolute Eosinophils 0.2 K/uL (0-0.5); Absolute Lymphocytes (CBC) 1.7 K/uL (0.7-4.9); Absolute Monocytes 0.4 K/uL (0.1-1.3); Absolute Neutrophil 5.2 K/uL (1.8-8.0); Basophils % 0.4 % (0-1.3); Eosinophils % 3.1 % (0-4.4); Hematocrit 39.2 % (36.0-45.0); Hemoglobin 12.6 g/dL (12.0-15.0); Lymphocytes % 22.2 % (15.3-44.8); MCH 26.1 pg (27.0-35.0); MCHC 32.1 g/dL (32.0-36.0); MCV 81.4 fL (80-100); Monocytes % 4.7 % (3.3-12.3); Neutrophils % 69.6 % (41.7-73.7); Nucleated Red Blood Cells % 0.5 % (0-0); Platelets 236 thou/uL (152-406); RBC Red Blood Cell Count 4.81 M/uL (3.86-4.86); Red Cell Distribution Width 15.8 % (12.1-15.2)
[2023-07-30 16:05] LABS: PT Prothrombin Time 11.2 SECONDS (9.5-12.5); PTT, Activated Partial Thromb 32.3 SECONDS (24.3-36.9); Protime INR 1.02
--- NOTE | 2023-07-30 16:18 | RAD REPORT ---
EXAM DESCRIPTION: RAD - Chest Pa And Lat (2 Views) - 07/30/2023 3:26 pm CLINICAL HISTORY: DYSPNEA Chest pain. COMPARISON: <Comparisons> FINDINGS: Moderate bilateral pulmonary opacities likely representing pulmonary edema. The heart is m oderately enlarged. No displaced fractures. IMPRESSION: Moderate CHF versus volume overload.
[2023-07-30 16:21] LABS: Anion Gap 3.6 mEq/L (5.0-15.0); Magnesium 2.1 mg/dL (1.6-2.4); Potassium 3.6 mEq/L (3.5-5.1)
[2023-07-30 16:26] LABS: Troponin High Sensitivity 263.7 pg/mL (<58.9)
--- NOTE | 2023-07-30 16:47 | ER ---
Nurse's Notes [facility] Name: Deyvi Avendano Age: 53 yrs Sex: Female : 1970 Arrival Date: 07/30/2023 Time: 14:41 Bed 6 Private MD: Diagnosis: new onset CHF;elevated troponin Presentation: 07/29 14:50 Chief complaint: Patient states: SOB AT HOME O2 AT HOME 79% TO 80% AND HEADACHE. HR 207 db AT HOME. TODAY AT 1200 WAS FOUND SLEEPING IN CAR AND WHEN WOKEN UP WAS "DISORIENTED" . SOB WITH EXERTION X 1 WEEK. Coronavirus screen: Client denies travel out of the [place] in the last 14 days. At this time, the client does not indicate any symptoms associated with coronavirus-19. Ebola Screen: Patient negative for fever greater than or equal to 101.5 degrees Fahrenheit, and additional compatible Ebola Virus Disease symptoms Patient denies exposure to infectious person. Patient denies travel to an Ebola-affected area in the 21 days before illness onset. No symptoms or risks identified at this time. Initial Sepsis Screen: Does the patient meet any 2 criteria? No. Patient's initial sepsis screen is negative. Does the patient have a suspected source of infection? No. Patient's initial sepsis screen is negative. Risk Assessment: Do you want to hurt yourself or someone else? Patient reports no desire to harm self or others. Onset of symptoms was July 30, 2023. 14:50 Method Of Arrival: Ambulatory db 14:50 Acuity: KENYETTA 2 db Triage Assessment: 14:54 Headache History: The patient has had previous headaches and this one is similar to db previous episodes. General: Appears in no apparent distress. comfortable, Behavior is calm, cooperative. Pain: Complains of pain in head. Neuro: Level of Consciousness is awake, alert, obeys commands, Oriented to person, place, time, situation. Historical: - Allergies: 14:54 Bees; db 14:54 Bleach (Sodium Hypochlorite); db 14:54 Morphine; db - PMHx: 14:54 Hypertension; DVT; db 14:57 Myocardial infarction; db - PSHx: 14:54 section; section; Left knee replacement; Cholecystectomy; db - Immunization history:: Adult Immunizations unknown. - Infectious Disease History:: Denies. - Social history:: Smoking status: Patient denies any tobacco usage or history of. Screenin:01 [facility] ED Fall Risk Assessment (Adult) History of falling in the last 3 months, ld1 including since admission No falls in past 3 months (0 pts). Abuse screen: Denies threats or abuse. Denies injuries from another. Nutritional screening: No deficits noted. Tuberculosis screening: No symptoms or risk factors identified. Assessment: 17:01 General: Appears in no apparent distress. comfortable, Behavior is calm, cooperative, ld1 appropriate for age. Pain: Denies pain. Neuro: Level of Consciousness is awake, alert, obeys commands, Oriented to person, place, time, situation. Cardiovascular: Capillary refill < 3 seconds Patient's skin is warm and dry. Respiratory: Airway is patent Respiratory effort is even, unlabored. Respiratory: Reports shortness of breath at rest on exertion. GI: Abdomen is obese. : No signs and/or symptoms were reported regarding the genitourinary system. EENT: No signs and/or symptoms were reported regarding the EENT system. Derm: No signs and/or symptoms reported regarding the dermatologic system. Musculoskeletal: No signs and/or symptoms reported regarding the musculoskeletal system. 19:30 Reassessment: Patient appears in no apparent distress at this time. No changes from km8 previously documented assessment. Patient and/or family updated on plan of care and expected duration. Pain level reassessed. Patient is alert, oriented x 3, equal unlabored respirations, skin warm/dry/pink. 19:30 General: Appears in no apparent distress. comfortable, Behavior is calm, cooperative, km8 appropriate for age. Pain: Denies pain. Neuro: Level of Consciousness is awake, alert, obeys commands, Oriented to person, place, time, situation. Cardiovascular: Patient's skin is warm and dry. Edema is 2+ to BLE. Respiratory: Airway is patent Respiratory effort is even, unlabored, Respiratory pattern is regular, symmetrical. Derm: No signs and/or symptoms reported regarding the dermatologic system. Skin is intact, Skin is dry, Skin is normal, Skin temperature is warm. Musculoskeletal: No signs and/or symptoms reported regarding the musculoskeletal system. Range of motion: intact in all extremities. Vital Signs: 14:50 BP 176 / 101; Pulse 83; Resp 20; Temp 99.6; Pulse Ox 91% ; Weight 131.54 kg; Height 5 db ft. 2 in. ; 17:01 BP 164 / 93; Pulse 82; Resp 20; Pulse Ox 92% on R/A; ld1 18:39 BP 139 / 73; Pulse 79; Resp 18; Pulse Ox 94% on R/A; ld1 19:00 BP 142 / 68; Pulse 81; Resp 20; Pulse Ox 96% on R/A; km8 14:50 Body Mass Index 53.04 (131.54 kg, 157.48 cm) db ED Course: 14:44 Patient arrived in ED. mg5 14:45 Becky Fonseca PA-C is PHCP. sb4 14:45 Frances Clay MD is Attending Physician. sb4 14:54 Triage completed. db 14:54 Arm band placed on. db 15:27 XRAY Chest Pa And Lat (2 Views) In Process Unspecified. EDMS 15:40 Inserted saline lock: 20 gauge in left antecubital area, using aseptic technique. Blood lg3 collected. 15:41 BMP Sent. lg3 15:41 CBC with Diff Sent. lg3 15:41 Magnesium Sent. lg3 15:41 NT PRO-BNP Sent. lg3 15:41 PT-INR Sent. lg3 15:41 Ptt, Activated Sent. lg3 15:41 Troponin HS Sent. lg3 16:42 Warm blanket given. jl7 16:46 Nadiya Mckinley MD is Hospitalizing Provider. sb4 17:01 Patient has correct armband on for positive identification. Placed in gown. Bed in low ld1 position. Call light in reach. Side rails up X2. Pulse ox on. NIBP on. Door closed. Noise minimized. 17:01 No provider procedures requiring assistance completed. ld1 17:03 Annabella Vila, RN is Primary Nurse. ld1 17:11 Chest For PE Angio CT In Process Unspecified. EDMS 19:47 Patient admitted, IV remains in place. km8 19:48 Provided Education on: admission process. km8 Administered Medications: 17:01 Drug: Furosemide IVP 40 mg IVP once; give over 2 minutes Route: IVP; Site: left ld1 antecubital; 19:48 Follow up: Response: No adverse reaction km8 Medication: 19:48 VIS not applicable for this client. km8 Outcome: 16:47 Decision to Hospitalize by Provider. sb4 20:50 Admitted to Med/surg accompanied by zully martinez 20:50 Condition: stable 20:50 Instructed on the need for admit, 20:50 Patient left the ED. kb3 Signatures: Dispatcher [employer] EDMillie Brody, RN RN jl7 Ada Amanda, RN RN lg3 Annabella Vila, RN RN ld1 Joy An RN RN kb3 Afsaneh Chiu RN RN Becky Henderson PARicky PARicky [email or web address] Irma [facility] Jessica Srinivasan RN RN km8 Corrections: (The following items were deleted from the chart) 14:55 14:50 Chief complaint: Patient states: SOB AT HOME O2 AT HOME 79% TO 80% AND HEADACHE. db HR 207 AT HOME. TODAY AT 1200 WAS FOUND SLEEPING IN CAR AND WHEN WOKEN UP WAS "DISORIENTED" db
--- NOTE | 2023-07-30 16:47 | EDPHYS ---
Physician Documentation [facility] Name: Deyvi Avendano Age: 53 yrs Sex: Female : 1970 Arrival Date: 07/30/2023 Time: 14:41 Bed 6 Private MD: ED Physician Frances Clay HPI: 07/29 15:09 This 53 yrs old Female presents to ER via Ambulatory with complaints of Dizziness, sb4 Headache, Shortness Of Breath. 15:09 patient reports shortness of breath and fatigue since yesterday. states her had low sb4 oxygen and high heart rate yesterday and possibly had a syncopal episode. she does report a cardiac history but denies any chronic respiratory problems. denies any associated respiratory symptoms- no cough, sputum, wheezing, does not smoke. Historical: - Allergies: 14:54 Bees; db 14:54 Bleach (Sodium Hypochlorite); db 14:54 Morphine; db - PMHx: 14:54 Hypertension; DVT; db 14:57 Myocardial infarction; db - PSHx: 14:54 section; section; Left knee replacement; Cholecystectomy; db - Immunization history:: Adult Immunizations unknown. - Infectious Disease History:: Denies. - Social history:: Smoking status: Patient denies any tobacco usage or history of. ROS: 15:09 Cardiovascular: Negative for chest pain, palpitations, and edema, sb4 15:09 Constitutional: Positive for fatigue, 15:09 Respiratory: Positive for dyspnea on exertion, shortness of breath, at rest. 15:09 Neuro: Positive for dizziness, headache, 15:09 All other systems are negative, Exam: 15:09 Head/Face: Normocephalic, atraumatic. Eyes: Extra-ocular motions intact. Periorbital sb4 areas with no swelling, redness, or edema. ENT: Mucous membranes moist. Cardiovascular: Regular rate and rhythm with a normal S1 and S2. Respiratory: Lungs have equal breath sounds bilaterally, clear to auscultation and percussion. No rales, rhonchi or wheezes noted. No increased work of breathing, no retractions or nasal flaring. Abdomen/GI: Soft, non-tender, no distension. Skin: Warm, dry with normal turgor. Normal color with no rashes, no lesions, and no evidence of cellulitis. MS/ Extremity: Pulses equal, no cyanosis. Neurovascular intact. Full, normal range of motion. 15:09 Constitutional: The patient appears in no acute distress, alert, awake, obese, Vital Signs: 14:50 BP 176 / 101; Pulse 83; Resp 20; Temp 99.6; Pulse Ox 91% ; Weight 131.54 kg; Height 5 db ft. 2 in. ; 17:01 BP 164 / 93; Pulse 82; Resp 20; Pulse Ox 92% on R/A; ld1 18:39 BP 139 / 73; Pulse 79; Resp 18; Pulse Ox 94% on R/A; ld1 19:00 BP 142 / 68; Pulse 81; Resp 20; Pulse Ox 96% on R/A; km8 14:50 Body Mass Index 53.04 (131.54 kg, 157.48 cm) db MDM: 14:51 Patient medically screened. sb4 16:46 Data reviewed: vital signs, nurses notes, lab test result(s), EKG, radiologic studies, sb4 and as a result, I will admit patient. Consideration of Admission/Observation Patient was admitted/placed on observation. Care significantly affected by the following chronic conditions: Hypertension. Counseling: I had a detailed discussion with the patient and/or guardian regarding the historical points, exam findings, and any diagnostic results supporting the discharge/admit diagnosis, lab results, radiology results, the need for further work-up and treatment in the hospital. 07/29 15:00 Order name: BMP; Complete Time: 16:27 sb4 07/29 15:00 Order name: CBC with Diff; Complete Time: 16:07 sb4 07/29 15:00 Order name: Magnesium; Complete Time: 16:27 sb4 07/29 15:00 Order name: NT PRO-BNP; Complete Time: 16:27 sb4 07/29 15:00 Order name: PT-INR; Complete Time: 16:07 sb4 07/29 15:00 Order name: Ptt, Activated; Complete Time: 16:07 sb4 07/29 15:00 Order name: Troponin HS; Complete Time: 16:27 sb4 07/29 17:16 Order name: Urinalysis w/ reflexes EDMS 07/29 17:16 Order name: Basic Metabolic Panel EDMS 07/29 17:16 Order name: Basic Metabolic Panel EDMS 07/29 17:16 Order name: Basic Metabolic Panel EDMS 07/29 17:16 Order name: Basic Metabolic Panel EDMS 07/29 17:16 Order name: Basic Metabolic Panel EDMS 07/29 17:16 Order name: CBC with Automated Diff EDMS 07/29 17:16 Order name: CBC with Automated Diff EDMS 07/29 17:16 Order name: CBC with Automated Diff EDMS 07/29 17:16 Order name: CBC with Automated Diff EDMS 07/29 17:16 Order name: CBC with Automated Diff EDMS 07/29 17:16 Order name: Magnesium EDMS 07/29 17:16 Order name: Magnesium EDMS 07/29 17:16 Order name: Magnesium EDMS 07/29 17:16 Order name: Magnesium EDMS 07/29 17:16 Order name: Magnesium EDMS 07/29 17:16 Order name: NT PRO-BNP EDMS 07/29 17:16 Order name: NT PRO-BNP EDMS 07/29 17:17 Order name: NT PRO-BNP EDMS 07/29 17:17 Order name: NT PRO-BNP EDMS 07/29 17:17 Order name: NT PRO-BNP EDMS 07/29 17:17 Order name: Troponin High Sensitivity EDMS 07/29 17:17 Order name: Troponin High Sensitivity; Complete Time: 20:38 EDMS 07/29 17:17 Order name: Troponin High Sensitivity EDMS 07/29 17:17 Order name: Troponin High Sensitivity EDMS 07/29 15:00 Order name: XRAY Chest Pa And Lat (2 Views); Complete Time: 16:25 sb4 07/29 16:30 Order name: Chest For PE Angio CT; Complete Time: 17:19 sb4 07/29 17:23 Order name: Echo with Doppler EDMS 07/29 17:23 Order name: Echo with Doppler EDMS 07/29 15:00 Order name: EKG; Complete Time: 15:01 sb4 07/29 17:16 Order name: CONS Physician Consult EDMS 07/29 15:00 Order name: Cardiac monitoring; Complete Time: 16:50 sb4 07/29 15:00 Order name: EKG - Nurse/Tech; Complete Time: 15:41 sb4 07/29 15:00 Order name: IV Saline Lock; Complete Time: 15:41 sb4 07/29 15:00 Order name: Labs collected and sent; Complete Time: 15:41 sb4 07/29 15:00 Order name: O2 Per Protocol; Complete Time: 15:41 sb4 07/29 15:00 Order name: O2 Sat Monitoring; Complete Time: 15:41 sb4 07/29 16:28 Order name: Misc. Order: need repeat EKG; Complete Time: 17:01 sb4 EC:17 Rate is 79 beats/min. Rhythm is regular, Normal Sinus Rhythm. WI interval is normal at sb4 150 msec. QRS interval is normal at 88 msec. QT interval is normal at 396 msec. Interpreted by me. Reviewed by me. 17:01 Rate is 82 beats/min. Rhythm is regular, Normal Sinus Rhythm. WI interval is normal at sb4 154 msec. QRS interval is normal at 86 msec. QT interval is normal at 378 msec. No Q waves. T waves are Normal. Clinical impression: No evidence of ischemia. Interpreted by me. Reviewed by me. Administered Medications: 17:01 Drug: Furosemide IVP 40 mg IVP once; give over 2 minutes Route: IVP; Site: left ld1 antecubital; 19:48 Follow up: Response: No adverse reaction km8 Disposition Summary: 07/30/23 16:47 Hospitalization Ordered Notes: Hospitalization Status: Inpatient Admission sb4 Provider: Nadiya Mckinley Location: Telemetry/[facility] (Inpatient) sb4 Condition: Fair sb4 Problem: new sb4 Symptoms: are unchanged sb4 Bed/Room Type: Standard sb4 Room Assignment: 230(07/30/23 19:00) sp Diagnosis - new onset CHF sb4 - elevated troponin sb4 Forms: - Medication Reconciliation Form sb4 - SBAR form sb4 - Leadership Thank You Letter sb4 Signatures: Dispatcher [employer] Vannesa Conn Lauren, RN RN ld1 Afsaneh Chiu RN RN Becky Henderson PA-C PA-C sb4 Jessica Srinivasan RN km8 Corrections: (The following items were deleted from the chart) 19:00 16:47 sb4 sp
[2023-07-30] MEDS ORDERED: FUROSEMIDE 40 MG/4 ML VIAL ONE (16:51)
--- NOTE | 2023-07-30 17:11 | P.HP ---
Certification for Inpatient Patient admitted to: Inpatient With expected LOS: <2 Midnights Practitioner: I am a practitioner with admitting privileges, knowledge of patient current condition, hospital course, and medical plan of care. Services: Services provided to patient in accordance with Admission requirements found in Title 42 Section 412.3 of the Code of Federal Regulations Patient History Date of Service: 07/30/23 Reason for admission: NSTEMI History of Present Illness: 53 yrs old Female with past medical history of Hypertension; DVT, Myocardial infarction presents to the hospital with shortness of breath. She reports shortness of breath started 1 week ago. Reports associated lower extremity edema.. Dizziness. Nonproductive cough. She reports started after being sick 1 week ago. She reports checking her heart rate heart rate was elevated on pulse ox. She denies previously of heart failure. She reports history of DVT on Xarelto however she has no longer taking Xarelto. No history of COPD or tobacco use. Plan to admit for acute heart failure, NSTEMI, elevated troponin. Cardiology to transfer cardiology to consult. ER evaluation P 176 / 101; Pulse 83; Resp 20; Temp 99.6; Pulse Ox 91% ; Weight 131.54 kg; Height 5 ft. 2 14:50 Body Mass Index 53.04 Rate is 79 beats/min. Rhythm is regular, Normal Sinus Rhythm. ME interval is normal at 150 msec. QRS interval is normal at 88 msec. QT interval is normal at 396 msec troponin 263.7, BNP 473, start Lovenox 1 mg/kg, start Lovenox 1 mg/kg twice daily, CT PE FINDINGS: No evidence of pulmonary thromboembolism. No acute aortic finding demonstrated.Mild interstitial pulmonary edema. Trace pleural fluid bilaterally. Enlarged mediastinal lymph node seen, largest measuring 11 mm. No concerning bony finding.IMPRESSION: No evidence of pulmonary thromboembolism. Mild CHF versus volume overload. CXR IMPRESSION: Moderate CHF versus volume overload. Allergies morphine Allergy (Verified 03/10/19 06:07) Itching/Hives/Rash Home Medications: Aspirin 325 mg PO DAILY 03/10/19 Carvedilol [Coreg] 12.5 mg PO BID 03/10/19 Paroxetine HCl [Paxil] 20 mg PO BID 03/10/19 Codeine/APAP [Tylenol #3*] 1 tab PO Q6H PRN tab 03/11/19 Hydrochlorothiazide 25 mg PO DAILY #30 tablet 03/11/19 - Past Medical/Surgical History Diabetic: No -: Breast Ca -: HTN -: GA -: DVT -: Left knee replacement -: choley -: c-sec x3 -: carpal tunnel left hand - Family History Father -: Diabetes Mother -: Diabetes, Other (see notes) Notes: Parkinsons - Social History Alcohol use: No CD- Drugs: No Caffeine use: Yes Review of Systems PER HPI Physical Examination - Physical Exam General: Alert, In no apparent distress, Oriented x3, Obese HEENT: Atraumatic, Normocephalic Neck: Supple, 2+ carotid pulse no bruit Respiratory: Normal air movement, Crackles/rales Cardiovascular: Normal pulses, Regular rate/rhythm Capillary refill: <2 Seconds Gastrointestinal: Normal bowel sounds, Soft and benign Musculoskeletal: No clubbing, No swelling Integumentary: No rashes, No breakdown, Other (BLE edema) Neurological: Normal speech, Normal strength at 5/5 x4 extr - Studies Laboratory Data (last 24 hrs) 07/30/23 07/30/23 07/30/23 15:39 15:39 15:39 WBC 7.50 Hgb 12.6 Hct 39.2 Plt Count 236 PT 11.2 INR 1.02 APTT 32.3 Sodium 136 Potassium 3.6 BUN 8 Creatinine 0.71 Glucose 112 H Magnesium 2.1 Assessment and Plan - Plan Assessment/Plan acute heart failure NSTEMI elevated troponin Cardiology consult, telemetry, lipid panel in the a.m., as needed analgesics, LASIX, ECHO ordered for am antilipid, aspirin, beta-francisco aspi full coderin, antilipid, nitro, ER evaluation P 176 / 101; Pulse 83; Resp 20; Temp 99.6; Pulse Ox 91% ; Weight 131.54 kg; Height 5 ft. 2 14:50 Body Mass Index 53.04 EKG Rate is 79 beats/min. Rhythm is regular, Normal Sinus Rhythm. ME interval is normal at 150 msec. QRS interval is normal at 88 msec. QT interval is normal at 396 msec troponin 263.7, BNP 473, start Lovenox 1 mg/kg, start Lovenox 1 mg/kg twice daily, CT PE FINDINGS: No evidence of pulmonary thromboembolism. No acute aortic finding demonstrated.Mild interstitial pulmonary edema. Trace pleural fluid bilaterally. Enlarged mediastinal lymph node seen, largest measuring 11 mm. No concerning bony finding.IMPRESSION: No evidence of pulmonary thromboembolism. Mild CHF versus volume overload. CXR IMPRESSION: Moderate CHF versus volume overload. Hypertension ukn controll resume appop home meds, prn antihypertensives HX DVT HX Myocardial infarction Full code DVT 1 mg/kgDVT 1mg/kg Diet NPO after MN Discharge Plan: Home - Advance Directives Does patient have a Living Will: No Does patient have a Durable POA for Healthcare: No - Code Status/Comfort Care Code Status: Full Code Critical Care: No Time Spent Managing Pts Care (In Minutes): 55
[2023-07-30] MEDS ORDERED: ONDANSETRON 4 MG/2 ML VIAL IV PRN (17:13)
--- NOTE | 2023-07-30 17:18 | RAD REPORT ---
EXAM DESCRIPTION: CT - Chest For Pe Angio - 07/30/2023 5:09 pm CLINICAL HISTORY: Chest pain. DYSPNEA COMPARISON: Chest For Pe Angio dated 06/05/2015 TECHNIQUE: CT angiogram of the pulmonary arteries was performed with MIP. All CT scans are performed using dose optimization technique as appropriate and may include automated exposure control or mA/KV adjustment according to patient size. FINDINGS: No evidence of pulmonary thromboembolism. No acute aortic finding demonstrated. Mild interstitial pulmonary edema. Trace pleural fluid bilaterally. Enlarged mediastinal lymph node seen, largest measuring 11 mm. No concerning bony finding. IMPRESSION: No evidence of pulmonary thromboembolism. Mild CHF versus volume overload.
[2023-07-30] MEDS ORDERED: NITROGLYCERIN 0.4 MG/TAB SL PRN (17:21)
[2023-07-30] MEDS ORDERED: DIPHENHYDRAMINE 50 MG/ML VIAL IV PRN (17:22)
[2023-07-30] MEDS ORDERED: METOPROLOL TARTRATE 5 MG/5 ML INJ IV PRN (17:23)
[2023-07-30] MEDS: FUROSEMIDE 40 MG/4 ML VIAL IV SCH (22:01)
[2023-07-30] MEDS: carvediloL 12.5 MG TAB PO SCH (22:01)
[2023-07-30] MEDS: ATORVASTATIN 40 MG TAB PO SCH (22:01)
[2023-07-30 23:41] VITALS: BMI 53.9
[2023-07-31 00:20] LABS: Specific Gravity 1.009 (1.005-1.030); Urine Bilirubin NEGATIVE (Negative); Urine Blood Negative (Negative); Urine Clarity Clear (Clear); Urine Color Colorless (Yellow); Urine Glucose NEGATIVE (Negative); Urine Ketones NEGATIVE (Negative); Urine Microscopic Reflex YN NO UMIC; Urine Nitrite NEGATIVE (Negative); Urine Protein NEGATIVE (Negative); Urine Urobilinogen Normal (Normal)
[2023-07-31 03:56] LABS: Absolute Basophils 0.1 K/uL (0-0.5); Absolute Eosinophils 0.2 K/uL (0-0.5); Absolute Lymphocytes (CBC) 1.8 K/uL (0.7-4.9); Absolute Monocytes 0.4 K/uL (0.1-1.3); Absolute Neutrophil 4.6 K/uL (1.8-8.0); Eosinophils % 3.5 % (0-4.4); Hematocrit 36.4 % (36.0-45.0); Hemoglobin 12.2 g/dL (12.0-15.0); Lymphocytes % 24.8 % (15.3-44.8); MCH 27.1 pg (27.0-35.0); MCHC 33.6 g/dL (32.0-36.0); MCV 80.6 fL (80-100); MPV 7.1 fL (7.6-11.3); Monocytes % 5.3 % (3.3-12.3); Neutrophils % 65.4 % (41.7-73.7); Nucleated Red Blood Cells % 0.1 % (0-0); Platelets 227 thou/uL (152-406); RBC Red Blood Cell Count 4.51 M/uL (3.86-4.86); Red Cell Distribution Width 15.4 % (12.1-15.2)
[2023-07-31 04:09] LABS: Anion Gap 5.4 mEq/L (5.0-15.0); Magnesium 2.1 mg/dL (1.6-2.4); Potassium 3.4 mEq/L (3.5-5.1)
[2023-07-31 04:17] LABS: Troponin High Sensitivity 221.5 pg/mL (<58.9)
[2023-07-31] MEDS: KCL 20 MEQ/100 mL IVPB 20 MEQ/100 ML BAG IV SCH (05:47)
[2023-07-31] MEDS: NA CHLORIDE 0.9% 250 ML ONE (05:47)
--- NOTE | 2023-07-31 08:00 | P.PN ---
Subjective Date of Service: 08/01/23 Chief Complaint: NSTEMI Admitted with heart failure, diuretics, echo ordered Elevated troponin, Lovenox 1 millie per cake added patient is having no chest pain Pending heart cath - Physical Exam General: Alert, In no apparent distress, Oriented x3, Obese HEENT: Atraumatic, Normocephalic Neck: Supple, 2+ carotid pulse no bruit Respiratory: Normal air movement, Crackles/rales Cardiovascular: Normal pulses, Regular rate/rhythm Capillary refill: <2 Seconds Gastrointestinal: Normal bowel sounds, Soft and benign Musculoskeletal: No clubbing, No swelling Integumentary: No rashes, No breakdown, Other (BLE edema) Neurological: Normal speech, Normal strength at 5/5 x4 extr Review of Systems Per HPI Physical Examination - Vital Signs Temperature: 97.2 F Blood Pressure: 117/59 Pulse: 71 Respirations: 16 Pulse Ox (%): 92 - Studies Laboratory Data (last 24 hrs) 07/30/23 07/30/23 07/30/23 15:39 15:39 15:39 WBC 7.50 Hgb 12.6 Hct 39.2 Plt Count 236 PT 11.2 INR 1.02 APTT 32.3 Sodium 136 Potassium 3.6 BUN 8 Creatinine 0.71 Glucose 112 H Magnesium 2.1 Assessment And Plan - Plan Assessment/Plan acute heart failure NSTEMI elevated troponin Cardiology consult, telemetry, lipid panel in the a.m., as needed analgesics, LASIX, ECHO ordered for am antilipid, aspirin, beta-francisco aspi full coderin, antilipid, nitro, ER evaluation P 176 / 101; Pulse 83; Resp 20; Temp 99.6; Pulse Ox 91% ; Weight 131.54 kg; Height 5 ft. 2 14:50 Body Mass Index 53.04 EKG Rate is 79 beats/min. Rhythm is regular, Normal Sinus Rhythm. LA interval is normal at 150 msec. QRS interval is normal at 88 msec. QT interval is normal at 396 msec troponin 263.7, BNP 473, start Lovenox 1 mg/kg, start Lovenox 1 mg/kg twice daily, CT PE FINDINGS: No evidence of pulmonary thromboembolism. No acute aortic finding demonstrated.Mild interstitial pulmonary edema. Trace pleural fluid bilaterally. Enlarged mediastinal lymph node seen, largest measuring 11 mm. No concerning bony finding.IMPRESSION: No evidence of pulmonary thromboembolism. Mild CHF versus volume overload. CXR IMPRESSION: Moderate CHF versus volume overload. Hypertension ukn control resume appop home meds, prn antihypertensives HX DVT HX Myocardial infarction Full code DVT 1 mg/kgDVT 1mg/kg Diet NPO after MN Discharge Plan: Home - Code Status/Comfort Care Code Status: Full Code Critical Care: No Time Spent Managing PTS Care (In Minutes): 35
[2023-07-31] MEDS: ASPIRIN 325 MG TAB PO SCH (09:28)
[2023-07-31] MEDS: ACETAMINOPHEN 500 MG TAB PO ONE (12:32)
[2023-07-31] MEDS: NA CHLORIDE 0.9% 500 ML ONE (14:48)
[2023-07-31] MEDS ORDERED: VERAPAMIL HCL 10 MG/4 ML VIAL IV ONE (15:10)
[2023-07-31] MEDS ORDERED: HEPARIN 5000 UNIT/ML 1 ML VIAL ONE (15:10)
[2023-07-31] MEDS ORDERED: HEPA 1000U/500MLS 2,000 UNIT/1,000 ML BAG IV ONE (15:10)
[2023-07-31] MEDS ORDERED: HEPARIN 10,000 UNIT/10 ML VIAL IV ONE (15:10)
[2023-07-31] MEDS ORDERED: LIDOCAINE 1% 20 ML MDV ONE (15:10)
[2023-07-31] MEDS ORDERED: TICAGRELOR 90 MG TABLET PO ONE (15:10)
[2023-07-31] MEDS ORDERED: MIDAZOLAM HCL 2 MG/2 ML INJ ONE (15:10)
[2023-07-31] MEDS ORDERED: FENTANYL CITR 100 MCG/2 ML ONE (15:10)
[2023-07-31] MEDS ORDERED: ASPIRIN 325 MG TAB ONE (15:11)
[2023-07-31] MEDS ORDERED: CLOPIDOGREL 75 MG TABLET ONE (15:11)
--- NOTE | 2023-07-31 16:50 | EKG ---
Test Date: 2023-07-30 Test Time: 16:57:06 Sole Layer Hand: Lisa SOTO MEASUREMENT RESULTS: Intervals: Rate: 82 TX: 154 QRSD: 86 QT: 378 QTc: 441 Dixon: P: 60 TX: 154 QRS: 143 T: 1 INTERPRETIVE STATEMENTS: Normal sinus rhythm Possible Right ventricular hypertrophy Abnormal ECG Compared to ECG 07/30/2023 15:38:54 T-wave abnormality no longer present Possible ischemia no longer present Electronically Signed On 07-31-23 16:47:45 CDT by Asher Canales
--- NOTE | 2023-07-31 16:50 | EKG ---
Test Date: 2023-07-30 Test Time: 15:38:54 Lock Maintenance Supervisor: HB MEASUREMENT RESULTS: Intervals: Rate: 79 MT: 150 QRSD: 88 QT: 396 QTc: 454 Ellis: P: 59 MT: 150 QRS: -5 T: 96 INTERPRETIVE STATEMENTS: Normal sinus rhythm T wave abnormality, consider lateral ischemia Abnormal ECG Compared to ECG 03/10/2019 01:39:08 No significant changes Electronically Signed On 07-31-23 16:48:25 CDT by Asher Canales
--- NOTE | 2023-07-31 17:12 | CON ---
Date of Consultation: 07/31/2023 Reason For Consultation: Non-STEMI, elevated troponin with chest pain. History Of Present Illness: 53-year-old female, history of hypertension, DVT, morbidly obese, presen yamilet to the emergency room with shortness of breath, lower extremity edema, and chest tightness and fe els generally weak with lightheaded. Upon evaluation in the emergency room after Lasix, she feels mu ch better but still has some chest discomfort on and off that radiates to the left shoulder. Denies having active chest pain right now. Past Medical History: As outlined above in the HPI to include hypertension, DVT, MO. Past Surgical History: Knee replacement, cholecystectomy, . Medications: Refer to reconciliation sheet for detailed list. Allergies: MORPHINE. Family History: No premature coronary artery disease or cancer. Social History: She does not smoke or drink. Does not use any drugs. Review of Systems: All systems were reviewed and they were negative except as mentioned in the HPI. Physical Examination: Vital Signs: Reviewed. Head and Neck: Pupils are equal, reactive to light. Intact eye movements. No JVD. No cervical lym phadenopathy. Neck is supple. Thyroid is not enlarged. Lungs: Clear to auscultation bilaterally. No rhonchi, wheezing, or crackles. No accessory muscle u se. Heart: Regular rate and rhythm. No extra sounds. Abdomen: Soft, nontender. Bowel sounds positive. No organomegaly. No masses or hernia. No rigidi ty or rebound. Extremities: No edema, clubbing, or cyanosis. Intact pulses. Skin: No rash. No nodule. Neurologic: Alert, awake, oriented x3. No acute focal deficit appreciated. Lymph Nodes: No cervical or axillary lymphadenopathy. Investigations: Troponin in the 250 range. BUN is 10, creatinine 0.72, and hemoglobin is 12.2. Assessment And Recommendations: 1.Acute congestive heart failure exacerbation, doing well with the diuresis, low-salt diet encourage d and continue Lasix. 2.Elevated troponin with chest pain suggestive of [id number] myocardial infarction. 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 We will plan for coronary angiogram today. Continue baby aspirin. 3.Hypertension. Blood pressure is acceptable. Continue home medications. 4.Dyslipidemia. Continue statin. She is on Lipitor 40 mg q.h.s. 5.Obesity, morbid. She was counseled in details to follow low-calorie diet and exercise and lose we ight. SR/MODL Voice ID: [id number] Report ID: [id number]
[2023-07-31] MEDS: ATORVASTATIN 40 MG TAB PO SCH (20:28)
[2023-07-31] MEDS: HYDROMORPHONE HCL 0.5 MG/0.5 ML INJ IV PRN (20:28)
[2023-07-31] MEDS: POTASSIUM CL SA 10 MEQ TAB PO ONE (21:47)
--- NOTE | 2023-07-31 22:24 | OP ---
Date of Procedure: 07/31/2023 Surgeon: KIRSTEN PALACIOS Procedures Performed: 1.Selective coronary angiogram. 2.Left heart catheterization. Indication: 1.Acute congestive heart failure. 2.Elevated troponin suggestive of [id number] myocardial infarction. Access: Right radial artery and closed with TR band. Complications: None. Bleeding: Less than 50 mL. Complications: None. Anesthesia: Total sedation time was 45 minutes. Used fentanyl and Versed. Description Of Procedure: After risks, benefits, alternatives were explained, the patient agreed to procedure and signed informed consent. The patient was brought into the cardiac catheterization [facility], prepped and draped in the usual sterile fashion. Then I accessed right radial artery using p [employer] micropuncture kit, placed a 6-Danish Slender sheath and took 5-Danish [place] 4.0 catheter int o the aortic root across the aortic valve over the wire, measured the LVEDP. Pullback did not record any significant gradient and then engaged the left main, took standard views and exchanged for 6-[facility] JR4 catheter, engaged the RCA, took standard views, and then removed the catheter and the sheath and placed TR band with good hemostasis. Findings: 1.Left main; large and normal. 2.LAD; very large and normal. Normal diagonal branches. 3.Left circumflex; codominant, large and normal. 4.RCA; large and normal and has codominant circulation. 5.Elevated LVEDP at 30 mmHg. Conclusion: 1.No significant coronary artery disease. 2.Severely elevated LVEDP, likely due to diastolic heart failure. Recommendation: Keep inhouse for IV diuretics for 1 more day and then switch to oral, and low-salt d iet, exercise, and low-calorie diet. Encouraged to lose weight. SR/MODL Voice ID: [id number] Report ID: [id number]
[2023-08-01 06:40] VITALS: O2SAT 91
[2023-08-01 07:10] LABS: Absolute Eosinophils 0.3 K/uL (0-0.5); Absolute Lymphocytes (CBC) 1.5 K/uL (0.7-4.9); Absolute Monocytes 0.3 K/uL (0.1-1.3); Absolute Neutrophil 3.8 K/uL (1.8-8.0); Basophils % 0.7 % (0-1.3); Eosinophils % 4.6 % (0-4.4); Hematocrit 37.5 % (36.0-45.0); Hemoglobin 12.6 g/dL (12.0-15.0); Lymphocytes % 24.9 % (15.3-44.8); MCH 27.1 pg (27.0-35.0); MCHC 33.6 g/dL (32.0-36.0); MCV 80.7 fL (80-100); Monocytes % 5.5 % (3.3-12.3); Neutrophils % 64.3 % (41.7-73.7); Platelets 232 thou/uL (152-406); RBC Red Blood Cell Count 4.65 M/uL (3.86-4.86); Red Cell Distribution Width 15.4 % (12.1-15.2)
[2023-08-01 07:28] LABS: Anion Gap 2.7 mEq/L (5.0-15.0); Magnesium 2.1 mg/dL (1.6-2.4); Potassium 3.7 mEq/L (3.5-5.1)
--- NOTE | 2023-08-01 07:33 | P.DS ---
Admission Date: 07/30/23 Discharge Date: 08/01/23 Disposition: ROUTINE DISCHARGE Reason for Admission: NSTEMI Brief History of Present Illness: 53 yrs old Female with past medical history of Hypertension; DVT, Myocardial infarction presents to the hospital with shortness of breath. She reports shortness of breath started 1 week ago. Reports associated lower extremity edema.. Dizziness. Nonproductive cough. She reports started after being sick 1 week ago. She reports checking her heart rate heart rate was elevated on pulse ox. She denies previously of heart failure. She reports history of DVT on Xarelto however she has no longer taking Xarelto. No history of COPD or tobacco use. Plan to admit for acute heart failure, NSTEMI, elevated troponin. Cardiology to transfer cardiology to consult. ER evaluation P 176 / 101; Pulse 83; Resp 20; Temp 99.6; Pulse Ox 91% ; Weight 131.54 kg; Height 5 ft. 2 14:50 Body Mass Index 53.04 Rate is 79 beats/min. Rhythm is regular, Normal Sinus Rhythm. [place] interval is normal at 150 msec. QRS interval is normal at 88 msec. QT interval is normal at 396 msec troponin 263.7, BNP 473, start Lovenox 1 mg/kg, start Lovenox 1 mg/kg twice daily, CT PE FINDINGS: No evidence of pulmonary thromboembolism. No acute aortic finding demonstrated.Mild interstitial pulmonary edema. Trace pleural fluid bilaterally. Enlarged mediastinal lymph node seen, largest measuring 11 mm. No concerning bony finding.IMPRESSION: No evidence of pulmonary thromboembolism. Mild CHF versus volume overload. CXR IMPRESSION: Moderate CHF versus volume overload. General: Alert, In no apparent distress, Oriented x3, Obese HEENT: Atraumatic, Normocephalic Neck: Supple, 2+ carotid pulse no bruit Respiratory: Normal air movement, Crackles/rales Cardiovascular: Normal pulses, Regular rate/rhythm Capillary refill: <2 Seconds Gastrointestinal: Normal bowel sounds, Soft and benign Musculoskeletal: No clubbing, No swelling Integumentary: No rashes, No breakdown, Other (BLE edema) Neurological: Normal speech, Normal strength at 5/5 x4 extr Hospital Course: 53 yrs old Female with past medical history of Hypertension; DVT, Myocardial infarction presents to the hospital with shortness of breath. She reports shortness of breath started 1 week ago. She was evaluated by cardiology, was noted elevated troponins, status postcardiac cath was clean. Noted diastolic heart failure. Will follow-up with cardiology after discharge PROBLEM: NSTEMI, elevated troponin, status postcardiac cath with Dr. Canales, will need to follow-up with cardiology outpatient, normal cath Acute heart failure, new onset start diuretics, keep blood pressure log, take blood pressure log to cardiology appointment-will start Lasix and potassium p.o. Rad/Lab/Micro: CTA of the chest negative for PE Mild CHF versus volume overload. Cardiac cath No significant coronary artery disease. 2. Severely elevated LVEDP, likely due to diastolic heart failure Continue home medicines as previously prescribed GOAL: Clear understanding of disease process INSTRUCTIONS: Physician Discharge Instructions: -Follow-up with PCP in 1 to 2 weeks -Please call Dr. Mckinley at [phone] if any questions regarding hospital stay -Please call nursing station at [phone] if any nursing or medication questions -Return to the emergency room if symptoms worsen Diet: ADA, low sodium Activity: Fall precautions Vital Signs/Physical Exam: Temp Pulse Resp BP Pulse Ox 97.2 F 63 16 119/54 L 91 08/01/23 04:00 08/01/23 05:55 08/01/23 04:00 08/01/23 05:55 08/01/23 04:00 Laboratory Data at Discharge: WBC 6.00 thou/uL (4.3-10.9) 08/01/23 06:57 Hgb 12.6 g/dL (12.0-15.0) 08/01/23 06:57 Hct 37.5 % (36.0-45.0) 08/01/23 06:57 Plt Count 232 thou/uL (152-406) 08/01/23 06:57 PT 11.2 SECONDS (9.5-12.5) 07/30/23 15:39 INR 1.02 07/30/23 15:39 APTT 32.3 SECONDS (24.3-36.9) 07/30/23 15:39 Sodium 135 mEq/L (136-145) L 08/01/23 06:57 Potassium 3.7 mEq/L (3.5-5.1) 08/01/23 06:57 BUN 11 mg/dL (7-18) 08/01/23 06:57 Creatinine 0.71 mg/dL (0.55-1.02) 08/01/23 06:57 Glucose 113 mg/dL (74-106) H 08/01/23 06:57 Magnesium 2.1 mg/dL (1.6-2.4) 08/01/23 06:57 Home Medications: Aspirin 325 mg PO DAILY 03/10/19 Carvedilol [Coreg] 12.5 mg PO BID 03/10/19 Paroxetine HCl [Paxil] 20 mg PO BID 03/10/19 Codeine/APAP [Tylenol #3*] 1 tab PO Q6H PRN tab 03/11/19 Hydrochlorothiazide 25 mg PO DAILY #30 tablet 03/11/19 Atorvastatin Calcium [Lipitor] 40 mg PO BEDTIME tab 08/01/23 Atorvastatin Calcium [Lipitor] 40 mg PO BEDTIME tab 08/01/23 Furosemide [Lasix] 40 mg PO DAILY 30 Days #30 tab 08/01/23 Potassium Chloride 10 meq PO 30 MIN BEFORE HS #30 tab 08/01/23 carvediloL [Coreg*] 12.5 mg PO BID 6AM 6PM tab 08/01/23 New Medications: Furosemide [Lasix] 40 mg PO DAILY 30 Days #30 tab Potassium Chloride 10 meq PO 30 MIN BEFORE HS #30 tab Physician Discharge Instructions: 53 yrs old Female with past medical history of Hypertension; DVT, Myocardial infarction presents to the hospital with shortness of breath. She reports shortness of breath started 1 week ago. She was evaluated by cardiology, was noted elevated troponins, status postcardiac cath was clean. Noted diastolic heart failure. Will follow-up with cardiology after discharge PROBLEM: NSTEMI, elevated troponin, status postcardiac cath with Dr. Canales, will need to follow-up with cardiology outpatient, normal cath Acute heart failure, new onset start diuretics, keep blood pressure log, take blood pressure log to cardiology appointment Rad/Lab/Micro: CTA of the chest negative for PE Mild CHF versus volume overload. Cardiac cath No significant coronary artery disease. 2. Severely elevated LVEDP, likely due to diastolic heart failure Continue home medicines as previously prescribed GOAL: Clear understanding of disease process INSTRUCTIONS: Physician Discharge Instructions: -Follow-up with PCP in 1 to 2 weeks -Please call Dr. Mckinley at [phone] if any questions regarding hospital stay -Please call nursing station at [phone] if any nursing or medication questions -Return to the emergency room if symptoms worsen Diet: ADA, low sodium Activity: Fall precautions Followup: Vianey EASON,Ashley-Urban Campbell DO [Primary Care Provider] - Asher Canales MD [ACTIVE - CAN ADMIT] - Time spent managing pt's care (in minutes): 55
[2023-08-01] MEDS: CLOPIDOGREL 75 MG TABLET PO SCH (08:54)
[2023-08-01 14:13] VITALS: BP 117/59; TEMP 97.2
--- NOTE | 2023-08-03 07:55 | ECHO ---
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 2-DIMENSIONAL: YES M.MODE: YES DOPPLER: YES COLOR FLOW: YES TDS: PORTABLE: YES DEFINITY: BUBBLE STUDY: DIAGNOSIS: ACUTE HEART FAILURE CARDIAC HISTORY: CATHERIZATION: NO SURGERY: NO PROSTHETIC VALVE: NO PACEMAKER: NO MEASUREMENTS (cm) DIASTOLIC (NORMALS) SYSTOLIC (NORMALS) IVSd 1.2 (0.6-1.2) LA Diam 3.2 (1.9-4.0) LVEF 55-60% LVIDd 4.3 (3.5-5.7) LVIDs 3.3 (2.0-3.5) %FS LVPWd 1.3 (0.6-1.2) Ao Diam 3.1 (2.0-3.7) 2 DIMENSIONAL ASSESSMENT: RIGHT ATRIUM: NORMAL LEFT ATRIUM: NORMAL RIGHT VENTRICLE: NORMAL LEFT VENTRICLE: NORMAL TRICUSPID VALVE: MILD TRICUSPID REGURGITATION MITRAL VALVE: MILD MITRAL REGURGITATION PULMONIC VALVE: NORMAL AORTIC VALVE: NORMAL PERICARDIAL EFFUSION: NONE AORTIC ROOT: NORMAL LEFT VENTRICULAR WALL MOTION: NORMAL DOPPLER/COLOR FLOW: SEE BELOW COMMENTS: 1. NORMAL LEFT VENTRICULAR EJECTION FRACTION 55-60% WITH NORMAL WALL MOTION 2. GRADE II DIASTOLIC DYSFUNCTION 3. MILD MITRAL REGURGITATION 4. MILD TRICUSPID REGURGITATION 5. PULMONARY HYPERTENSION WITH RIGHT VENTRICULAR SYSTOLIC PRESSSURE OF 45 mmHg PLUS RIGHT ATRIAL PRESSURE TECHNOLOGIST: JUAN CARLOS DEVLIN
== END 2023-08-01 10:08 | disposition home or self-care (01) | DRG 280 ==
LOC: ER 14:41 → ERHOLD 17:12 → 2ND 20:38
PROVIDERS: ADMIT Hospitalist; ATTEND Hospitalist
PROC: 4A023N7 Measurement of Cardiac Sampling and Pressure, Left Heart, Percutaneous Approach (ICD-10-PCS; principal; 2023-07-31)
PROC: B2111ZZ Fluoroscopy of Multiple Coronary Arteries using Low Osmolar Contrast (ICD-10-PCS; 2023-07-31)
DX: I11.0 Hypertensive heart disease with heart failure (principal); I50.31 Acute diastolic (congestive) heart failure; I21.4 Non-ST elevation (NSTEMI) myocardial infarction; Z68.43 Body mass index [BMI] 50.0-59.9, adult; E66.01 Morbid (severe) obesity due to excess calories; E78.5 Hyperlipidemia, unspecified; I25.2 Old myocardial infarction; Z71.3 Dietary counseling and surveillance; Z88.5 Allergy status to narcotic agent; Z85.3 Personal history of malignant neoplasm of breast; Z79.82 Long term (current) use of aspirin; Z90.49 Acquired absence of other specified parts of digestive tract; Z91.09 Other allergy status, other than to drugs and biological substances; Z79.02 Long term (current) use of antithrombotics/antiplatelets; Z91.030 Bee allergy status; Z96.652 Presence of left artificial knee joint; Z79.899 Other long term (current) drug therapy; Z86.718 Personal history of other venous thrombosis and embolism
CPT/HCPCS: 36415; 71046; 71275; 76937; 80048; 81003; 83735; 83880; 84132; 84484; 85025; 85610; 85730; 93005; 93306; 93458; 96374; 99152; 99153; 99285; C1893; J1170; J1644; J1650; J1940; J2001; J2250; J3010; J3480; J7040; J7050; Q9966; Q9967